=== PATIENT | male | born 1950 | race Caucasian/White ===

== ENCOUNTER 2016-12-18 17:19 | Emergency (ER) | payer MEDICARE, OTHER ==
--- NOTE | 2016-12-18 17:40 | EDM.PDOC ---
ED HPI Skin/Rash - General Chief Complaint: Skin Complaint Time Seen by Provider: 12/18/16 17:30 Source: Reports: Patient History Limitations: Reports: No limitations - History of Present Illness INITIAL COMMENTS - FREE TEXT/NARRATIVE: 3 days ago patient complaining backache and abdominal discomfort. next day he started to develop a rash to his left abdomen that extends around to his back. it is very painful. he is also complaining of generalized bodyaches, fever, chills, fatigue, and postnasal drainage. no diarrhea, vomiting, sob, chest pain. Timing: Reports: still present Location, Skin: Reports: abdomen, back Quality: Reports: Ache, Burning Severity: moderate Known Identified Source: no Associated Symptoms: Reports: headaches, fever/chills, malaise, loss of appetite - Related Data Allergies Allergy/AdvReac Type Severity Reaction Status Date / Time latex Allergy Severe Rash Verified 12/18/16 17:42 atorvastatin [From Lipitor] Allergy Muscle Verified 12/18/16 17:42 Aches azithromycin Allergy Other Verified 12/18/16 17:42 ezetimibe [From Zetia] Allergy Other Verified 12/18/16 17:42 fenofibrate Allergy Other Verified 12/18/16 17:42 gabapentin [From Neurontin] Allergy Other Verified 12/18/16 17:42 Home Meds: Ambulatory Orders Medication Instructions Recorded Confirmed Albuterol [IJD: Ventolin HFA] 2 puff PO Q4H 05/28/16 12/18/16 Aspirin 81 mg PO DAILY 05/28/16 12/18/16 Hydrocodone/Acetaminophen 1 each PO Q8H PRN 05/28/16 12/18/16 [Hydrocodon-Acetaminophn 10-325] LORazepam 0.5 mg PO TID PRN 05/28/16 12/18/16 Levothyroxine 125 mcg PO ACBREAKFAST 05/28/16 12/18/16 Metoprolol Tartrate [Metoprolol 1 tab PO BID 05/28/16 12/18/16 Tartrate] Tamsulosin HCl 2 tab PO DAILY 05/28/16 12/18/16 Tiotropium [Spiriva Handihaler] 1 puff PO DAILY 05/28/16 12/18/16 glipiZIDE [Glipizide] 1 tab PO DAILY 05/28/16 12/18/16 metFORMIN HCl [Metformin HCl] 1,000 mg PO BID 05/28/16 12/18/16 traMADol [Ultram] 50 mg PO Q4H #20 tablet 12/18/16 valACYclovir [Valtrex] 1,000 mg PO BID #14 tab 12/18/16 Past Medical History Cardiovascular History: Reports: CAD, High cholesterol, Hypertension, IN, Stents Other Cardiovascular History: hx of 4 Stents; 2 IN's Respiratory History: Reports: COPD Gastrointestinal History: Reports: GERD Genitourinary History: Reports: Diabetic nephropathy, Retention, urinary Neurological History: Reports: Neuropathy, diabetic Psychiatric History: Reports: Anxiety, Depression Endocrine/Metabolic History: Reports: Diabetes, type II, Hypothyroidism Other Endocrine/Metabolic History: Panhypopituitarism - Infectious Disease History Infectious Disease History: Reports: C-difficile Social & Family History - Family History Family Medical History: Noncontributory Other Cardiac Family History: stroke, heart attack - Tobacco Use Smoking Status *Q: Current Some Day Smoker Years of Tobacco use: 50 Packs/Tins Daily: 1 - Alcohol Use Days Per Week of Alcohol Use: 2 Number of Drinks Per Day: 2 Total Drinks Per Week: 4 - Recreational Drug Use Recreational Drug Use: No ED ROS GENERAL - Review of Systems Review Of Systems: ROS reveals no pertinent complaints other than HPI. ED EXAM, SKIN/RASH Exam: See Below Exam Limited By: No limitations General Appearance: alert, WD/WN, no apparent distress Eye Exam: bilateral eye: other (sclera reddened. ) Ears: normal external exam, normal canal, hearing grossly normal, normal TMs Nose: normal inspection, normal mucosa, no blood Throat/Mouth: Normal inspection, Normal lips, Normal teeth, Normal gums, Normal oropharynx, Normal voice, No airway compromise Head: atraumatic, normocephalic Neck: normal inspection, supple, non-tender, full range of motion Respiratory/Chest: no respiratory distress, lungs clear, normal breath sounds Cardiovascular: regular rate, rhythm, no murmur Skin: Warm, Dry, Zoster-like rash (starts on left abdomen and wraps around to the back. vesicular rash with scabbed over lesions and some serosagnious drainage. ) Location, Skin: abdomen, back Characteristics: linear Associated features: crusting, weeping Course - Vital Signs Last Recorded V/S: Last Vital Signs Temp 38.9 C H 12/18/16 17:25 Pulse 113 H 12/18/16 17:25 Resp 20 12/18/16 17:25 BP 134/90 12/18/16 17:25 Pulse Ox 92 L 12/18/16 17:25 - Orders/Labs/Meds Labs: Laboratory Tests 12/18/16 12/18/16 Range/Units 17:35 17:35 WBC 7.1 (4.0-10.0) x10^3/uL RBC 4.74 (4.5-6.0) x10^6/uL Hgb 15.4 (14.0-18.0) g/dL Hct 44.1 (40.0-52.0) % MCV 93.0 (78.0-93.0) fL MCH 32.5 H (26.0-32.0) pg MCHC 34.9 (32.0-36.0) g/dL RDW Coeff of Enrike 13.2 (10.0-15.0) % Plt Count 156 (130-400) x10^3/uL Neut % (Auto) 70.0 (50.0-80.0) % Lymph % (Auto) 16.1 L (25.0-50.0) % [place] % (Auto) 11.0 (2.0-11.0) % Eos % (Auto) 2.1 (0.0-4.0) % Baso % (Auto) 0.8 (0.2-1.2) % Sodium 132 L (136-145) mmol/L Potassium 4.4 (3.5-5.1) mmol/L Chloride 96 L (98-107) mmol/L Carbon Dioxide 27 (21-32) mmol/L BUN 16 (7-18) mg/dL Creatinine 1.5 H (0.70-1.30) mg/dL Est Cr Clr Drug Dosing 50.02 mL/min Estimated GFR (MDRD) 47 Glucose 156 H (74-106) mg/dL Calcium 8.9 (8.5-10.1) mg/dL Corrected Calcium 9.06 (8.5-10.1) mg/dL Total Bilirubin 0.5 (0.2-1.0) mg/dL AST 58 H (15-37) U/L ALT 109 H (16-63) U/L Alkaline Phosphatase 54 (46-116) U/L Total Protein 7.8 (6.4-8.2) g/dL Albumin 3.8 (3.4-5.0) g/dL Globulin 4.0 Albumin/Globulin Ratio 0.95 Meds: Medications Discontinued Medications Generic Name Dose Route Start Last Admin Trade Name Wil PRN Reason Stop Dose Admin Tramadol HCl 1 packet 12/18/16 17:59 Take Home: Tramadol 50 Mg, 4 Tab Pack PO 12/18/16 18:00 ONETIME ONE Valacyclovir HCl 1,000 mg 12/18/16 17:59 Valtrex PO 12/18/16 18:00 ONETIME ONE Departure - Departure Time of Disposition: 18:30 Disposition: Home, Self-Care 01 Condition: good Clinical Impression: Herpes zoster Prescriptions: traMADol [Ultram] 50 mg PO Q4H #20 tablet valACYclovir [Valtrex] 1,000 mg PO BID #14 tab Instructions: Shingles, [id number] Care Plan Goals: valtrex 1000mg three times a day for 7days. Tramadol for pain every 4-6 hours as needed. Lidocaine topical cream 3%, apply 3 times a day as needed. - Problem List & Annotations (1) Shingles (herpes zoster) polyneuropathy SNOMED Code(s): 494564314 Code(s): B02.23 - POSTHERPETIC POLYNEUROPATHY Status: Acute Priority: Medium Current Visit: Yes (2) Herpes zoster SNOMED Code(s): 4927334 Code(s): B02.9 - ZOSTER WITHOUT COMPLICATIONS Status: Acute Current Visit : Yes Qualifiers: Herpes zoster complications: without complications Qualified Code(s): B02.9 - Zoster without complications - Assessment/Plan Plan: valtrex 1000mg three times a day for 7days. Tramadol for pain every 4-6 hours as needed. Lidocaine topical cream 3%, apply 3 times a day as needed.
[2016-12-18 17:57] VITALS: BP 134/90
[2016-12-18] MEDS ORDERED: Take Home: traMADol 50 MG, 4 Tab Pack PO ONE (17:59)
[2016-12-18] MEDS ORDERED: valACYclovir 1,000 MG Tab PO ONE (17:59)
== END 2016-12-18 18:30 | disposition home or self-care (01) ==
LOC: VM.ED 17:19
DX: B02.9 Zoster without complications (principal); I25.10 Atherosclerotic heart disease of native coronary artery without angina pectoris; E78.00 Pure hypercholesterolemia, unspecified; I10 Essential (primary) hypertension; I25.2 Old myocardial infarction; K21.9 Gastro-esophageal reflux disease without esophagitis; E03.9 Hypothyroidism, unspecified; E11.9 Type 2 diabetes mellitus without complications; F41.9 Anxiety disorder, unspecified; F32.9 Major depressive disorder, single episode, unspecified; F17.210 Nicotine dependence, cigarettes, uncomplicated; Z88.8 Allergy status to other drugs, medicaments and biological substances
CPT/HCPCS: 36415; 80053; 85025; 87804; 99283; A9270

== ENCOUNTER 2017-03-25 12:49 | Emergency (ER) | payer MEDICARE, OTHER ==
[2017-03-25] MEDS ORDERED: Sodium Chloride 0.9% 10 ML Syringe FLUSH PRN (13:03)
[2017-03-25] MEDS ORDERED: LORazepam 1 MG Tab PO ONE (13:08)
[2017-03-25] MEDS ORDERED: Aspirin 81 MG Tab.Chew PO ONE (13:20)
[2017-03-25 13:52] VITALS: BP 128/82
[2017-03-25] MEDS ORDERED: GI Cocktail Oral Solution 30 ML PO ONE (13:56)
--- NOTE | 2017-03-29 02:52 | ER ---
Date of Service: 03/25/2017 SUBJECTIVE: Chip presents to the emergency room with complaints of epigastric pain. The patient states that he is also experiencing some right arm pain but states that he thinks that he slept on it wrong last night. He states that he has been experiencing epigastric pain for approximately 2 weeks and states that he has been unable to get in to see his primary care provider who he identifies as Dr. Gale Leal. The patient states that he does have a history of 4 stents in 2 previous myocardial infarctions. He states that he does feel extremely anxious as well. He states that the discomfort is just similar to when he experiences myocardial infarction. PAST MEDICAL HISTORY: 1. Coronary artery disease. Please see history of present illness. 2. COPD. 3. Chronic pain syndrome. 4. Hypertension. 5. BPH. 6. Hypothyroidism. MEDICATIONS: 1. Tramadol. 2. Metformin. 3. Glipizide. 4. Spiriva. 5. Tamsulosin. 6. Metoprolol tartrate. 7. Levothyroxine. 8. Lorazepam. 9. [place] 10/325. 10.Repatha. 11.Aspirin. 12.Albuterol. ALLERGIES: 1. Zetia. 2. Neurontin. 3. Azithromycin. 4. Lipitor. 5. Latex. 6. Fenofibrate. REVIEW OF SYSTEMS: General: No fever or chills. HEENT: No sore throat, rhinorrhea, or congestion. Respiratory: No shortness breath. Cardiac: Denies any substernal chest pain. Again, he did experience some resolving right arm pain, he states is secondary to a sleeping on the extremity wrong. GI: Does complain of significant epigastric pain and burning sensation and a metallic taste in his mouth. Denies any nausea, vomiting, or diarrhea. No melena, hematochezia, or hematemesis. : Denies any dysuria. Musculoskeletal: No myalgias or arthralgias. Neurologic: No fainting, blackouts, or lightheadedness. PHYSICAL EXAMINATION: General: This is a 67-year-old male patient, in no acute distress. Vital Signs: Blood pressure is 128/82, pulse rate is 85, temperature is 36.4, respiratory rate 16, O2 saturations 94%. Skin: Warm, pink, and dry. HEENT: Head is normocephalic, atraumatic. Mouth, oral mucosa is moist. Lungs: Clear to auscultation. Heart: Regular rate and rhythm. Abdomen: Soft, tender in the epigastrium. There is no masses noted. There is no hepatosplenomegaly noted. Extremities: Without edema. Neurologic: He is alert, oriented, answers all questions appropriately. Speech is fluent. His gait is within normal limits. DIAGNOSTIC DATA: EKG was obtained showing a sinus rhythm without any acute ST or T-wave abnormalities. Abdomen complete was obtained. There was no evidence of any acute pathology. Hematology; WBCs 8.4, hemoglobin is 16.0, platelets are 205. Coags; PT is 12.0, INR is 1.1. Chemistry; sodium is 134, potassium is 4.5, chloride is 97, bicarb is 27, BUN is 15, creatinine is 1.4, creatinine clearance is 52.87. GFR is 51, glucose is 230, calcium is 8.7, corrected calcium is 8.78, total bilirubin is 0.5, AST is 61, ALT is 106, alkaline phosphatase is 49. CK is 200, CK-MB is 4.4, troponin is 0.00. C-reactive protein is 0.6, total protein is 8.1. EMERGENCY ROOM COURSE: The patient was given a GI cocktail. He was also given 1 mg of Ativan p.o. He was observed and had complete resolution of his epigastric pain and stated that he was feeling much less anxious. He remained stable under my care in the emergency room. ASSESSMENT: Gastroesophageal reflux disease. PLAN: The patient will be discharged. We will have him start Pepcid 20 mg once daily in addition to the Protonix that he is already prescribed, but is not taking it. We would like him to follow up in the clinic in the next 7-10 days for a recheck. Return to the emergency room if he developed any chest pain, shortness of breath, or other worrisome signs or symptoms. All questions were answered. MWK: 03/29/2017 00:03:25 MODL: 03/29/2017 02:44:47 /[id number]
== END 2017-03-25 15:30 | disposition home or self-care (01) ==
LOC: VM.ED 12:49
DX: K21.9 Gastro-esophageal reflux disease without esophagitis (principal); I25.10 Atherosclerotic heart disease of native coronary artery without angina pectoris; J44.9 Chronic obstructive pulmonary disease, unspecified; I10 Essential (primary) hypertension; E03.9 Hypothyroidism, unspecified; Z88.1 Allergy status to other antibiotic agents; Z91.040 Latex allergy status; Z88.8 Allergy status to other drugs, medicaments and biological substances
CPT/HCPCS: 36415; 74022; 80053; 82550; 82553; 84484; 85025; 85610; 86140; 93005; 99285; A9270; 99283-GF

== ENCOUNTER 2017-07-09 18:51 | Emergency (ER) | payer OTHER, MEDICARE ==
[2017-07-09] MEDS ORDERED: Sodium Chloride 0.9% 10 ML Syringe FLUSH PRN (18:57)
[2017-07-09] MEDS ORDERED: Aspirin 81 MG Tab.Chew PO ONE (19:00)
[2017-07-09] MEDS ORDERED: Metoprolol Tartrate 5 MG/5 ML SDV IVPUSH ONE (19:00)
[2017-07-09] MEDS ORDERED: Morphine 4 MG/ML Syringe IVPUSH ONE ×2 (19:29→21:29)
[2017-07-09] MEDS ORDERED: GI Cocktail Oral Solution 30 ML PO ONE (19:42)
[2017-07-09 19:45] LABS: CHLORIDE,CL 103 mmol/L (98-107); SODIUM,NA 140 mmol/L (136-145)
[2017-07-09] MEDS ORDERED: Nitroglycerin 0.4 MG Tab.SL SL ONE ×2 (20:15→21:38)
--- NOTE | 2017-07-09 20:36 | EDM.PDOC ---
ED HPI GENERAL MEDICAL PROBLEM - General Chief Complaint: Chest Pain Stated Complaint: STOMACH PAIN LIGHT HEADED Time Seen by Provider: 07/09/17 18:55 Source of Information: Reports: Patient History Limitations: Reports: No Limitations - History of Present Illness INITIAL COMMENTS - FREE TEXT/NARRATIVE: Pt. states that he has been experiencing epigastric and anterior chest pain intermittently for approx. 4 days. Pt. has a complex history, including severe CAD and previous OR with 4 stents. Pt. states that he has been experiencing this discomfort intermittently and states that it is not respirophasic or reproducible. He complains of dyspnea but states that it is not worse than normal, as he has a history of COPD as well. He has been a heavy smoker and continues to smoke at least 1 ppd and has since he was 16. Pt. states that the discomfort radiates into his back. He states that he has been diaphoretic as well as nauseated, but has not been vomiting. Onset Date: 07/06/17 Duration: Intermittent, Waxing/Waning Location: Reports: Chest, Abdomen (history of open mayra), Radiates to (back) Quality: Reports: Ache, Burning, Pressure Severity: Moderate Worsens with: Reports: None Associated Symptoms: Reports: Chest Pain, Diaphoresis, Nausea/Vomiting, Shortness of Breath, Weakness, Other (lightheaded) Epigastric Pain Score (Numeric/FACES): 8 - Related Data Allergies Allergy/AdvReac Type Severity Reaction Status Date / Time latex Allergy Severe Rash Verified 07/09/17 20:27 atorvastatin [From Lipitor] Allergy Muscle Verified 07/09/17 20:27 Aches azithromycin Allergy Other Verified 07/09/17 20:27 carbamazepine Allergy Confusion Verified 07/09/17 20:27 ezetimibe [From Zetia] Allergy Other Verified 07/09/17 20:27 fenofibrate Allergy Other Verified 07/09/17 20:27 gabapentin [From Neurontin] Allergy Other Verified 07/09/17 20:27 Home Meds: Home Meds Albuterol [IJD: Ventolin HFA] 2 puff PO Q4H 05/28/16 [History] Aspirin 81 mg PO DAILY 05/28/16 [History] Hydrocodone/Acetaminophen [Hydrocodon-Acetaminophn 10-325] 1 each PO Q8H PRN [History] LORazepam 0.5 mg PO TID PRN 05/28/16 [History] Levothyroxine 125 mcg PO ACBREAKFAST 05/28/16 [History] Metoprolol Tartrate [Metoprolol Tartrate] 75 mg PO BID 05/28/16 [History] Tamsulosin HCl 2 tab PO DAILY 05/28/16 [History] Tiotropium [Spiriva Handihaler] 1 puff PO DAILY 05/28/16 [History] glipiZIDE [Glipizide] 1 tab PO BID 05/28/16 [History] metFORMIN HCl [Metformin HCl] 1,000 mg PO BID 05/28/16 [History] Famotidine [Pepcid] 20 mg PO DAILY 04/07/17 [History] Fish Oil/DHA/EPA [Fish Oil 1,200 MG] 1,200 mg PO BID 04/07/17 [History] Flaxseed Oil [Flaxseed] 1,000 mg PO DAILY 04/07/17 [History] Furosemide [Lasix] 20 mg PO DAILY PRN 04/07/17 [History] Hydrocortisone [Cortef] 10 mg PO QPM 04/07/17 [History] Hydrocortisone [Cortef] 20 mg PO QAM 04/07/17 [History] Lidocaine 5% [Lidoderm 5%] 1 patch TOP DAILY 04/07/17 [History] Nitroglycerin [Nitrostat] 0.4 mg SL ASDIRECTED 04/07/17 [History] Ondansetron [Zofran] 4 mg PO TID PRN 04/07/17 [History] Pantoprazole Sodium [Protonix] 40 mg PO QAM 04/07/17 [History] Tens Unit [Tens 502] 1 applic TOP ASDIRECTED 04/07/17 [History] Testosterone Cypionate 1.5 ml IM ASDIRECTED 04/07/17 [History] amLODIPine/Benazepril [Lotrel 5-20 MG] 1 cap PO DAILY 04/07/17 [History] Cyanocobalamin (Vitamin B12) [Vitamin B12] 1,000 mcg IM ASDIRECTED 07/09/17 [ History] [place]-3 Acid Ethyl Esters [Lovaza] 1 gm PO BID 07/09/17 [History] Sildenafil Citrate [Sildenafil] 50 mg PO ASDIRECTED PRN 07/09/17 [History] Testosterone Cypionate [Depo-Testosterone] 300 mg IM ASDIRECTED 07/09/17 [ History] Past Medical History HEENT History: Reports: None Cardiovascular History: Reports: CAD, High Cholesterol, Hypertension, OR, Stents Other Cardiovascular History: hx of 4 Stents; 2 OR's Respiratory History: Reports: COPD Gastrointestinal History: Reports: GERD Genitourinary History: Reports: Diabetic Nephropathy, Retention, Urinary Neurological History: Reports: Neuropathy, Diabetic Psychiatric History: Reports: Anxiety, Depression Endocrine/Metabolic History: Reports: Diabetes, Type II, Hypothyroidism Other Endocrine/Metabolic History: Panhypopituitarism Dermatologic History: Reports: Other (See Below) Other Dermatologic History: 12/18 shingles - Infectious Disease History Infectious Disease History: Reports: C-Difficile - Past Surgical History HEENT Surgical History: Reports: Other (See Below) Other HEENT Surgeries/Procedures: Open Mayra. Cardiovascular Surgical History: Reports: Coronary Artery Stent Social & Family History - Family History Family Medical History: Noncontributory Other Cardiac Family History: stroke, heart attack - Tobacco Use Smoking Status *Q: Current Every Day Smoker Years of Tobacco use: 52 Packs/Tins Daily: 1 Used Tobacco, but Quit: No Second Hand Smoke Exposure: Yes - Caffeine Use Caffeine Use: Reports: Coffee - Alcohol Use Days Per Week of Alcohol Use: 4 Number of Drinks Per Day: 6 Total Drinks Per Week: 24 Date of Last Drink: 07/09/17 - Recreational Drug Use Recreational Drug Use: No ED ROS GENERAL - Review of Systems Review Of Systems: See Below Constitutional: Reports: Weakness, Fatigue, Diaphoresis HEENT: Reports: No Symptoms Respiratory: Reports: Shortness of Breath Cardiovascular: Reports: Chest Pain GI/Abdominal: Reports: Nausea, Other (epigastric pain) : Reports: No Symptoms Musculoskeletal: Reports: No Symptoms Skin: Reports: No Symptoms ED EXAM, GENERAL - Physical Exam Exam: See Below General Appearance: Alert, No Apparent Distress Eye Exam: Bilateral Eye: EOMI, Normal Inspection Ears: Normal External Exam Throat/Mouth: Normal Oropharynx, No Airway Compromise Head: Atraumatic, Normocephalic Neck: Normal Inspection, Supple, Non-Tender Respiratory/Chest: No Respiratory Distress, Decreased Breath Sounds, Prolonged Expiration Cardiovascular: Regular Rate, Rhythm, No Edema, No Murmur GI/Abdominal: Normal Bowel Sounds, Soft, Non-Tender, No Organomegaly Back Exam: Normal Inspection, Full Range of Motion Extremities: Normal Inspection, Normal Range of Motion, Non-Tender Neurological: Alert, Oriented, CN II-XII Intact, Normal Cognition, Normal Gait, Normal Reflexes, No Motor/Sensory Deficits Psychiatric: Normal Affect Skin Exam: Warm, Dry, Intact, Normal Color EKG INTERPRETATION EKG Date: 07/09/17 Time: 20:11 Course - Vital Signs Last Recorded V/S: Last Vital Signs Temp 37.5 C 07/09/17 19:21 Pulse 89 07/09/17 20:17 Resp 20 07/09/17 20:17 BP 149/91 H 07/09/17 20:17 Pulse Ox 95 07/09/17 20:17 - Orders/Labs/Meds Orders: Active Orders 24 hr Category Date Time Status EKG Documentation Completion [RC] STAT Care 07/09/17 18:57 Ordered EKG Documentation Completion [RC] STAT Care 07/09/17 20:06 Ordered Oxygen Therapy [RC] PRN Care 07/09/17 18:57 Active Chest 1V Frontal [CR] Stat Exams 07/09/17 19:15 Taken Sodium Chloride 0.9% [Saline Flush] Med 07/09/17 18:57 Active 10 ml FLUSH ASDIRECTED PRN Peripheral IV Insertion Adult [OM.PC] Routine Oth 07/09/17 18:58 Ordered Medication Orders Sodium Chloride (Saline Flush) 10 ml FLUSH ASDIRECTED PRN PRN Reason: Keep Vein Open Last Admin: 07/09/17 19:17 Dose: 10 ml Labs: Laboratory Tests 07/09/17 07/09/17 07/09/17 Range/Units 19:00 19:00 19:00 WBC 9.7 (4.0-10.0) x10^3/uL RBC 4.72 (4.5-6.0) x10^6/uL Hgb 15.3 (14.0-18.0) g/dL Hct 45.4 (40.0-52.0) % MCV 96.2 H (78.0-93.0) fL MCH 32.4 H (26.0-32.0) pg MCHC 33.7 (32.0-36.0) g/dL RDW Coeff of Enrike 15.0 (10.0-15.0) % Plt Count 212 (130-400) x10^3/uL Add Manual Diff Yes Neutrophils % (Manual) 62 (50-80) % Band Neutrophils % 2 (0-6) % Lymphocytes % (Manual) 21 L (25-50) % Monocytes % (Manual) 10 (2-11) % Eosinophils % (Manual) 5 H (0-4) % Platelet Estimate Adequate Polychromasia Rare Anisocytosis 1+ slight H Macrocytosis 1+ slight H Spherocytes 1+ slight H PT 11.2 (9.8-11.8) SEC INR 1.0 L (2.0-3.5) Sodium 140 (136-145) mmol/L Potassium 4.6 (3.5-5.1) mmol/L Chloride 103 (98-107) mmol/L Carbon Dioxide 27 (21-32) mmol/L BUN 20 H (7-18) mg/dL Creatinine 1.4 H (0.70-1.30) mg/dL Est Cr Clr Drug Dosing TNP Estimated GFR (MDRD) 51 Glucose 172 H (74-106) mg/dL Calcium 9.1 (8.5-10.1) mg/dL Corrected Calcium 9.10 (8.5-10.1) mg/dL Magnesium 1.8 (1.8-2.4) mg/dL Total Bilirubin 0.3 (0.2-1.0) mg/dL AST 47 H (15-37) U/L ALT 94 H (16-63) U/L Alkaline Phosphatase 40 L (46-116) U/L Creatine Kinase 206 (39-308) U/L Creatine Kinase Index 2.1 (0.0-4.0) % CK-MB (CK-2) 4.4 H (0.0-3.6) ng/mL POC Troponin I (0.00-0.08) ng/mL Total Protein 8.0 (6.4-8.2) g/dL Albumin 4.0 (3.4-5.0) g/dL Globulin 4.0 Albumin/Globulin Ratio 1.00 07/09/17 Range/Units 19:11 WBC (4.0-10.0) x10^3/uL RBC (4.5-6.0) x10^6/uL Hgb (14.0-18.0) g/dL Hct (40.0-52.0) % MCV (78.0-93.0) fL MCH (26.0-32.0) pg MCHC (32.0-36.0) g/dL RDW Coeff of [place] (10.0-15.0) % Plt Count (130-400) x10^3/uL Add Manual Diff Neutrophils % (Manual) (50-80) % Band Neutrophils % (0-6) % Lymphocytes % (Manual) (25-50) % Monocytes % (Manual) (2-11) % Eosinophils % (Manual) (0-4) % Platelet Estimate Polychromasia Anisocytosis Macrocytosis Spherocytes PT (9.8-11.8) SEC INR (2.0-3.5) Sodium (136-145) mmol/L Potassium (3.5-5.1) mmol/L Chloride (98-107) mmol/L Carbon Dioxide (21-32) mmol/L BUN (7-18) mg/dL Creatinine (0.70-1.30) mg/dL Est Cr Clr Drug Dosing Estimated GFR (MDRD) Glucose (74-106) mg/dL Calcium (8.5-10.1) mg/dL Corrected Calcium (8.5-10.1) mg/dL Magnesium (1.8-2.4) mg/dL Total Bilirubin (0.2-1.0) mg/dL AST (15-37) U/L ALT (16-63) U/L Alkaline Phosphatase (46-116) U/L Creatine Kinase (39-308) U/L Creatine Kinase Index (0.0-4.0) % CK-MB (CK-2) (0.0-3.6) ng/mL POC Troponin I 0.00 (0.00-0.08) ng/mL Total Protein (6.4-8.2) g/dL Albumin (3.4-5.0) g/dL Globulin Albumin/Globulin Ratio Meds: Medications Generic Name Dose Route Start Last Admin Trade Name Freq PRN Reason Stop Dose Admin Sodium Chloride 10 ml 07/09/17 18:57 07/09/17 19:17 Saline Flush FLUSH 10 ml ASDIRECTED PRN Administration Keep Vein Open Discontinued Medications Generic Name Dose Route Start Last Admin Trade Name Freq PRN Reason Stop Dose Admin Al Hydroxide/Mg Hydroxide 30 ml 07/09/17 19:42 07/09/17 19:52 Gi Cocktail PO 07/09/17 19:43 30 ml ONETIME ONE Administration Aspirin 324 mg 07/09/17 19:00 07/09/17 19:16 Aspirin PO 07/09/17 19:01 324 mg ONETIME ONE Administration Metoprolol Tartrate 5 mg 07/09/17 19:00 07/09/17 19:16 Lopressor IVPUSH 07/09/17 19:01 5 mg ONETIME ONE Administration Morphine Sulfate 8 mg 07/09/17 19:29 07/09/17 19:39 Morphine IVPUSH 07/09/17 19:30 8 mg ONETIME ONE Administration Nitroglycerin 0.4 mg 07/09/17 20:15 Nitrostat SL 07/09/17 20:16 ONETIME ONE - Radiology Interpretation Free Text/Narrative:: 1 view chest was negative - Re-Assessments/Exams Free Text/Narrative Re-Assessment/Exam: 07/09/17 20:42 Pt. blood pressure decreased into normal range following IV lopressor. Pt. was given 8mg morphine and a GI cocktail. Pt. states pain decreased to approx. 4. Pt. was given 324mg aspirin PO and 0.4mg nitro SL. Pt. states that pain decreased to 2. Departure - Departure Time of Disposition: 20:55 Disposition: DC/Tfer to [facility] Reason for Transfer *Q: Other (unstable angina) Condition: Serious Clinical Impression: Acute coronary syndrome Referrals: Gale Leal DO [Primary Care Provider] - Forms: ED Department Discharge, Interfacility Transfer DEE DEE - My Orders Last 24 Hours: My Active Orders 07/09/17 18:57 EKG Documentation Completion [RC] STAT Oxygen Therapy [RC] PRN Sodium Chloride 0.9% [Saline Flush] 10 ml FLUSH ASDIRECTED PRN 07/09/17 18:58 Peripheral IV Insertion Adult [OM.PC] Routine 07/09/17 19:15 Chest 1V Frontal [CR] Stat 07/09/17 20:06 EKG Documentation Completion [RC] STAT - Assessment/Plan Last 24 Hours: My Active Orders 07/09/17 18:57 EKG Documentation Completion [RC] STAT Oxygen Therapy [RC] PRN Sodium Chloride 0.9% [Saline Flush] 10 ml FLUSH ASDIRECTED PRN 07/09/17 18:58 Peripheral IV Insertion Adult [OM.PC] Routine 07/09/17 19:15 Chest 1V Frontal [CR] Stat 07/09/17 20:06 EKG Documentation Completion [RC] STAT Assessment:: ACS Plan: Pt. will be transferred to in [place] with ACS/unstable angina. He does have an elevated CK-MB. He will be transferred via [facility] ground ambulance. Dr. Wong is the accepting physician.
[2017-07-09] MEDS ORDERED: Enoxaparin 100 MG/1 ML Syringe SUBCUT ONE (21:32)
[2017-07-09 21:52] VITALS: BP 180/101
== END 2017-07-09 22:25 | disposition short-term general hospital (02) ==
LOC: VM.ED 18:51
DX: I24.9 Acute ischemic heart disease, unspecified (principal); E78.00 Pure hypercholesterolemia, unspecified; I10 Essential (primary) hypertension; K21.9 Gastro-esophageal reflux disease without esophagitis; E03.9 Hypothyroidism, unspecified; E11.21 Type 2 diabetes mellitus with diabetic nephropathy; F17.210 Nicotine dependence, cigarettes, uncomplicated; Z88.1 Allergy status to other antibiotic agents; Z88.8 Allergy status to other drugs, medicaments and biological substances; Z79.899 Other long term (current) drug therapy; Z91.040 Latex allergy status
CPT/HCPCS: 71010; 80053; 82550; 82553; 83735; 84484; 85025; 85610; 93005; 96372; 96374; 96375; 96376; 99285; A9270; J1650; J2270; J7050; 99284-GF; J3490

== ENCOUNTER 2017-10-10 12:40 | Observation (INO) | payer OTHER, MEDICARE ==
[2017-10-10 13:45] LABS: CHLORIDE,CL 99 mmol/L (98-107); SODIUM,NA 138 mmol/L (136-145)
[2017-10-10] MEDS ORDERED: Lactated Ringers 1,000 ML IV SCH (15:45)
[2017-10-10] MEDS ORDERED: NS + KCl 20mEq/L 1,000 ML IV SCH (15:45)
[2017-10-10] MEDS ORDERED: LORazepam 0.5 MG Tab PO PRN (15:46)
[2017-10-10] MEDS ORDERED: Furosemide 20 MG Tab PO PRN (15:46)
[2017-10-10] MEDS ORDERED: [UNRECOGNIZED DRUG - OTHER] TOP SCH (16:00)
[2017-10-10] MEDS ORDERED: Albuterol 8 GM Inhaler INH PRN (16:12)
[2017-10-10] MEDS: Nicotine 21 MG/24 Hr Patch TRDERM SCH (16:23)
[2017-10-10] MEDS: Enoxaparin 40 MG/0.4 ML Syringe SUBCUT SCH (16:24)
[2017-10-10] MEDS: metFORMIN 500 MG Tab PO SCH ×2 (16:24→17:32)
[2017-10-10] MEDS: Metoclopramide 10 MG/2 ML SDV IVPUSH SCH ×2 (16:24→19:53)
[2017-10-10] MEDS: glipiZIDE 5 MG Tab PO SCH ×2 (16:24→17:32)
[2017-10-10] MEDS: Acetaminophen/HYDROcodone 325-10 MG Tab PO PRN (16:30)
[2017-10-10] MEDS: Sodium Chloride 0.9% 10 ML Syringe FLUSH PRN (19:55)
[2017-10-10] MEDS ORDERED: OMEGA ACID ETHYL ESTERS PO SCH (20:00)
[2017-10-10] MEDS ORDERED: Tamsulosin 0.4 MG Cap.ER PO SCH (20:00)
[2017-10-10] MEDS ORDERED: EPA PO SCH (20:00)
[2017-10-10] MEDS ORDERED: FISH OIL PO SCH (20:00)
[2017-10-10] MEDS ORDERED: DHA PO SCH (20:00)
[2017-10-10] MEDS ORDERED: D5 1/2 NS w/ 20 mEq/L KCl 1,000 ML IV SCH (20:30)
--- NOTE | 2017-10-10 22:01 | EDM.PDOC ---
ED HPI GENERAL MEDICAL PROBLEM - General Chief Complaint: Abdominal Pain Time Seen by Provider: 10/10/17 12:55 Source of Information: Reports: Patient History Limitations: Reports: No Limitations - History of Present Illness INITIAL COMMENTS - FREE TEXT/NARRATIVE: Pt. complains of several day history of abdominal bloating and cramps. He denies any fever or chills. No weakness. No nausea/vomiting or diarrhea. Last BM was a small one earlier today. Pt. denies any chest pain or shortness of breath. He did have some epigastric pain which has resolved. Pt. denies any bloody stools. Not experiencing any lightheadedness. Onset Date: 10/05/17 Duration: Constant Location: Reports: Abdomen Quality: Reports: Ache Severity: Moderate Improves with: Reports: Rest Worsens with: Reports: Movement Associated Symptoms: Reports: Loss of Appetite. Denies: Confusion, Chest Pain, Fever/Chills, Headaches, Nausea/Vomiting Treatments LEARNING ADMINISTRATOR: Reports: Aspirin Abdomen Pain Score (Numeric/FACES): 5 - Related Data Allergies Allergy/AdvReac Type Severity Reaction Status Date / Time latex Allergy Severe Rash Verified 10/10/17 14:35 azithromycin Allergy Other Verified 10/10/17 14:35 ezetimibe [From Zetia] Allergy Other Verified 10/10/17 14:35 fenofibrate Allergy Other Verified 10/10/17 14:35 gabapentin [From Neurontin] Allergy Other Verified 10/10/17 14:35 atorvastatin [From Lipitor] AdvReac Muscle Verified 10/10/17 15:02 Aches carbamazepine AdvReac Confusion Verified 10/10/17 15:02 Home Meds: Home Meds Albuterol [IJD: Ventolin HFA] 2 puff PO Q4H PRN 05/28/16 [History] Aspirin 81 mg PO DAILY 05/28/16 [History] Hydrocodone/Acetaminophen [Hydrocodon-Acetaminophn 10-325] 1 each PO Q8H PRN [History] LORazepam 0.5 mg PO TID PRN 05/28/16 [History] Levothyroxine 125 mcg PO ACBREAKFAST 05/28/16 [History] Tamsulosin HCl 0.8 mg PO DAILY 05/28/16 [History] Tiotropium [Spiriva Handihaler] 1 inh PO DAILY 05/28/16 [History] glipiZIDE [Glipizide] 5 mg PO BID 05/28/16 [History] metFORMIN HCl [Metformin HCl] 1,000 mg PO BID 05/28/16 [History] Famotidine [Pepcid] 20 mg PO DAILY 04/07/17 [History] Fish Oil/DHA/EPA [Fish Oil 1,200 MG] 1,200 mg PO BID 04/07/17 [History] Flaxseed Oil [Flaxseed] 1,000 mg PO DAILY 04/07/17 [History] Furosemide [Lasix] 20 mg PO DAILY PRN 04/07/17 [History] Hydrocortisone [Cortef] 10 mg PO QPM 04/07/17 [History] Hydrocortisone [Cortef] 20 mg PO QAM 04/07/17 [History] Nitroglycerin [Nitrostat] 0.4 mg SL Q5M PRN 04/07/17 [History] Pantoprazole Sodium [Protonix] 40 mg PO QAM 04/07/17 [History] Tens Unit [Tens 502] 1 applic TOP ASDIRECTED 04/07/17 [History] Parnell-3 Acid Ethyl Esters [Lovaza] 1 gm PO BID 07/09/17 [History] Sildenafil Citrate [Sildenafil] 50 mg PO DAILY PRN 07/09/17 [History] Testosterone Cypionate [Depo-Testosterone] 300 mg IM ASDIRECTED 07/09/17 [ History] Hydrocortisone 10 - 20 mg PO DAILY PRN 10/10/17 [History] Metoprolol Succinate [Toprol Xl] 100 mg PO DAILY 10/10/17 [History] Parnell-3 Fatty Acids/Fish Oil [Fish Oil 1,200 mg Softgel] 1,200 mg PO BID [History] amLODIPine/Benazepril [Lotrel 5-20 MG] 1 cap PO DAILY 10/10/17 [History] Past Medical History HEENT History: Reports: None, Other (See Below) Other HEENT History: astigmatism; myopia Cardiovascular History: Reports: Angina, CAD, High Cholesterol, Hypertension, NC , Stents Other Cardiovascular History: hx of 4 Stents; 2 NC's Respiratory History: Reports: COPD Gastrointestinal History: Reports: GERD Genitourinary History: Reports: Diabetic Nephropathy, Retention, Urinary, Other (See Below) Other Genitourinary History: erectile dysfunction Musculoskeletal History: Reports: Other (See Below) Other Musculoskeletal History: back pain Neurological History: Reports: Neuropathy, Diabetic Psychiatric History: Reports: Addiction, Anxiety, Depression, PTSD, Other (See Below) Other Psychiatric History: social phobia Endocrine/Metabolic History: Reports: Diabetes, Type II, Hypothyroidism Other Endocrine/Metabolic History: Panhypopituitarism; pituitary tumor Dermatologic History: Reports: Eczema, Other (See Below) Other Dermatologic History: 12/18 shingles - Infectious Disease History Infectious Disease History: Reports: C-Difficile - Past Surgical History HEENT Surgical History: Reports: Tonsillectomy, Other (See Below) Other HEENT Surgeries/Procedures: Open Mayra. Cardiovascular Surgical History: Reports: Coronary Artery Stent, Other (See Below) Other Cardiovascular Surgeries/Procedures: coronary angioplasty GI Surgical History: Reports: Cholecystectomy, Colonoscopy, Other (See Below) Other GI Surgeries/Procedures: upper endoscopy Male Surgical History: Reports: Vasectomy Endocrine Surgical History: Reports: Other (See Below) Other Endocrine Surgeries/Procedures: pituitary removed Musculoskeletal Surgical History: Reports: Other (See Below) Other Musculoskeletal Surgeries/Procedures:: lumbar spine fusion; fusion lumbar thoracic spine Social & Family History - Family History Family Medical History: Noncontributory Other Cardiac Family History: stroke, heart attack - Tobacco Use Smoking Status *Q: Heavy Tobacco Smoker Years of Tobacco use: 40 Packs/Tins Daily: 1.5 Used Tobacco, but Quit: No Second Hand Smoke Exposure: Yes - Caffeine Use Caffeine Use: Reports: Coffee - Alcohol Use Days Per Week of Alcohol Use: 1 Number of Drinks Per Day: 2 Total Drinks Per Week: 2 - Recreational Drug Use Recreational Drug Use: No ED ROS GENERAL - Review of Systems Review Of Systems: See Below Constitutional: Reports: No Symptoms HEENT: Reports: No Symptoms Respiratory: Reports: No Symptoms Cardiovascular: Reports: No Symptoms, Other (hx. of CAD) Endocrine: Reports: Other (hx. of diabetes) GI/Abdominal: Reports: Abdominal Pain, Distension : Reports: No Symptoms Musculoskeletal: Reports: No Symptoms Skin: Reports: No Symptoms Neurological: Reports: No Symptoms Psychiatric: Reports: No Symptoms Hematologic/Lymphatic: Reports: No Symptoms Immunologic: Reports: No Symptoms ED EXAM, GENERAL - Physical Exam Exam: See Below Exam Limited By: No Limitations General Appearance: Alert, WD/WN, No Apparent Distress Nose: Normal Inspection, Normal Mucosa, No Blood Throat/Mouth: Normal Inspection, Normal Lips, Normal Teeth, Normal Gums, Normal Oropharynx, Normal Voice, No Airway Compromise Head: Atraumatic, Normocephalic Neck: Normal Inspection, Supple, Non-Tender, Full Range of Motion Respiratory/Chest: No Respiratory Distress, Lungs Clear, Normal Breath Sounds, No Accessory Muscle Use, Chest Non-Tender Cardiovascular: Normal Peripheral Pulses, Regular Rate, Rhythm, No Edema, No Gallop, No JVD, No Murmur, No Rub GI/Abdominal: Distended, Tender, Abnormal Bowel Sounds (diminished) (Male) Exam: Deferred Back Exam: Normal Inspection Extremities: Normal Inspection, Normal Range of Motion, No Pedal Edema Neurological: Alert (; ), Oriented, CN II-XII Intact, Normal Cognition, Normal Gait, Normal Reflexes, No Motor/Sensory Deficits Psychiatric: Normal Affect, Normal Mood Skin Exam: Warm, Dry, Intact, Normal Color, No Rash Lymphatic: No Adenopathy EKG INTERPRETATION Rhythm: NSR Course - Vital Signs Last Recorded V/S: Last Vital Signs Temp 36.9 C 10/10/17 17:08 Pulse 78 10/10/17 17:08 Resp 18 10/10/17 14:33 BP 152/90 H 10/10/17 17:08 Pulse Ox 93 L 10/10/17 20:00 - Orders/Labs/Meds Orders: Active Orders 24 hr Category Date Time Status EKG Documentation Completion [RC] STAT Care 10/10/17 13:10 Ordered Abdomen Series w Chest 1V [CR] Stat Exams 10/10/17 13:10 Taken Sodium Chloride 0.9% [Saline Flush] Med 10/10/17 13:09 Active 10 ml FLUSH ASDIRECTED PRN Peripheral IV Insertion Adult [OM.PC] Routine Oth 10/10/17 13:10 Ordered Medication Orders Hydrocodone Bitart/Acetaminophen (Teachey 325-10 Mg) 1 tab PO Q8H PRN PRN Reason: Pain Last Admin: 10/10/17 16:30 Dose: 1 tab Albuterol (Ventolin Hfa) 0 gm INH Q4H PRN PRN Reason: Shortness of Breath Amlodipine Besylate (Norvasc) 5 mg PO DAILY [facility] Aspirin (Aspirin) 81 mg PO DAILY [facility] Enoxaparin Sodium (Lovenox) 40 mg SUBCUT DAILY DIANE Last Admin: 10/10/17 16:24 Dose: 40 mg Famotidine (Pepcid) 20 mg PO DAILY [facility] Furosemide (Lasix) 20 mg PO DAILY PRN PRN Reason: Edema Hydrocortisone (Cortef) 10 mg PO QPM [facility] Last Admin: 10/10/17 19:53 Dose: 10 mg Hydrocortisone (Cortef) 20 mg PO QAM [facility] Lactated Ringer's (Ringers, Lactated) 1,000 mls @ 250 mls/hr IV ASDIRECTED [facility] Last Admin: 10/10/17 16:15 Dose: 250 mls/hr Potassium Chloride/Dextrose/Sod Cl (D5 1/2 Ns W/ 20 Meq/L Kcl) 1,000 mls @ 100 mls/hr IV ASDIRECTED [facility] Last Admin: 10/10/17 20:32 Dose: 100 mls/hr Levothyroxine Sodium (Levothyroxine) 125 mcg PO ACBREAKFAST [facility] Lisinopril (Prinivil) 20 mg PO DAILY [facility] Lorazepam (Ativan) 0.5 mg PO TID PRN PRN Reason: Anxiety Metoclopramide HCl (Reglan) 5 mg IVPUSH Q4H [facility] Last Admin: 10/10/17 19:53 Dose: 5 mg Admin: 10/10/17 16:24 Dose: 5 mg Metoprolol Succinate (Toprol Xl) 100 mg PO DAILY [facility] Nicotine (Habitrol) 21 mg TRDERM DAILY [facility] Last Admin: 10/10/17 16:23 Dose: 21 mg Non-Formulary Medication (Fish Oil/Dha/Epa [Fish Oil 1,200 Mg]) 1,200 mg PO BID [facility] Non-Formulary Medication (Flaxseed Oil [Flaxseed]) 1,000 mg PO DAILY [facility] Non-Formulary Medication (Parnell-3 Acid Ethyl Esters [Lovaza]) 1 gm PO BID [facility] Non-Formulary Medication (Tens Unit [Tens 502]) 1 applic TOP ASDIRECTED [facility] Pantoprazole Sodium (Protonix) 40 mg PO QAM [facility] Sodium Chloride (Saline Flush) 10 ml FLUSH ASDIRECTED PRN PRN Reason: Keep Vein Open Last Admin: 10/10/17 19:55 Dose: 10 ml Tamsulosin HCl (Flomax) 0.8 mg PO BEDTIME [facility] Last Admin: 10/10/17 19:59 Dose: 0.8 mg Tiotropium Clay (Spiriva Handihaler) 18 mcg INH DAILYRT [facility] Labs: Laboratory Tests 10/10/17 10/10/17 10/10/17 Range/Units 13:20 13:20 13:20 WBC 8.4 (4.0-10.0) x10^3/uL RBC 4.44 L (4.5-6.0) x10^6/uL Hgb 14.9 (14.0-18.0) g/dL Hct 42.4 (40.0-52.0) % MCV 95.5 H (78.0-93.0) fL MCH 33.6 H (26.0-32.0) pg MCHC 35.1 (32.0-36.0) g/dL RDW Coeff of Enrike 14.7 (10.0-15.0) % Plt Count 184 (130-400) x10^3/uL Neut % (Auto) 61.6 (50.0-80.0) % Lymph % (Auto) 26.6 (25.0-50.0) % [facility] % (Auto) 7.1 (2.0-11.0) % Eos % (Auto) 4.2 H (0.0-4.0) % Baso % (Auto) 0.5 (0.2-1.2) % PT 11.0 (9.8-11.8) SEC INR 1.0 L (2.0-3.5) Sodium 138 (136-145) mmol/L Potassium 4.0 (3.5-5.1) mmol/L Chloride 99 (98-107) mmol/L Carbon Dioxide 26 (21-32) mmol/L BUN 15 (7-18) mg/dL Creatinine 1.4 H (0.70-1.30) mg/dL Est Cr Clr Drug Dosing TNP Estimated GFR (MDRD) 51 Glucose 203 H (74-106) mg/dL Lactic Acid (0.4-2.0) mmol/L Calcium 8.5 (8.5-10.1) mg/dL Corrected Calcium 8.66 (8.5-10.1) mg/dL Phosphorus (2.6-4.7) mg/dL Magnesium (1.8-2.4) mg/dL Total Bilirubin 0.5 (0.2-1.0) mg/dL AST 62 H (15-37) U/L ALT 103 H (16-63) U/L Alkaline Phosphatase 53 (46-116) U/L Troponin I (<=0.056) ng/mL C-Reactive Protein 0.7 (<=0.9) mg/dL Total Protein 7.8 (6.4-8.2) g/dL Albumin 3.8 (3.4-5.0) g/dL Globulin 4.0 Albumin/Globulin Ratio 0.95 Amylase 38 (25-115) U/L Lipase (73-393) U/L 10/10/17 10/10/17 10/10/17 Range/Units 13:20 13:30 13:30 WBC (4.0-10.0) x10^3/uL RBC (4.5-6.0) x10^6/uL Hgb (14.0-18.0) g/dL Hct (40.0-52.0) % MCV (78.0-93.0) fL MCH (26.0-32.0) pg MCHC (32.0-36.0) g/dL RDW Coeff of Enrike (10.0-15.0) % Plt Count (130-400) x10^3/uL Neut % (Auto) (50.0-80.0) % Lymph % (Auto) (25.0-50.0) % [facility] % (Auto) (2.0-11.0) % Eos % (Auto) (0.0-4.0) % Baso % (Auto) (0.2-1.2) % PT (9.8-11.8) SEC INR (2.0-3.5) Sodium (136-145) mmol/L Potassium (3.5-5.1) mmol/L Chloride (98-107) mmol/L Carbon Dioxide (21-32) mmol/L BUN (7-18) mg/dL Creatinine (0.70-1.30) mg/dL Est Cr Clr Drug Dosing Estimated GFR (MDRD) Glucose (74-106) mg/dL Lactic Acid 1.6 (0.4-2.0) mmol/L Calcium (8.5-10.1) mg/dL Corrected Calcium (8.5-10.1) mg/dL Phosphorus 3.0 (2.6-4.7) mg/dL Magnesium 2.0 (1.8-2.4) mg/dL Total Bilirubin (0.2-1.0) mg/dL AST (15-37) U/L ALT (16-63) U/L Alkaline Phosphatase (46-116) U/L Troponin I < 0.017 (<=0.056) ng/mL C-Reactive Protein (<=0.9) mg/dL Total Protein (6.4-8.2) g/dL Albumin (3.4-5.0) g/dL Globulin Albumin/Globulin Ratio Amylase (25-115) U/L Lipase 161 (73-393) U/L Meds: Medications Generic Name Dose Route Start Last Admin Trade Name Freq PRN Reason Stop Dose Admin Hydrocodone Bitart/Acetaminophen 1 tab 10/10/17 15:46 10/10/17 16:30 Teachey 325-10 Mg PO 1 tab Q8H PRN Administration Pain Albuterol 0 gm 10/10/17 16:12 Ventolin Hfa INH Q4H PRN Shortness of Breath Amlodipine Besylate 5 mg 10/11/17 08:00 Norvasc PO DAILY [facility] Aspirin 81 mg 10/11/17 08:00 Aspirin PO DAILY [facility] Enoxaparin Sodium 40 mg 10/10/17 16:00 10/10/17 16:24 Lovenox SUBCUT 40 mg DAILY [facility] Administration Famotidine 20 mg 10/11/17 08:00 Pepcid PO DAILY DIANE Furosemide 20 mg 10/10/17 15:46 Lasix PO DAILY PRN Edema Hydrocortisone 10 mg 10/10/17 20:00 10/10/17 19:53 Cortef PO 10 mg QPM DIANE Administration Hydrocortisone 20 mg 10/11/17 08:00 Cortef PO QAM [facility] Lactated Ringer's 1,000 mls @ 250 mls/hr 10/10/17 15:45 10/10/17 16:15 Ringers, Lactated IV 250 mls/hr ASDIRECTED DI[facility] Administration Potassium Chloride/Dextrose/Sod Cl 1,000 mls @ 100 mls/hr 10/10/17 20:30 06/19 20:32 D5 1/2 Ns W/ 20 Meq/L Kcl IV 100 mls/hr ASDIRECTED DI[facility] Administration Levothyroxine Sodium 125 mcg 10/11/17 07:00 Levothyroxine PO ACBREAKFAST [facility] Lisinopril 20 mg 10/11/17 08:00 Prinivil PO DAILY [facility] Lorazepam 0.5 mg 10/10/17 15:46 Ativan PO TID PRN Anxiety Metoclopramide HCl 5 mg 10/10/17 16:00 10/10/17 19:53 Reglan IVPUSH 5 mg Q4H DIANE Administration Metoprolol Succinate 100 mg 10/11/17 08:00 Toprol Xl PO DAILY [facility] Nicotine 21 mg 10/10/17 16:00 10/10/17 16:23 Habitrol TRDERM 21 mg DAILY [facility] Administration Non-Formulary Medication 1,200 mg 10/10/17 20:00 Fish Oil/Dha/Epa [Fish Oil 1,200 Mg] PO BID [facility] Non-Formulary Medication 1,000 mg 10/11/17 08:00 Flaxseed Oil [Flaxseed] PO DAILY [facility] Non-Formulary Medication 1 gm 10/10/17 20:00 Parnell-3 Acid Ethyl Esters [Lovaza] PO BID [facility] Non-Formulary Medication 1 applic 10/10/17 16:00 Tens Unit [Tens 502] TOP ASDIRECTED [facility] Pantoprazole Sodium 40 mg 10/11/17 08:00 Protonix PO QAM [facility] Sodium Chloride 10 ml 10/10/17 13:09 10/10/17 19:55 Saline Flush FLUSH 10 ml ASDIRECTED PRN Administration Keep Vein Open Tamsulosin HCl 0.8 mg 10/10/17 20:00 10/10/17 19:59 Flomax PO 0.8 mg BEDTIME [facility] Administration Tiotropium Clay 18 mcg 10/11/17 07:00 Spiriva Handihaler INH DAILYRT [facility] Discontinued Medications Generic Name Dose Route Start Last Admin Trade Name Freq PRN Reason Stop Dose Admin Glipizide 5 mg 10/10/17 18:00 10/10/17 17:32 Glucotrol PO Not Given BIDMEALS [facility] Potassium Chloride/Sodium Chloride 1,000 mls @ 125 mls/hr 10/10/17 15:45 06/19 19:54 Normal Saline With 20 Meq Kcl IV 125 mls/hr ASDIRECTED DI[facility] Administration Metformin HCl 1,000 mg 10/10/17 18:00 10/10/17 17:32 Glucophage PO Not Given BIDMEALS DIANE - Radiology Interpretation Free Text/Narrative:: flat/upright abdomen x-ray showed evidence of a mild ileus Departure - Departure Time of Disposition: 14:33 Disposition: Refer to Observation Clinical Impression: Ileus Abdominal pain Qualifiers: Abdominal location: epigastric Qualified Code(s): R10.13 - Epigastric pain - Discharge Information - My Orders Last 24 Hours: My Active Orders 10/10/17 13:09 Sodium Chloride 0.9% [Saline Flush] 10 ml FLUSH ASDIRECTED PRN 10/10/17 13:10 EKG Documentation Completion [RC] STAT Abdomen Series w Chest 1V [CR] Stat Peripheral IV Insertion Adult [OM.PC] Routine - Assessment/Plan Last 24 Hours: My Active Orders 10/10/17 13:09 Sodium Chloride 0.9% [Saline Flush] 10 ml FLUSH ASDIRECTED PRN 10/10/17 13:10 EKG Documentation Completion [RC] STAT Abdomen Series w Chest 1V [CR] Stat Peripheral IV Insertion Adult [OM.PC] Routine Assessment:: ileus Plan: Admit observation with tele Code status 1 Diet NPO Vitals Q 4 with CIWAA NPO except for medications Activity as tolerated. Encouraged to ambulate. Bathroom privileges. Blood glucose checks 4x/day LR 1 L at 250ml/hr., then NS with 20meq K+ at 125ml/hr Will allow him to take his glucophage and glipizide as his blood glucose is approx. 200mg/dl. Will DC or start IV dextrose if pt. becomes hypoglycemic. IV reglan 5mg every 4 hours. Recheck troponin and lactic acid in 6 hours.
[2017-10-11] MEDS: Acetaminophen/HYDROcodone 325-10 MG Tab PO PRN (00:18)
[2017-10-11] MEDS: Metoclopramide 10 MG/2 ML SDV IVPUSH SCH ×3 (00:19→07:43)
[2017-10-11] MEDS: Sodium Chloride 0.9% 10 ML Syringe FLUSH PRN (00:21)
[2017-10-11 06:01] VITALS: BP 146/75
[2017-10-11] MEDS ORDERED: Sodium Chloride 0.9% 1,000 ML IV SCH (06:15)
[2017-10-11] MEDS ORDERED: Levothyroxine 125 MCG Tab PO SCH (07:00)
[2017-10-11] MEDS ORDERED: Tiotropium Inhaler 18 MCG Inhalation Powder Cap Kit of 5 INH SCH (07:00)
[2017-10-11] MEDS: Enoxaparin 40 MG/0.4 ML Syringe SUBCUT SCH (07:44)
[2017-10-11] MEDS: Nicotine 21 MG/24 Hr Patch TRDERM SCH (07:44)
[2017-10-11] MEDS ORDERED: Metoprolol Succinate 50 MG Tab.ER PO SCH (08:00)
[2017-10-11] MEDS ORDERED: Pantoprazole 40 MG Tab.CR PO SCH (08:00)
[2017-10-11] MEDS ORDERED: FLAXSEED OIL 1000 MG PO SCH (08:00)
[2017-10-11] MEDS ORDERED: Hydrocortisone 20 MG Tab PO SCH (08:00)
[2017-10-11] MEDS ORDERED: Famotidine 20 MG Tab PO SCH (08:00)
[2017-10-11] MEDS ORDERED: Aspirin 81 MG Tab.Chew PO SCH (08:00)
[2017-10-11] MEDS ORDERED: Lisinopril 20 MG Tab PO SCH (08:00)
[2017-10-11] MEDS ORDERED: amLODIPine 5 MG Tab PO SCH (08:00)
[2017-10-11] MEDS ORDERED: Albuterol 0.083% 2.5 MG/3 ML Neb Soln NEB PRN (08:19)
[2017-10-11] MEDS ORDERED: Ipratropium 0.02% 0.5 MG/2.5 ML Neb Soln NEB SCH (12:00)
--- NOTE | 2017-10-12 10:03 | DISCH ---
PRIMARY DISCHARGE DIAGNOSES: 1. Ileus. 2. Abdominal discomfort secondary to ileus. 3. Significant coronary artery disease history, ruled out for myocardial infarction with serial troponins. 4. Diabetes with hypoglycemia due to taking medications when not eating, mild, treated with D5. 5. Essential hypertension. 6. Panhypopituitarism, was cortisol dependent. 7. Chronic back pain on narcotics. 8. Situational anxiety. He rarely uses Ativan. 9. Obesity. 10.Smoking. 11.History of regular alcohol use. The patient denies any regular use currently. 12.Elevated LFTs, chronic and stable on discharge with AST 65, ALT 111. 13.Renal insufficiency with creatinine at 1.4. Creatinine is same as July. Past readings have been around 1 to 1.1 over the last 2 years, but he has been up to 1.5, so he has some underlying chronic kidney disease stage 3. 14.Chronic obstructive pulmonary disease, but stable without exacerbation. REASON FOR ADMISSION: On the date of admission, this 67-year-old with significant coronary disease came in with upper abdominal epigastric pain. He wanted to be checked out to make sure he was not having another heart attack. His troponin was negative. He had a normal lactic acid. He was not nauseated or vomiting. He had a small bowel movement that day, no blood. Denied any constipation. He received IV fluids, was kept n.p.o. X-rays were showing an ileus. His condition improved, so no CT was done. He was passing gas. He was tolerating his pills with Protonix. He had 2 bowel movements. He was ready to eat and did tolerate a clear liquid diet and was ready to be discharged home. His lowest blood sugar was only 79 during his stay and was 142 on discharge, so he will be resumed on his home diabetes medications. Blood sugars at home had been in the 160 range as [facility]. DISCHARGE PLANS AND INSTRUCTIONS: He will follow up with Dr. Leal in November as previously planned. [facility]. He will advance diet slowly with applesauce, soups, Jell-Os as discussed with him. He will keep his medications the same. He will continue on metformin, but we will monitor kidney function closely. He will continue to limit alcohol. He is recommended to stop smoking. He is recommended to take laxatives if he develops any constipation from pain pills. DISCHARGE EXAMINATION: Vital Signs: Temperature 97.8; pulse 73; blood pressure 146/75, previous 139/80; respiratory rate 18; O2 reported to be 91 on room air, but 100% on previous reading. General: He is in no acute distress. He is not short of breath. Heart: Regular rate and rhythm. S1, S2 without murmur. Lungs: Lung sounds are clear to auscultation bilaterally without crackles or wheezes. Abdomen: Obese, slightly distended, but soft. Positive bowel sounds throughout. It is just mildly tender, but he reports that is in the areas where he received the Lovenox shots. Extremities: Warm and dry. No edema. Mental Status: Alert orientated x3. He did receive Reglan during his stay, but is having no nausea, so Reglan was not prescribed on discharge. MKA: 10/11/2017 08:55:02 MODL: 10/12/2017 02:46:49 /[id number]
== END 2017-10-11 09:42 | disposition home or self-care (01) ==
LOC: VM.ED 12:40 → VM.MS 14:16
PROVIDERS: ADMIT Physician Assistant; ATTEND Physician Assistant
DX: K56.7 Ileus, unspecified (principal); I25.10 Atherosclerotic heart disease of native coronary artery without angina pectoris; E11.649 Type 2 diabetes mellitus with hypoglycemia without coma; I10 Essential (primary) hypertension; E23.0 Hypopituitarism; G89.29 Other chronic pain; M54.9 Dorsalgia, unspecified; F41.9 Anxiety disorder, unspecified; E66.9 Obesity, unspecified; J44.9 Chronic obstructive pulmonary disease, unspecified; K21.9 Gastro-esophageal reflux disease without esophagitis; E11.21 Type 2 diabetes mellitus with diabetic nephropathy; F32.9 Major depressive disorder, single episode, unspecified; Z91.040 Latex allergy status; Z88.1 Allergy status to other antibiotic agents; Z88.8 Allergy status to other drugs, medicaments and biological substances; Z79.82 Long term (current) use of aspirin; Z79.899 Other long term (current) drug therapy; Z79.84 Long term (current) use of oral hypoglycemic drugs; Z95.5 Presence of coronary angioplasty implant and graft; Z72.0 Tobacco use
CPT/HCPCS: 36415; 74022; 80053; 82150; 82962; 83605; 83690; 83735; 84100; 84484; 85025; 85027; 85610; 86140; 93005; 99285; A9270; J1650; J2765; J3480; J7030; J7050; J7120; 96361; 96372; 96374; 96376; 99220; G0378

== ENCOUNTER 2019-02-04 11:45 | Emergency (ER) | payer OTHER, MEDICARE ==
--- NOTE | 2019-02-04 12:08 | EDM.PDOC ---
ED HPI GENERAL MEDICAL PROBLEM - General Stated Complaint: CHEST PAINS Time Seen by Provider: 02/04/19 12:07 Source of Information: Reports: Patient - History of Present Illness INITIAL COMMENTS - FREE TEXT/NARRATIVE: Patient has not seen his primary doctor in a while. He did try to come go in today. He is having epigastric and chest pain. EKG was deemed negative. He did have the most success with the GI cocktail. I also gave him aspirin and morphine. I did do an EKG and chest x-ray. Blood work came back okay. The patient will try to see his primary by the end of the week. I do not believe that he is having a coronary per se. HIm and his were comfortable with this plan. He was invited back to come back if he has any further issues. He understood. He believes that he'll go to get into his primary by Monday. Onset: Today Quality: Reports: Ache, Dull Severity: Moderate Improves with: Reports: None Associated Symptoms: Reports: Chest Pain, Nausea/Vomiting Epigastric Pain Score (Numeric/FACES): 1 - Related Data Allergies Allergy/AdvReac Type Severity Reaction Status Date / Time latex Allergy Severe Rash Verified 02/04/19 15:11 azithromycin Allergy Other Verified 02/04/19 15:11 ezetimibe [From Zetia] Allergy Other Verified 02/04/19 15:11 fenofibrate Allergy Other Verified 02/04/19 15:11 gabapentin [From Neurontin] Allergy Other Verified 02/04/19 15:11 sertraline [From Zoloft] Allergy Other Verified 02/04/19 15:11 atorvastatin [From Lipitor] AdvReac Muscle Verified 02/04/19 15:11 Aches carbamazepine AdvReac Confusion Verified 02/04/19 15:11 Home Meds: Home Meds Hydrocodone/Acetaminophen [Hydrocodon-Acetaminophn 10-325] 1 tab PO TID PRN [History] LORazepam 0.5 mg PO TID PRN 05/28/16 [History] Tamsulosin HCl 0.8 mg PO BEDTIME 05/28/16 [History] Tiotropium [Spiriva Handihaler] 1 inh PO DAILY@1900 05/28/16 [History] metFORMIN HCl [Metformin HCl] 1,000 mg PO BID 08/27/16 [History] Famotidine [Pepcid] 20 mg PO DAILY 04/07/17 [History] Flaxseed Oil [Flaxseed] 1,000 mg PO DAILY 04/07/17 [History] Furosemide [Lasix] 20 mg PO DAILY PRN 04/07/17 [History] Nitroglycerin [Nitrostat] 0.4 mg SL Q5M PRN 04/07/17 [History] Pantoprazole Sodium [Protonix] 40 mg PO QAM 04/07/17 [History] [place]-3 Acid Ethyl Esters [Lovaza] 1 gm PO BIDMEALS 07/09/17 [History] Testosterone Cypionate [Depo-Testosterone] 300 mg IM Q21D 07/09/17 [History] Hydrocortisone 10 - 20 mg PO DAILY PRN 10/10/17 [History] Metoprolol Succinate [Toprol Xl] 100 mg PO DAILY 10/10/17 [History] Aspirin [Halfprin] 81 mg PO DAILY 10/11/17 [History] Albuterol [Ventolin HFA] 2 puff PO Q4H PRN 08/16/18 [History] Hydrocortisone [Cortef] 10 mg PO BEDTIME 08/16/18 [History] Hydrocortisone [Cortef] 20 mg PO DAILY 08/16/18 [History] Sildenafil Citrate [Sildenafil] 50 mg PO DAILY PRN 08/16/18 [History] Insulin Aspart [NovoLOG] 8 unit SQ ASDIRECTED 02/04/19 [History] Insulin Glargine,Hum.Rec.Anlog [Lantus Solostar] 55 units SQ DAILY 02/04/19 [ History] Levothyroxine 150 mcg PO ACBREAKFAST 02/04/19 [History] Lisinopril [Prinivil] 10 mg PO DAILY 02/04/19 [History] amLODIPine Besylate [Norvasc] 10 mg PO DAILY 02/04/19 [History] Past Medical History HEENT History: Reports: None, Other (See Below) Other HEENT History: astigmatism; myopia Cardiovascular History: Reports: Angina, CAD, High Cholesterol, Hypertension, MD , Stents Other Cardiovascular History: hx of 4 Stents; 2 MD's Respiratory History: Reports: COPD Gastrointestinal History: Reports: GERD Genitourinary History: Reports: Diabetic Nephropathy, Retention, Urinary, Other (See Below) Other Genitourinary History: erectile dysfunction Musculoskeletal History: Reports: Other (See Below) Other Musculoskeletal History: back pain Neurological History: Reports: Neuropathy, Diabetic Psychiatric History: Reports: Addiction, Anxiety, Depression, PTSD, Other (See Below) Other Psychiatric History: social phobia Endocrine/Metabolic History: Reports: Diabetes, Type II, Hypothyroidism Other Endocrine/Metabolic History: Panhypopituitarism; pituitary tumor Dermatologic History: Reports: Eczema, Other (See Below) Other Dermatologic History: 12/18 shingles - Infectious Disease History Infectious Disease History: Reports: C-Difficile - Past Surgical History HEENT Surgical History: Reports: Tonsillectomy, Other (See Below) Other HEENT Surgeries/Procedures: Open Mayra. Cardiovascular Surgical History: Reports: Coronary Artery Stent, Other (See Below) Other Cardiovascular Surgeries/Procedures: coronary angioplasty GI Surgical History: Reports: Cholecystectomy, Colonoscopy, Other (See Below) Other GI Surgeries/Procedures: upper endoscopy Male Surgical History: Reports: Vasectomy Endocrine Surgical History: Reports: Other (See Below) Other Endocrine Surgeries/Procedures: pituitary removed Musculoskeletal Surgical History: Reports: Other (See Below) Other Musculoskeletal Surgeries/Procedures:: lumbar spine fusion; fusion lumbar thoracic spine Social & Family History - Family History Family Medical History: Noncontributory Other Cardiac Family History: stroke, heart attack - Caffeine Use Caffeine Use: Reports: Coffee ED ROS GENERAL - Review of Systems Review Of Systems: ROS reveals no pertinent complaints other than HPI. ED EXAM, GENERAL - Physical Exam Exam: See Below Exam Limited By: No Limitations General Appearance: Alert, Mild Distress Throat/Mouth: Normal Inspection, Normal Lips, Normal Teeth, Normal Gums, Normal Oropharynx, Normal Voice, No Airway Compromise Head: Atraumatic, Normocephalic Neck: Normal Inspection, Supple, Non-Tender, Full Range of Motion Respiratory/Chest: No Respiratory Distress, Lungs Clear, Normal Breath Sounds, No Accessory Muscle Use, Chest Non-Tender Cardiovascular: Normal Peripheral Pulses, Regular Rate, Rhythm, No Edema, No Gallop, No JVD, No Murmur, No Rub GI/Abdominal: Normal Bowel Sounds, Soft Course - Vital Signs Last Recorded V/S: Last Vital Signs Temp 36.8 C 02/04/19 11:50 Pulse 89 02/04/19 12:13 Resp 18 02/04/19 12:13 BP 155/79 H 02/04/19 12:13 Pulse Ox 95 02/04/19 12:13 - Orders/Labs/Meds Orders: Active Orders 24 hr Category Date Time Status EKG 12 Lead [EKG Documentation Completion] [RC] STAT Care 02/04/19 12:13 Active Labs: Laboratory Tests 02/04/19 02/04/19 02/04/19 Range/Units 12:20 12:20 12:20 WBC 8.3 (4.0-10.0) x10^3/uL RBC 5.18 (4.5-6.0) x10^6/uL Hgb 16.0 D (14.0-18.0) g/dL Hct 49.0 (40.0-52.0) % MCV 94.6 H D (78.0-93.0) fL MCH 30.9 (26.0-32.0) pg MCHC 32.7 (32.0-36.0) g/dL RDW Coeff of Enrike 14.1 (10.0-15.0) % Plt Count 203 (130-400) x10^3/uL Neut % (Auto) 70.2 (50.0-80.0) % Lymph % (Auto) 19.1 L (25.0-50.0) % [place] % (Auto) 6.7 (2.0-11.0) % Eos % (Auto) 3.0 (0.0-4.0) % Baso % (Auto) 1.0 (0.2-1.2) % Sodium 138 (136-145) mmol/L Potassium 4.1 (3.5-5.1) mmol/L Chloride 99 (98-107) mmol/L Carbon Dioxide 28 (21-32) mmol/L Anion Gap 15.1 (10-20) mmol/L BUN 11 (7-18) mg/dL Creatinine 1.4 H (0.70-1.30) mg/dL Est Cr Clr Drug Dosing TNP Estimated GFR (MDRD) 50 Glucose 157 H (74-106) mg/dL Lactic Acid 1.4 (0.4-2.0) mmol/L Calcium 8.9 (8.5-10.1) mg/dL Corrected Calcium 9.06 (8.5-10.1) mg/dL Total Bilirubin 0.4 (0.2-1.0) mg/dL AST 27 (15-37) U/L ALT 49 (16-63) U/L Alkaline Phosphatase 106 (46-116) U/L Troponin I < 0.017 (<=0.056) ng/mL C-Reactive Protein 2.5 H (<=0.9) mg/dL Total Protein 8.6 H (6.4-8.2) g/dL Albumin 3.8 (3.4-5.0) g/dL Globulin 4.8 Albumin/Globulin Ratio 0.79 Meds: Medications Discontinued Medications Generic Name Dose Route Start Last Admin Trade Name Freq PRN Reason Stop Dose Admin Al Hydroxide/Mg Hydroxide 30 ml 02/04/19 12:16 02/04/19 12:53 Gi Cocktail PO 02/04/19 12:17 30 ml ONETIME ONE Administration Aspirin 324 mg 02/04/19 12:30 02/04/19 12:52 Aspirin PO 02/04/19 12:31 254 mg ONETIME ONE Administration Morphine Sulfate 1 mg 02/04/19 12:14 02/04/19 12:53 Morphine IVPUSH 02/04/19 12:15 1 mg ONETIME ONE Administration Departure - Departure Time of Disposition: 13:14 Disposition: Home, Self-Care 01 Condition: Good Clinical Impression: Chest pain Qualifiers: Chest pain type: unspecified Qualified Code(s): R07.9 - Chest pain, unspecified Instructions: Nonspecific Chest Pain, [id number] Referrals: Gale Leal, [Primary Care Provider] - Forms: ED Department Discharge Additional Instructions: Lab work was normal. See your doctor if she can by the end of the week. You received morphine and aspirin today. Also the GI cocktail did seem to help with your epigastric pain. EKG and cardiac enzymes were unremarkable. - My Orders Last 24 Hours: My Active Orders 02/04/19 12:13 EKG 12 Lead [EKG Documentation Completion] [RC] STAT - Assessment/Plan Last 24 Hours: My Active Orders 02/04/19 12:13 EKG 12 Lead [EKG Documentation Completion] [RC] STAT
[2019-02-04] MEDS ORDERED: Morphine 2 MG/ML Syringe IVPUSH ONE (12:14)
[2019-02-04] MEDS ORDERED: GI Cocktail Oral Solution 30 ML PO ONE (12:16)
[2019-02-04] MEDS ORDERED: Aspirin 81 MG Tab.Chew PO ONE (12:30)
--- NOTE | 2019-02-04 12:45 | CR ---
[id number] RAD/RAD Chest PA or AP 1V EXAM: RAD Chest PA or AP 1V INDICATION: SHORT OF BREATH. COMPARISON: August 2018. DISCUSSION: Cardiomediastinal silhouette is normal in size and contour. No infiltrate, effusion, pneumothorax, or edema. IMPRESSION: Negative examination of the chest. Hakan Huang MD 02/04/19 0574 Thank you for allowing us to participate in the care of your patient.
[2019-02-04 13:06] LABS: CHLORIDE,CL 99 mmol/L (98-107); SODIUM,NA 138 mmol/L (136-145)
[2019-02-04 13:07] LABS: ANION GAP 15.1 mmol/L (10-20)
[2019-02-04 15:26] VITALS: BP 155/79
== END 2019-02-04 13:35 | disposition home or self-care (01) ==
LOC: VM.ED 11:45
DX: R07.9 Chest pain, unspecified (principal); E78.00 Pure hypercholesterolemia, unspecified; I10 Essential (primary) hypertension; I25.2 Old myocardial infarction; Z95.5 Presence of coronary angioplasty implant and graft; J44.9 Chronic obstructive pulmonary disease, unspecified; K21.9 Gastro-esophageal reflux disease without esophagitis; E11.21 Type 2 diabetes mellitus with diabetic nephropathy; E11.40 Type 2 diabetes mellitus with diabetic neuropathy, unspecified; E03.9 Hypothyroidism, unspecified; Z91.040 Latex allergy status; Z88.1 Allergy status to other antibiotic agents; Z79.899 Other long term (current) drug therapy; Z79.4 Long term (current) use of insulin
CPT/HCPCS: 36415; 71045; 80053; 83605; 84484; 85025; 86140; 93005; 96374; 99284; A9270; J2270; 99283-GF

== ENCOUNTER 2019-11-22 20:01 | Inpatient (IN) | payer MEDICARE, OTHER ==
[2019-11-22] MEDS ORDERED: Furosemide 40 MG/4 ML VIAL IV ONE (20:15)
[2019-11-22] MEDS ORDERED: Sodium Chloride 0.9% 10 ML Syringe FLUSH PRN (20:15)
[2019-11-22] MEDS ORDERED: Aspirin 81 MG Tab.Chew PO ONE (20:19)
[2019-11-22] MEDS ORDERED: Albuterol/Ipratropium 3.0-0.5 MG/3 ML Neb Soln NEB ONE (20:24)
--- NOTE | 2019-11-22 20:30 | EDM.PDOC ---
ED HPI GENERAL MEDICAL PROBLEM - General Chief Complaint: General Stated Complaint: NOT FEELING WELL Time Seen by Provider: 11/22/19 20:15 Source of Information: Reports: Patient History Limitations: Reports: No Limitations - History of Present Illness INITIAL COMMENTS - FREE TEXT/NARRATIVE: Patient comes into the emergency department with complaints of chest pain, and shortness of breath. Patient states that the shortness of breath and chest pain started approximately 24 hours ago. The shortness of breath does get worse when lying flat or with exertion. He also states that has had an increase of abdominal pressure/discomfort as well along with chest pain at the same time. He states that it has been consistent ever since yesterday. Describes the pain as a fullness sensation. He states is been slowly getting worse throughout the day. He does have a history of COPD and states that he has been told that he has fluid overload. He denies any recent fevers, nausea, vomiting , or urinary retention. Also states that he has noticed that he had an increase in swelling in his lower extremities he does not have. Denies any other concerns or complaints and states that he has been relatively healthy. Onset: Gradual Quality: Reports: Other Severity: Severe Improves with: Reports: Rest, Other (sitting up right) Worsens with: Reports: Other (laying flat ), Movement Associated Symptoms: Reports: No Other Symptoms - Related Data Allergies Allergy/AdvReac Type Severity Reaction Status Date / Time latex Allergy Severe Rash Verified 02/04/19 15:11 azithromycin Allergy Other Verified 02/04/19 15:11 ezetimibe [From Zetia] Allergy Other Verified 02/04/19 15:11 fenofibrate Allergy Other Verified 02/04/19 15:11 gabapentin [From Neurontin] Allergy Other Verified 02/04/19 15:11 sertraline [From Zoloft] Allergy Other Verified 02/04/19 15:11 atorvastatin [From Lipitor] AdvReac Muscle Verified 02/04/19 15:11 Aches carbamazepine AdvReac Confusion Verified 02/04/19 15:11 Home Meds: Home Meds Hydrocodone/Acetaminophen [Hydrocodon-Acetaminophn 10-325] 1 tab PO TID PRN [History] LORazepam 0.5 mg PO TID PRN 05/28/16 [History] Tamsulosin HCl 0.8 mg PO BEDTIME 05/28/16 [History] Tiotropium [Spiriva Handihaler] 1 inh PO DAILY@1900 05/28/16 [History] metFORMIN HCl [Metformin HCl] 1,000 mg PO BID 05/28/16 [History] Famotidine [Pepcid] 20 mg PO DAILY 04/07/17 [History] Flaxseed Oil [Flaxseed] 1,000 mg PO DAILY 04/07/17 [History] Furosemide [Lasix] 20 mg PO DAILY PRN 04/07/17 [History] Nitroglycerin [Nitrostat] 0.4 mg SL Q5M PRN 04/07/17 [History] Pantoprazole Sodium [Protonix] 40 mg PO QAM 04/07/17 [History] [place]-3 Acid Ethyl Esters [Lovaza] 1 gm PO BIDMEALS 07/09/17 [History] Testosterone Cypionate [Depo-Testosterone] 300 mg IM Q21D 07/09/17 [History] Hydrocortisone 10 - 20 mg PO DAILY PRN 10/10/17 [History] Metoprolol Succinate [Toprol Xl] 100 mg PO DAILY 10/10/17 [History] Aspirin [Halfprin] 81 mg PO DAILY 10/11/17 [History] Albuterol [Ventolin HFA] 2 puff PO Q4H PRN 08/16/18 [History] Hydrocortisone [Cortef] 10 mg PO BEDTIME 08/16/18 [History] Hydrocortisone [Cortef] 20 mg PO DAILY 08/16/18 [History] Sildenafil Citrate 50 mg PO DAILY PRN 08/16/18 [History] Insulin Aspart [NovoLOG] 8 unit SQ ASDIRECTED 02/04/19 [History] Insulin Glargine,Hum.Rec.Anlog [Lantus Solostar] 55 units SQ DAILY 02/04/19 [ History] Levothyroxine 150 mcg PO ACBREAKFAST 02/04/19 [History] amLODIPine Besylate [Norvasc] 10 mg PO DAILY 02/04/19 [History] lisinopriL [Prinivil] 10 mg PO DAILY 02/04/19 [History] Past Medical History HEENT History: Reports: None, Other (See Below) Other HEENT History: astigmatism; myopia Cardiovascular History: Reports: Angina, CAD, High Cholesterol, Hypertension, CT , Stents Other Cardiovascular History: hx of 4 Stents; 2 CT's Respiratory History: Reports: COPD Gastrointestinal History: Reports: GERD Genitourinary History: Reports: Diabetic Nephropathy, Retention, Urinary, Other (See Below) Other Genitourinary History: erectile dysfunction Musculoskeletal History: Reports: Other (See Below) Other Musculoskeletal History: back pain Neurological History: Reports: Neuropathy, Diabetic Psychiatric History: Reports: Addiction, Anxiety, Depression, PTSD, Other (See Below) Other Psychiatric History: social phobia Endocrine/Metabolic History: Reports: Diabetes, Type II, Hypothyroidism Other Endocrine/Metabolic History: Panhypopituitarism; pituitary tumor Dermatologic History: Reports: Eczema, Other (See Below) Other Dermatologic History: 12/18 shingles - Infectious Disease History Infectious Disease History: Reports: C-Difficile - Past Surgical History HEENT Surgical History: Reports: Tonsillectomy, Other (See Below) Other HEENT Surgeries/Procedures: Open Mayra. Cardiovascular Surgical History: Reports: Coronary Artery Stent, Other (See Below) Other Cardiovascular Surgeries/Procedures: coronary angioplasty GI Surgical History: Reports: Cholecystectomy, Colonoscopy, Other (See Below) Other GI Surgeries/Procedures: upper endoscopy Male Surgical History: Reports: Vasectomy Endocrine Surgical History: Reports: Other (See Below) Other Endocrine Surgeries/Procedures: pituitary removed Musculoskeletal Surgical History: Reports: Other (See Below) Other Musculoskeletal Surgeries/Procedures:: lumbar spine fusion; fusion lumbar thoracic spine Social & Family History - Family History Family Medical History: Noncontributory Other Cardiac Family History: stroke, heart attack - Caffeine Use Caffeine Use: Reports: Coffee - Living Situation & Occupation Living situation: Reports: (2 children), with Spouse Occupation: Retired (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 He has a previous [employer] bit in the [employer] and does have PTSD.) ED ROS GENERAL - Review of Systems Review Of Systems: See Below Constitutional: Reports: Malaise, Weakness, Fatigue HEENT: Reports: No Symptoms Respiratory: Reports: Shortness of Breath, Cough Cardiovascular: Reports: Chest Pain, Dyspnea on Exertion, Edema Endocrine: Reports: Fatigue GI/Abdominal: Reports: Abdominal Pain, Decreased Appetite. Denies: Black Stool , Bloody Stool, Nausea, Stool Incontinence : Reports: No Symptoms Musculoskeletal: Reports: No Symptoms Skin: Reports: No Symptoms Neurological: Reports: No Symptoms Psychiatric: Reports: No Symptoms Hematologic/Lymphatic: Reports: No Symptoms Immunologic: Reports: No Symptoms ED EXAM, GENERAL - Physical Exam Exam: See Below Exam Limited By: No Limitations General Appearance: Alert, Mild Distress Eye Exam: Bilateral Eye: EOMI, PERRL Neck: Normal Inspection, Supple, Non-Tender Respiratory/Chest: Respiratory Distress, Decreased Breath Sounds, Crackles, Wheezing Cardiovascular: No JVD, No Murmur, No Rub, Tachycardia GI/Abdominal: Distended, Rebound, Abnormal Bowel Sounds Back Exam: Normal Inspection, Full Range of Motion Extremities: Normal Inspection Neurological: Alert, Oriented Psychiatric: Normal Affect, Normal Mood Skin Exam: Warm, Dry, Intact Course - Orders/Labs/Meds Orders: Active Orders 24 hr Category Date Time Status Admission Status [Patient Status] [ADT] Routine ADT 11/22/19 21:57 Ordered EKG Documentation Completion [RC] STAT Care 11/22/19 20:15 Active RT Aerosol Therapy [RC] ASDIRECTED Care 11/22/19 20:24 Active Sodium Chloride 0.9% [Saline Flush] Med 11/22/19 20:15 Active 10 ml FLUSH ASDIRECTED PRN Peripheral IV Insertion Adult [OM.PC] Stat Oth 11/22/19 20:14 Ordered Medication Orders Sodium Chloride (Saline Flush) 10 ml FLUSH ASDIRECTED PRN PRN Reason: Keep Vein Open Labs: Laboratory Tests 11/22/19 11/22/19 11/22/19 Range/Units 20:28 20:28 20:28 WBC 10.3 H (4.0-10.0) x10^3/uL RBC 4.88 (4.5-6.0) x10^6/uL Hgb 15.0 (14.0-18.0) g/dL Hct 44.5 (40.0-52.0) % MCV 91.2 D (78.0-93.0) fL MCH 30.7 (26.0-32.0) pg MCHC 33.7 (32.0-36.0) g/dL RDW Coeff of Enrike 14.9 (10.0-15.0) % Plt Count 213 (130-400) x10^3/uL Neut % (Auto) 60.9 (50.0-80.0) % Lymph % (Auto) 23.6 L (25.0-50.0) % [place] % (Auto) 10.0 (2.0-11.0) % Eos % (Auto) 4.8 H (0.0-4.0) % Baso % (Auto) 0.7 (0.2-1.2) % Sodium 139 (136-145) mmol/L Potassium 3.9 (3.5-5.1) mmol/L Chloride 100 (98-107) mmol/L Carbon Dioxide 27 (21-32) mmol/L Anion Gap 15.9 (10-20) mmol/L BUN 16 (7-18) mg/dL Creatinine 1.4 H (0.70-1.30) mg/dL Est Cr Clr Drug Dosing TNP Estimated GFR (MDRD) 50 Glucose 114 H (74-106) mg/dL Lactic Acid 1.4 (0.4-2.0) mmol/L Calcium 8.4 L (8.5-10.1) mg/dL Corrected Calcium 8.88 (8.5-10.1) mg/dL Total Bilirubin 0.5 (0.2-1.0) mg/dL AST 30 (15-37) U/L ALT 36 (16-63) U/L Alkaline Phosphatase 76 (46-116) U/L Creatine Kinase 218 (39-308) U/L Troponin I < 0.017 (<=0.056) ng/mL NT-Pro-B Natriuret Pep 235 H (<=125) pg/mL Total Protein 7.8 (6.4-8.2) g/dL Albumin 3.4 (3.4-5.0) g/dL Globulin 4.4 Albumin/Globulin Ratio 0.77 Meds: Medications Generic Name Dose Route Start Last Admin Trade Name Freq PRN Reason Stop Dose Admin Sodium Chloride 10 ml 11/22/19 20:15 Saline Flush FLUSH ASDIRECTED PRN Keep Vein Open Discontinued Medications Generic Name Dose Route Start Last Admin Trade Name Freq PRN Reason Stop Dose Admin Albuterol/Ipratropium 3 ml 11/22/19 20:24 Duoneb 3.0-0.5 Mg/3 Ml NEB 11/22/19 20:25 ONETIME ONE Aspirin 324 mg 11/22/19 20:19 Aspirin PO 11/22/19 20:20 ONETIME ONE Ceftriaxone Sodium 1 gm 11/22/19 20:52 Rocephin IVPUSH 11/22/19 20:53 ONETIME ONE Furosemide 40 mg 11/22/19 20:15 Lasix IV 11/22/19 20:16 ONETIME ONE Departure - Departure Time of Disposition: 22:00 Disposition: Admitted As Inpatient 66 Condition: Good Clinical Impression: Respiratory distress Pneumonia Qualifiers: Pneumonia type: due to unspecified organism Laterality: right Lung location: lower lobe of lung Qualified Code(s): J18.9 - Pneumonia, unspecified organism - Discharge Information *PRESCRIPTION DRUG MONITORING PROGRAM REVIEWED*: Not Applicable *COPY OF PRESCRIPTION DRUG MONITORING REPORT IN PATIENT KENDRICK: Not Applicable Referrals: Gale Leal DO [Primary Care Provider] - Sepsis Event Note - Focused Exam Date Exam was Performed: 11/22/19 Time Exam was Performed: 22:05 - Problem List Review Problem List Initiated/Reviewed/Updated: Yes - My Orders Last 24 Hours: My Active Orders 11/22/19 20:14 Peripheral IV Insertion Adult [OM.PC] Stat 11/22/19 20:15 EKG Documentation Completion [RC] STAT Sodium Chloride 0.9% [Saline Flush] 10 ml FLUSH ASDIRECTED PRN 11/22/19 20:24 RT Aerosol Therapy [RC] ASDIRECTED 11/22/19 21:57 Admission Status [Patient Status] [ADT] Routine - Assessment/Plan Last 24 Hours: My Active Orders 11/22/19 20:14 Peripheral IV Insertion Adult [OM.PC] Stat 11/22/19 20:15 EKG Documentation Completion [RC] STAT Sodium Chloride 0.9% [Saline Flush] 10 ml FLUSH ASDIRECTED PRN 11/22/19 20:24 RT Aerosol Therapy [RC] ASDIRECTED 11/22/19 21:57 Admission Status [Patient Status] [ADT] Routine Assessment:: 1. SOB while at rest 2. Chest pain 3. Pneumonia 4. Resp distress- needing O2 Plan: 1. Duo-neb, ASA 324mg chewable completed in the ER 2. Labs completed in the ER. Results reviewed with the patient 3. Chest xray completed 4. IV initiated in the emergency department 5. IV fluids provided 6. EKG completed in ER. 7. Rocephin 1gm given 8. Consultation completed with-Dr. Cates who will admit the patient to acute care 9. Oxygen 2L required to keep saturations above 92% 10. Lasix 40mg IV given in ER 11. Patient and nursing staff was updated regarding the plan of care 12. Patient and family are agreeable to the above plan of care 13. All questions and concerns were addressed with the patient and family prior to admit
--- NOTE | 2019-11-22 20:37 | CR ---
[id number] RAD/RAD Chest PA or AP 1V EXAM: RAD Chest PA or AP 1V INDICATION: SOB COMPARISON: February 04, 2019. DISCUSSION: Cardiomediastinal silhouette is stable in size and contour. Right perihilar pulmonary infiltrate. Pulmonary hyperinflation. No pneumothorax or pleural effusion. IMPRESSION: Right perihilar pulmonary infiltrate. Ollie Castelan DO 11/22/19 2036 Thank you for allowing us to participate in the care of your patient.
[2019-11-22] MEDS ORDERED: cefTRIAXone 1 GM Vial IVPUSH ONE (20:52)
[2019-11-22 21:03] LABS: CHLORIDE,CL 100 mmol/L (98-107); SODIUM,NA 139 mmol/L (136-145)
[2019-11-22 21:34] LABS: ANION GAP 15.9 mmol/L (10-20)
[2019-11-22] MEDS ORDERED: Furosemide 20 MG Tab PO PRN (22:35)
[2019-11-22] MEDS ORDERED: HYDROCORTISONE PO PRN (22:35)
[2019-11-22] MEDS ORDERED: Albuterol HFA 18 Gm Inhaler INH PRN (22:35)
[2019-11-22] MEDS ORDERED: Nitroglycerin 0.4 MG Tab.SL SL PRN (22:35)
[2019-11-22] MEDS ORDERED: SILDENAFIL CITRATE 50 MG PO PRN (22:35)
[2019-11-22] MEDS ORDERED: TESTOSTERONE CYPIONATE 300 MG IM SCH (22:45)
[2019-11-22] MEDS ORDERED: INSULIN ASPART 8 UNIT SQ SCH (22:45)
[2019-11-22] MEDS ORDERED: methylPREDNISolone Sodium Succinate 125 MG/2 ML SDV IVPUSH SCH (22:45)
[2019-11-22] MEDS ORDERED: Enoxaparin 40 MG/0.4 ML Syringe SUBCUT SCH (22:45)
[2019-11-22] MEDS ORDERED: Aluminum Hydroxide/Magnesium Hydroxide/Simethicone Susp 30 ML Cup PO PRN (22:45)
[2019-11-22] MEDS ORDERED: Acetaminophen/HYDROcodone 325-10 MG Tab PO PRN (23:02)
[2019-11-22] MEDS ORDERED: LORazepam 0.5 MG Tab PO PRN (23:15)
[2019-11-23] MEDS ORDERED: ALBUTEROL INH PRN (00:08)
--- NOTE | 2019-11-23 05:04 | HP ---
CHIEF COMPLAINT: Shortness of breath. HISTORY OF PRESENT ILLNESS: The patient is a 69-year-old male, who presented to the emergency room with complaints of chest pain and shortness of breath. He said it started about 24 hours ago to a few days ago. He says it is worse if he is lying flat or with exertion. He has had an increase of abdominal pain, discomfort as well. He says he has not thrown up. Bowels have been regular. No fever or chills. Does have a history of COPD, coronary artery disease, as well as alcohol use, alcoholic gastritis. He denies any urinary retention. He has had some increased swelling of his lower extremities. He does see Dr. Gale Leal, his thermodynamics engineer on a regular basis. He recently had been started on Lasix to use 20 mg daily as needed, but he has been taking it daily. When I asked if the patient had any recent procedures, he denied any; however, reviewing his chart, it was noted that he had had a recent phimosis reduction surgery in the clinic on 11/13/2019. The patient when last admitted to the hospital had some lower sodiums in 06/2019; however, sodiums have been normal. At this visit when the patient presented to the emergency room, he was given a DuoNeb, 4 baby aspirin, 40 mg of Lasix, and Rocephin. The patient was feeling better. It was noted that when he first arrived to the emergency room, his saturations were 88% on room air and so he needed supplemental oxygen to get up to 92%. In the clinic, he stated "saturations were always normal." When reviewing his clinic chart, his saturations have been 95% to 97%. The patient denied high fever. Says his weight has been about the same and his blood sugars have been well controlled. He does smoke a pack a day of cigarettes. He does drink about a 12-pack per week of alcohol. The patient's appetite has been okay. MEDICATIONS: The patient is currently on Lamisil 1% cream daily; hydrocortisone 2.5% cream b.i.d.; hydrocodone/acetaminophen 10/325 mg 1 to 2 pills by mouth 3 times a day as needed for moderate pain; furosemide 20 mg 1 pill daily as needed for fluid retention, started on 10/03/2019; Lantus 60 units subcu daily; amlodipine 10 mg 1 pill daily; Lidoderm 5% patch apply 1 time per day, not certain if he is currently using this; lisinopril 10 mg 1 pill daily; and testosterone injection, he gets 1.5 mL which is 300 mg IM every 3 weeks. He has vitamin B12, 1 mL IM every 6 weeks; levothyroxine 150 mcg 1 pill daily; Cortef 10 mg 2 pills every morning and 1 pill at 5:00 p.m., may take another 1 to 2 tablets as needed for acute illness; metoprolol XL 200 mg 1 pill daily; Flexeril 10 mg 1 pill 3 times a day as needed for muscle spasms; Lorazepam 0.5 mg 1 pill 3 times a day as needed for anxiety; Protonix 40 mg 1 pill daily; albuterol 2 puffs q.4 hours p.r.n. shortness of breath or wheezing; flaxseed 1000 mg 1 pill daily; metformin 1000 mg 1 pill twice a day; [place]-3, Lovaza/[place] 1 pill twice a day; Viagra 50 mg 1 pill daily as needed; tamsulosin 0.4 mg 2 capsules by mouth once a day; Spiriva 1 capsule daily, not certain if he is currently on; Pepcid 20 mg 1 pill daily; aspirin 81 mg 1 pill daily; and nitroglycerin 0.4 mg sublingual q.4 hours x5 p.r.n. ALLERGIES: The patient is allergic to latex, causes a rash; azithromycin causes bad dreams; carbamazepine causes confusion; Lipitor causes myalgias; Neurontin, had nightmares and did not help; ezetimibe caused elevated CK; Zoloft, his head felt funny; and fenofibrate causes myalgias. PAST MEDICAL HISTORY: The patient has had anxiety and depression. He had been on Zoloft in the past as well as Wellbutrin, Effexor, Cymbalta, trial of Prozac and Xanax, uses very infrequently, now he has Ativan. He had C. difficile diarrhea in 04/2012. Coronary artery disease with mild 3-vessel coronary artery disease in 2008. He had a RCA stent in 2004 with angiogram, LAD and circumflex; no flow-limiting lesions. Inferior STEMI in 2004, given TNK-tPA and transported to [place]. Right coronary was stented in 2 locations. Stress echo in 2006 showed inferior wall hypokinesis, inferior STEMI status post a successful PCI of proximal RCA on 09/24/2013. Angiogram in 05/2016 for atypical chest pain showed patent stents were found. He has had hypertension and COPD. PFTs in 2012 showed 15% reversibility. Symbicort was started. He has type 2 diabetes mellitus, previously diet controlled, then Victoza added in 2017 and Ozempic in 2018, had stomach problems, Tresiba added in 2019. He has had hypertension, gastroesophageal reflux disease, hyperlipidemia, and hypothyroidism secondary. He has had painful diabetic neuropathy, Neurontin not successful. He has had pain contract management signed for opioid to Dr. Gale Leal, most recently updated on 06/06/2019. He has had a pituitary tumor. He has had PTSD. He has had chronic low back pain. He is status post lumbar surgery, L3-L4 TLIF with Dr. Menendez on 09/30/2014, and he has had a previous L4-L5 TLIF. He smokes, so he has had social phobia. He has had statin intolerance. He has had urinary retention. 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 He has had obesity and nicotine dependence. He has had left knee pain, hyperlipidemia, erectile dysfunction, Enterococcus UTI in the past, and elevated LFTs in 10/2012. He has had normal SPEP. Ferritin had been up to 450. He has had diabetic foot ulcers in 03/2018. He has had contact dermatitis with eczema, chronic back pain, and chronic alcohol use. Had acute osteomyelitis on the left toe. PAST SURGICAL HISTORY: He has had a stent placed in 2002, total of 4 stents x2 procedures. He has had lumbar surgery on 03/05/2013, L4-S1. He has had lumbar/thoracic fusion on 09/30/2014, L3-L4. He has had colonoscopy on 02/01/2016. He has had upper endoscopy on 02/01/2016. He has had a colonoscopy on 08/15/2016. He has had incision and debridement of left foot with nonviable bone on 04/12/2018. 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 He has had a TURP, laser assisted on 09/06/2018. He has had pituitary surgery x2, cholecystectomy, colonoscopy, coronary angioplasty, and gastroscopy. He has had radiation. No teeth, dentures do not fit. He has had tonsillectomy and vasectomy. He had phimosis surgery on 11/13/2019. FAMILY MEDICAL HISTORY: Mother has had breast cancer and hypertension. Maternal grandmother has had diabetes. SOCIAL HISTORY: He is retired. He previously had worked at [employer]. He had been in , had PTSD. He smokes a pack a day of cigarettes and drinks a 12-pack of beer a week. Does have some children. REVIEW OF SYSTEMS: His weight has been stable. No fever. No headaches. Does have chronic back pain. Does have bloating fullness. Does have cough and shortness of breath. Does have pain in his back. Bowels have been regular. No burning with urination. Does have some swelling on his feet. Denies any open skin sores. PHYSICAL EXAMINATION: Vital Signs: Showed that his blood pressure was 139/71, heart rate 92, respirations 20, saturations 93% on 2 L, and temperature 99.3. Skin: Somewhat monique, flushed throughout his body. He has bronzing of his lower extremities bilaterally. HEENT: His conjunctivae are injected bilaterally. Pupils are equal and reactive to light. Tympanic membranes are normal bilaterally. Pharynx is moist, edentulous, no injection. Neck: No anterior cervical lymphadenopathy. No thyromegaly. Heart: Regular rate and rhythm without murmurs or bruits. Lungs: Reveal some fine inspiratory wheezes bilaterally with crackles. He is able to talk. He is wearing oxygen currently. Abdomen: Obese, soft, nontender. No hepatosplenomegaly, but difficult to feel through his tense abdomen. Genital: Exam deferred. Extremities: Lower extremities have poor hair growth. He has some induration of lower extremities. Neurologic: He is alert x3. Moves all extremities symmetric. Psychiatric: Psych mcdonald mood appears appropriate. He is somewhat quiet. LABORATORY DATA: Shows his white blood cell count 10.3, hemoglobin 15.0, platelets 213 with 60.9 segs, lymphs 23, monos 10. Sodium 139, potassium 3.9, creatinine 1.4, GFR 15, glucose 114, lactic acid 1.4, calcium 8.4, total bilirubin 0.5, AST 30, ALT 36, alkaline phosphatase 76. CK 213, troponin less than 0.017. ProBNP slightly elevated at 235, normal for [facility] is 125 or less. Total protein 7.4, albumin 3.4. EKG shows normal sinus rhythm, left atrial enlargement and possible inferior infarct, not acute. Chest x-ray was read, which shows right perihilar pulmonary infiltrate. CARE IN THE EMERGENCY ROOM: The patient did receive Lasix 40 mg IV, Rocephin 1 g IM, DuoNeb, and 4 baby aspirin. The patient improved symptom mcdonald. His O2 saturations improved to 93%. IMPRESSION: 1. Pneumonia on the right lung. 2. Exacerbation of chronic obstructive pulmonary disease. 3. Hypoxemia related to pneumonia on the right lung and exacerbation of chronic obstructive pulmonary disease. 4. Dyspepsia, multifactorial, known history of alcoholic gastritis. 5. Alcohol use. 6. Tobacco use. 7. Panhypopituitarism. 8. Hypertension. 9. Obesity. 10.Type 2 diabetes mellitus. 11.Hypothyroidism secondary to pituitary tumor. 12.Posttraumatic stress disorder. 13.Chronic back pain. PLAN: The patient will be admitted to acute care, code level 1 status. He will be continued on Rocephin. We will place him on DuoNebs. We will give him some IV Solu-Medrol. We will watch his blood sugar supported with sliding scale insulin. May need to increase his oral Lasix. We will give some Mylanta for heartburn. The patient will be placed on nicotine patch to help with smoking cessation. He will be placed on DuoNebs to help with respiratory function. The patient's blood sugars will be monitored. Anticipate stay to be a few days to hopefully improve his oxygenation so he will not require oxygen use. We will check serial troponins on the patient. The patient's is present and does understand. GM11/22/2019 23:38:48 MODL: 11/23/2019 04:56:44 /[id number]
[2019-11-23] MEDS ORDERED: Levothyroxine 150 MCG Tab PO SCH (07:00)
[2019-11-23] MEDS: Insulin Lispro 100 Unit/ML 3 ML KwikPen SUBCUT SCH ×2 (07:33→11:58)
[2019-11-23] MEDS ORDERED: Glycopyrrolate 15.6 MCG Cap.W.Dev Kit of 6 IH SCH (08:00)
[2019-11-23] MEDS ORDERED: Pantoprazole 40 MG Tab.CR PO SCH (08:00)
[2019-11-23] MEDS ORDERED: Aspirin 81 MG Tab.EC PO SCH (08:00)
[2019-11-23] MEDS ORDERED: Albuterol/Ipratropium 3.0-0.5 MG/3 ML Neb Soln NEB SCH ×2 (08:00→11:00)
[2019-11-23] MEDS ORDERED: Insulin Glarg,Human.Rec.Analog 100 Unit/ML SUBCUT SCH (08:00)
[2019-11-23] MEDS ORDERED: metFORMIN 500 MG Tab PO SCH (08:00)
[2019-11-23] MEDS ORDERED: Famotidine 20 MG Tab PO SCH (08:00)
[2019-11-23] MEDS ORDERED: Nicotine 21 MG/24 Hr Patch TRDERM SCH (08:00)
[2019-11-23] MEDS ORDERED: Fish Oil/Omega-3 Fatty Acids 1 Gm Cap PO SCH (08:00)
[2019-11-23] MEDS ORDERED: amLODIPine 10 MG Tab PO SCH (08:00)
[2019-11-23] MEDS ORDERED: FLAXSEED OIL 1000 MG PO SCH (08:00)
[2019-11-23] MEDS ORDERED: Lisinopril 10 MG Tab PO SCH (08:00)
[2019-11-23] MEDS ORDERED: Metoprolol Succinate 50 MG Tab.ER PO SCH (08:00)
[2019-11-23] MEDS ORDERED: Hydrocortisone 20 MG Tab PO SCH (08:00)
[2019-11-23 08:17] LABS: CHLORIDE,CL 99 mmol/L (98-107); SODIUM,NA 138 mmol/L (136-145)
[2019-11-23 08:24] LABS: ANION GAP 13.1 mmol/L (10-20)
[2019-11-23] MEDS ORDERED: Cefuroxime 250 MG Tab PO SCH (08:30)
[2019-11-23 09:34] VITALS: BP 153/81; PULSE 98
--- NOTE | 2019-11-23 10:04 | PN ---
Progress Note for COREY ROWE Date: 11/23/2019 Room #: VM.214 SUBJECTIVE: The patient is feeling much better. He wants to go home. He refused Lovenox last night. He is not coughing or short of breath. The patient does not care for his hospital bed. The patient did diurese quite a bit last evening, which I feel has probably helped him the most. His telemetry has not showed any concerning changes. OBJECTIVE: Vital Signs: His weight is 112 kg this morning. Pulse is 94, blood pressure is 146/75, saturations are 93% on 1 L. General: The patient is less flushed today. He is much more moving around. Lungs: Clear to auscultation. Heart: Regular rate. Abdomen: Soft. Extremities: Lower extremities have less edema. He moves all extremities symmetric. LABORATORY DATA: His lab shows his white blood cell count has improved to 7.3, hemoglobin 15.2. His INR is 1.0. Sodium was 138, potassium 4.1, creatinine 1.5, GFR 46. Glucose had gone high at 228. Magnesium was normal at 1.8. LFTs normal. Troponin, serial check stayed normal at less than 0.017. CRP was slightly elevated at 2.7. Amylase was normal at 33, lipase was normal at 87. IMPRESSION: 1. Right pneumonia. 2. Hypoxemia related to pneumonia. 3. Chronic obstructive pulmonary disease exacerbation. 4. Type 2 diabetes mellitus. 5. Panhypopituitarism. 6. Coronary artery disease. PLAN: I need to have the patient be up ambulating without oxygen to make certain he is safe to go home. If he can do that this morning, we will allow him to go home, and we will have him on oral prednisone 20 mg daily for 5 days. He can be on Ceftin 500 mg twice a day for 7 days. He can be on his Spiriva inhaler daily as well as his albuterol inhaler as needed. We would have him follow up with Dr. Gale Leal in a week's time. If he is not able to get by without oxygen, he would need to be set up with home oxygen. I do not feel he needs to continue the nebulizers and we can just switch to the inhaler form of medication for him. GM11/23/2019 08:48:38 MODL: 11/23/2019 09:46:09 /[id number]
--- NOTE | 2019-11-23 11:42 | CR ---
[id number] RAD/RAD Chest PA And Lateral EXAM: RAD Chest PA And Lateral INDICATION: RIGHT PNEUMONIA FOLLOW-UP. COMPARISON: November 22, 2019. DISCUSSION: Cardiomediastinal silhouette is stable in size and contour. Right perihilar pulmonary infiltrate. Pulmonary hyperinflation. No pneumothorax or pleural effusion. IMPRESSION: Stable chest with right perihilar pulmonary infiltrate. Ollie Castelan DO 11/23/19 1141 Thank you for allowing us to participate in the care of your patient.
--- NOTE | 2019-11-23 14:05 | DISCH ---
PRIMARY DIAGNOSES: 1. Right perihilar pneumonia. 2. Hypoxemia related to pneumonia. 3. Exacerbation of chronic obstructive pulmonary disease. 4. Acute congestive heart failure. 5. History of coronary artery disease. 6. Type 2 diabetes mellitus. 7. Panhypopituitarism. 8. Nicotine habituation. 9. Dyspepsia. 10.Hypertension. 11.Obesity. 12.Hypothyroidism. 13.Posttraumatic stress disorder. 14.Chronic back pain. SUMMARY OF HISTORY AND PHYSICAL: The patient is a 69-year-old male who presented to the emergency room. He was feeling short of breath and full within the past 24 hours. He has had more fullness in the upper abdomen. He denied throwing up. Bowels have been regular. No fever or chills. Had been having a cough. Does have a history of COPD, however, use of his inhalers is somewhat marginal. He still continues to smoke. He also has had a previous history of coronary artery disease with stenting. Recently, when was seen by Dr. Gale Leal in October, he was started on Lasix 20 mg to take as needed, but he has been taking it daily. It is unclear as to how he has been taking his inhalers as he seems to have some discrepancies about this. When he was seen in the emergency room by a nurse practitioner, his saturations were down to 88% on room air and they did not improve. He needed to have a DuoNeb, was given 4 baby aspirin including a Lasix and Rocephin. His oxygen saturations were able to go up to 92%. "In the clinic, his saturations were normal." The patient comments he smokes a pack of cigarettes a day, he and drinks about 12-pack of alcohol a week. The patient's appetite has been good. Physical examination on admission showed that his blood pressure was 139/71, heart rate 92, respirations 20, saturations 93 on 2 L, temperature 99.3. His lungs had some inspiratory wheezes on bases bilaterally. Chest x-ray did show infiltrate. His white blood cell count 10.3, hemoglobin 15.0, platelets 213 with 60.9 segs, lymphs 23, monos 10. Sodium 139, potassium 3.9, creatinine 1.4, GFR 15, glucose 114, lactic acid 1.4. LFTs normal. CK 213. Troponin less than 0.017. ProBNP slightly elevated at 235. EKG showed normal sinus rhythm with left atrial enlargement, possible inferior infarct. SUMMARY OF HOSPITAL COURSE: The patient was placed on acute care, given DuoNeb treatments. He had received the 1 dose of Lasix, which did cause a 2.5 kg diuresis. He was noted to be much more comfortable by the next morning. He was eager for discharge home. He had refused Lovenox administration. He had been given a Habitrol patch to help with smoking cessation. Followup chest x-ray still showed evidence of right perihilar pneumonia. His lab laboratory data on the recheck shows white blood cell count had improved to 7.3, hemoglobin 15.2. INR was checked, it was 1.0; pro time 11.7. Sodium was 138, potassium 4.1, creatinine 1.5 which was stable. GFR 46. Glucose had gone high because he was also given IV Solu-Medrol to help with respiratory status. Magnesium was checked, it was normal at 1.8. Serial troponin was normal, less than 0.017. CRP was slightly elevated at 2.7. Amylase and lipase were checked, and they were normal. The patient did receive some Mylanta because of heartburn. The patient was able to be up ambulating around without need for supplemental oxygen, and he was eager for discharge home. So therefore it was felt to be safe to send him home. Also note, the patient did not comment that he had undergone a phimosis procedure on 11/13/2019 prior to hospitalization. MEDICATIONS AT DISCHARGE: Flomax 0.4 mg 2 pills at bedtime; lorazepam 0.5 mg 1 pill 3 times a day as needed for anxiety; hydrocodone-acetaminophen 10/325 one pill 3 times a day as needed; Spiriva 1 puff daily; metformin 1000 mg b.i.d.; Protonix 40 mg 1 pill in the morning; nitroglycerin 0.4 sublingual every 5 minutes x3 p.r.n.; Lasix 20 mg daily as needed (however, he can still take it daily, did not increase the dose of this); flaxseed 1000 mg daily; Pepcid 20 mg 1 pill daily; Depo-testosterone, it is 300 mg IM every 21 days; Lovaza 1 g b.i.d.; metoprolol succinate 100 mg 1 pill daily; hydrocortisone 10 to 20 mg p.r.n. steroid crisis or infections; aspirin 81 mg 1 pill daily; albuterol 2 puffs q.4 hours p.r.n.; hydrocortisone 10 mg 1 pill at bedtime, 20 mg in the morning; Viagra 20 mg, he takes 2-1/2 pills daily p.r.n.?; insulin 8 units subcu before meals; amlodipine 10 mg 1 pill daily; lisinopril 10 mg 1 pill daily; levothyroxine 150 mcg 1 pill in the morning; Lantus 60 units subcu daily. He will be placed on Ceftin 500 mg b.i.d. for 7 days, and he will be was placed on prednisone 20 mg daily for 5 days. The patient was encouraged to stop smoking. The patient is to follow up with Dr. Gale Leal in a week's time. His code level status at the time of discharge is full code. GM11/23/2019 11:54:19 MODL: 11/23/2019 13:59:23 /[id number]
[2019-11-23] MEDS ORDERED: cefTRIAXone 1 GM Vial IVPUSH SCH (20:00)
[2019-11-23] MEDS ORDERED: Tamsulosin 0.4 MG Cap.ER PO SCH (20:00)
[2019-11-24] MEDS ORDERED: predniSONE 20 MG Tab PO SCH (08:00)
== END 2019-11-23 12:10 | disposition home or self-care (01) | DRG 194 ==
LOC: VM.ED 20:01 → UNDOADMIN 21:57 → VM.MS 21:57 → UNDODISIN 11-23 12:10
PROVIDERS: ADMIT Family Medicine; ATTEND Internal Medicine
DX: J18.9 Pneumonia, unspecified organism (principal); I25.10 Atherosclerotic heart disease of native coronary artery without angina pectoris; I10 Essential (primary) hypertension; J44.0 Chronic obstructive pulmonary disease with (acute) lower respiratory infection; M86.8X7 Other osteomyelitis, ankle and foot; E78.00 Pure hypercholesterolemia, unspecified; J44.9 Chronic obstructive pulmonary disease, unspecified; J44.1 Chronic obstructive pulmonary disease with (acute) exacerbation; E11.21 Type 2 diabetes mellitus with diabetic nephropathy; E23.0 Hypopituitarism; F32.9 Major depressive disorder, single episode, unspecified; I25.110 Atherosclerotic heart disease of native coronary artery with unstable angina pectoris; R33.9 Retention of urine, unspecified; I11.0 Hypertensive heart disease with heart failure; R10.13 Epigastric pain; I50.9 Heart failure, unspecified; F41.9 Anxiety disorder, unspecified; F17.210 Nicotine dependence, cigarettes, uncomplicated; K21.9 Gastro-esophageal reflux disease without esophagitis; E78.5 Hyperlipidemia, unspecified; E03.9 Hypothyroidism, unspecified; Z79.890 Hormone replacement therapy; E11.40 Type 2 diabetes mellitus with diabetic neuropathy, unspecified; Z79.52 Long term (current) use of systemic steroids; M54.5 Low back pain; G89.29 Other chronic pain; E66.9 Obesity, unspecified; Z90.49 Acquired absence of other specified parts of digestive tract; Z95.818 Presence of other cardiac implants and grafts; Z95.5 Presence of coronary angioplasty implant and graft; Z90.89 Acquired absence of other organs; Z98.52 Vasectomy status; Z79.4 Long term (current) use of insulin; Z79.899 Other long term (current) drug therapy; Z79.51 Long term (current) use of inhaled steroids; Z79.82 Long term (current) use of aspirin; Z91.040 Latex allergy status; Z88.1 Allergy status to other antibiotic agents; Z88.8 Allergy status to other drugs, medicaments and biological substances; I25.2 Old myocardial infarction; Z71.6 Tobacco abuse counseling; Z99.81 Dependence on supplemental oxygen
CPT/HCPCS: 36415; 71045; 80053; 82550; 83605; 83880; 84484; 85025; 93005 ×2; 94640; A9270; J0696; J1940; 71046; 82150; 82962; 82977; 83690; 83735; 85027; 85610; 86140; 87040; 87070; 87077; 87186; 87205; 94760; 96374; 96375; 99285-25; J1815-GY; J2930; J7620-GY

== ENCOUNTER 2019-12-08 16:52 | Emergency (ER) | payer MEDICARE, OTHER ==
--- NOTE | 2019-12-08 17:14 | EDM.PDOC ---
ED HPI GENERAL MEDICAL PROBLEM - General Chief Complaint: Respiratory Problem Stated Complaint: ER VISIT Time Seen by Provider: 12/08/19 17:00 Source of Information: Reports: Patient History Limitations: Reports: No Limitations - History of Present Illness INITIAL COMMENTS - FREE TEXT/NARRATIVE: Patient presents to ER with complaints of increased shortness of breath and anxiety. He states he was admitted on 11-21-2019 for pneumonia. He was discharged home the next day on a 5 day course of antibiotics. Had been given a dose of IV Lasix and did diuresis 5#. Was seen by his routine doctor on Monday and they increased his Lasix to 40 mg per day and he has been taking that as advised. Using his inhalers. He relates that he starts to feel short of breath and then gets very anxious and worried. Does continue to have edema but states weights are stable. Onset: Gradual Duration: Day(s): Location: Reports: Chest Severity: Mild Improves with: Reports: Rest Worsens with: Reports: Movement Associated Symptoms: Reports: Cough, Malaise, Shortness of Breath. Denies: Confusion, Chest Pain, Fever/Chills, Loss of Appetite, Nausea/Vomiting - Related Data Allergies Allergy/AdvReac Type Severity Reaction Status Date / Time latex Allergy Severe Rash Verified 12/08/19 17:41 azithromycin Allergy Other Verified 12/08/19 17:41 ezetimibe [From Zetia] Allergy Other Verified 12/08/19 17:41 fenofibrate Allergy Other Verified 12/08/19 17:41 gabapentin [From Neurontin] Allergy Other Verified 12/08/19 17:41 sertraline [From Zoloft] Allergy Other Verified 12/08/19 17:41 atorvastatin [From Lipitor] AdvReac Muscle Verified 12/08/19 17:41 Aches carbamazepine AdvReac Confusion Verified 12/08/19 17:41 Home Meds: Home Meds Hydrocodone/Acetaminophen [Hydrocodon-Acetaminophn 10-325] 1 tab PO TID PRN [History] LORazepam 0.5 mg PO TID PRN 05/28/16 [History] Tamsulosin HCl 0.8 mg PO BEDTIME 05/28/16 [History] Tiotropium [Spiriva Handihaler] 1 inh PO DAILY@1900 05/28/16 [History] metFORMIN HCl [Metformin HCl] 1,000 mg PO BID 05/28/16 [History] Famotidine [Pepcid] 20 mg PO DAILY 04/07/17 [History] Flaxseed Oil [Flaxseed] 1,000 mg PO DAILY 04/07/17 [History] Furosemide [Lasix] 40 mg PO DAILY 04/07/17 [History] Nitroglycerin [Nitrostat] 0.4 mg SL Q5M PRN 04/07/17 [History] Pantoprazole Sodium [Protonix] 40 mg PO QAM 04/07/17 [History] Everett-3 Acid Ethyl Esters [Lovaza] 1 gm PO BIDMEALS 07/09/17 [History] Testosterone Cypionate [Depo-Testosterone] 300 mg IM Q21D 07/09/17 [History] Hydrocortisone 10 - 20 mg PO DAILY PRN 10/10/17 [History] Metoprolol Succinate [Toprol Xl] 100 mg PO DAILY 10/10/17 [History] Aspirin [Halfprin] 81 mg PO DAILY 10/11/17 [History] Albuterol [Ventolin HFA] 2 puff PO Q4H PRN 08/16/18 [History] Hydrocortisone [Cortef] 10 mg PO BEDTIME 08/16/18 [History] Hydrocortisone [Cortef] 20 mg PO DAILY 08/16/18 [History] Sildenafil Citrate 50 mg PO DAILY PRN 08/16/18 [History] Insulin Aspart [NovoLOG] 8 unit SQ ASDIRECTED 02/04/19 [History] Insulin Glargine,Hum.Rec.Anlog [Lantus Solostar] 60 units SQ DAILY 02/04/19 [ History] Levothyroxine 150 mcg PO ACBREAKFAST 02/04/19 [History] amLODIPine Besylate [Norvasc] 10 mg PO DAILY 02/04/19 [History] lisinopriL [Prinivil] 10 mg PO DAILY 02/04/19 [History] Cefuroxime [Ceftin] 500 mg PO BID 7 Days #14 tablet 11/23/19 [Rx] predniSONE 20 mg PO WITHBREAKFAST 5 Days #5 tablet 11/23/19 [Rx] Past Medical History HEENT History: Reports: None, Other (See Below) Other HEENT History: astigmatism; myopia Cardiovascular History: Reports: Angina, CAD, High Cholesterol, Hypertension, [place] , Stents Other Cardiovascular History: hx of 4 Stents; 2 WA's Respiratory History: Reports: COPD Gastrointestinal History: Reports: GERD Genitourinary History: Reports: Diabetic Nephropathy, Retention, Urinary, Other (See Below) Other Genitourinary History: erectile dysfunction Musculoskeletal History: Reports: Other (See Below) Other Musculoskeletal History: back pain Neurological History: Reports: Neuropathy, Diabetic Psychiatric History: Reports: Addiction, Anxiety, Depression, PTSD, Other (See Below) Other Psychiatric History: social phobia Endocrine/Metabolic History: Reports: Diabetes, Type II, Hypothyroidism Other Endocrine/Metabolic History: Panhypopituitarism; pituitary tumor Dermatologic History: Reports: Eczema, Other (See Below) Other Dermatologic History: 12/18 shingles - Infectious Disease History Infectious Disease History: Reports: C-Difficile - Past Surgical History HEENT Surgical History: Reports: Tonsillectomy, Other (See Below) Other HEENT Surgeries/Procedures: Open Mayra. Cardiovascular Surgical History: Reports: Coronary Artery Stent, Other (See Below) Other Cardiovascular Surgeries/Procedures: coronary angioplasty GI Surgical History: Reports: Cholecystectomy, Colonoscopy, Other (See Below) Other GI Surgeries/Procedures: upper endoscopy Male Surgical History: Reports: Vasectomy Endocrine Surgical History: Reports: Other (See Below) Other Endocrine Surgeries/Procedures: pituitary removed Musculoskeletal Surgical History: Reports: Other (See Below) Other Musculoskeletal Surgeries/Procedures:: lumbar spine fusion; fusion lumbar thoracic spine Social & Family History - Family History Family Medical History: Noncontributory Other Cardiac Family History: stroke, heart attack - Tobacco Use Smoking Status *Q: Current Every Day Smoker - Caffeine Use Caffeine Use: Reports: Coffee - Living Situation & Occupation Living situation: Reports: (2 children), with Spouse 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 He has a previous Ulises bit in the [employer] and does have PTSD.) ED ROS GENERAL - Review of Systems Review Of Systems: See Below Constitutional: Reports: Chills, Malaise, Weakness, Fatigue, Decreased Appetite. Denies: Fever HEENT: Reports: Vertigo. Denies: Ear Pain, Sinus Problem, Throat Pain Respiratory: Reports: Shortness of Breath, Wheezing, Cough Cardiovascular: Reports: Edema. Denies: Chest Pain, Lightheadedness Endocrine: Reports: Fatigue GI/Abdominal: Denies: Abdominal Pain, Nausea, Vomiting : Reports: No Symptoms Musculoskeletal: Reports: No Symptoms Skin: Reports: No Symptoms Neurological: Reports: No Symptoms ED EXAM, GENERAL - Physical Exam Exam: See Below Exam Limited By: No Limitations General Appearance: Alert, WD/WN, No Apparent Distress Ears: Normal External Exam, Normal TMs Nose: Normal Inspection, Normal Mucosa, No Blood Throat/Mouth: Normal Inspection, Normal Oropharynx Head: Normocephalic Neck: Normal Inspection, Supple, Non-Tender Respiratory/Chest: No Respiratory Distress, Decreased Breath Sounds Cardiovascular: Regular Rate, Rhythm, Tachycardia GI/Abdominal: Normal Bowel Sounds, Soft, Non-Tender Extremities: Pedal Edema (2+ LLE, 1+ RLE) Neurological: Alert, Oriented Skin Exam: Warm, Dry Course - Vital Signs Last Recorded V/S: Last Vital Signs Temp 98.7 F 12/08/19 17:00 Pulse 87 12/08/19 17:00 Resp 20 12/08/19 17:00 BP 150/75 H 12/08/19 17:00 Pulse Ox 92 L 12/08/19 17:00 - Orders/Labs/Meds Labs: Laboratory Tests 12/08/19 12/08/19 12/08/19 Range/Units 17:22 17:22 17:22 WBC 10.8 H (4.0-10.0) x10^3/uL RBC 4.97 (4.5-6.0) x10^6/uL Hgb 15.2 (14.0-18.0) g/dL Hct 45.4 (40.0-52.0) % MCV 91.3 (78.0-93.0) fL MCH 30.6 (26.0-32.0) pg MCHC 33.5 (32.0-36.0) g/dL RDW Coeff of Enrike 15.3 H (10.0-15.0) % Plt Count 218 (130-400) x10^3/uL Add Manual Diff Yes Neutrophils % (Manual) 58 (50-80) % Band Neutrophils % 7 H (0-6) % Lymphocytes % (Manual) 19 L (25-50) % Monocytes % (Manual) 8 (2-11) % Eosinophils % (Manual) 3 (0-4) % Metamyelocytes % 5 H (0) % Platelet Estimate Adequate Anisocytosis 1+ slight H D-Dimer, Quantitative 0.77 H (<=0.58) mg/LFEU Sodium 141 (136-145) mmol/L Potassium 4.0 (3.5-5.1) mmol/L Chloride 103 (98-107) mmol/L Carbon Dioxide 29 (21-32) mmol/L Anion Gap 13.0 (10-20) mmol/L BUN 15 (7-18) mg/dL Creatinine 1.5 H (0.70-1.30) mg/dL Est Cr Clr Drug Dosing 46.48 mL/min Estimated GFR (MDRD) 46 Glucose 196 H (74-106) mg/dL Calcium 8.4 L (8.5-10.1) mg/dL Corrected Calcium 8.88 (8.5-10.1) mg/dL Total Bilirubin 0.4 (0.2-1.0) mg/dL AST 25 (15-37) U/L ALT 35 (16-63) U/L Alkaline Phosphatase 70 (46-116) U/L Troponin I < 0.017 (<=0.056) ng/mL C-Reactive Protein 4.1 H (<=0.9) mg/dL NT-Pro-B Natriuret Pep 171 H (<=125) pg/mL Total Protein 8.0 (6.4-8.2) g/dL Albumin 3.4 (3.4-5.0) g/dL Globulin 4.6 Albumin/Globulin Ratio 0.74 Meds: Medications Discontinued Medications Generic Name Dose Route Start Last Admin Trade Name Freq PRN Reason Stop Dose Admin Al Hydroxide/Mg Hydroxide 30 ml 12/08/19 17:49 12/08/19 17:59 Gi Cocktail PO 12/08/19 17:50 30 ml ONETIME ONE Administration - Re-Assessments/Exams Free Text/Narrative Re-Assessment/Exam: 12/08/19 18:21 Patient's labs are stable. ProBNP has improved since his last ER visit and increasing his Lasix. Troponin negative. WBC stable. Chest xray shows resolution of recent infiltrate. patient was given GI cocktail and has improvement of his GI discomfort. Did advise him that if gets anxious in relation to his shortness of breath and COPD, can take a Lorazepam at that time as typically only takes it when in a social setting or around a lot of people. Continue usual meds. Departure - Departure Time of Disposition: 18:22 Disposition: Home, Self-Care 01 Condition: Fair Clinical Impression: COPD exacerbation - Discharge Information *PRESCRIPTION DRUG MONITORING PROGRAM REVIEWED*: No *COPY OF PRESCRIPTION DRUG MONITORING REPORT IN PATIENT KENDRICK: No Instructions: Shortness of Breath, Adult, Rkeu-ci-Acqs Forms: ED Department Discharge Additional Instructions: 1. Rest 2. Usual meds/nebulizers as directed 3. Continue Lasix 40 mg as recently prescribed by PCP 4. Lorazepam as needed for increased shortness of breath and anxiety 5. Follow up with Dr. Leal if any concerns. Sepsis Event Note - Focused Exam Vital Signs: Vital Signs Temp Pulse Resp BP Pulse Ox 12/08/19 17:00 98.7 F 87 20 150/75 H 92 L Date Exam was Performed: 12/08/19 Time Exam was Performed: 18:20
--- NOTE | 2019-12-08 17:44 | CR ---
[id number] RAD/RAD Chest PA And Lateral EXAM: FRONTAL AND LATERAL CHEST INDICATION: SHORTNESS OF BREATH. COMPARISON: November 23, 2019. DISCUSSION: Mild scarring in the right middle lobe. Interval resolution of right base infiltrates. No acute infiltrates identified. The heart is mildly enlarged with borderline central vascular congestion. Borderline pulmonary hyperinflation. IMPRESSION: 1. Interval resolution of right base infiltrates. 2. Cardiomegaly with borderline central vascular congestion. Nabeel Rivera MD 12/08/19 [id number] Thank you for allowing us to participate in the care of your patient.
[2019-12-08] MEDS ORDERED: GI Cocktail Oral Solution 30 ML PO ONE (17:49)
[2019-12-08 17:55] LABS: CHLORIDE,CL 103 mmol/L (98-107); SODIUM,NA 141 mmol/L (136-145)
[2019-12-08 18:35] VITALS: BP 147/85; PULSE 88
== END 2019-12-08 18:36 | disposition home or self-care (01) ==
LOC: VM.ED 16:52
DX: J44.1 Chronic obstructive pulmonary disease with (acute) exacerbation (principal); I25.10 Atherosclerotic heart disease of native coronary artery without angina pectoris; E78.00 Pure hypercholesterolemia, unspecified; I10 Essential (primary) hypertension; I25.2 Old myocardial infarction; K21.9 Gastro-esophageal reflux disease without esophagitis; E11.40 Type 2 diabetes mellitus with diabetic neuropathy, unspecified; F41.9 Anxiety disorder, unspecified; F32.9 Major depressive disorder, single episode, unspecified; E03.9 Hypothyroidism, unspecified; F17.200 Nicotine dependence, unspecified, uncomplicated; Z91.040 Latex allergy status; Z88.1 Allergy status to other antibiotic agents; Z88.8 Allergy status to other drugs, medicaments and biological substances; Z79.899 Other long term (current) drug therapy; Z79.82 Long term (current) use of aspirin; Z79.4 Long term (current) use of insulin; Z85.841 Personal history of malignant neoplasm of brain
CPT/HCPCS: 36415; 71046; 80053; 83880; 84484; 85025; 85379; 86140; 99284; 99284-GF; A9270-GY

== ENCOUNTER 2019-12-10 16:37 | Emergency (ER) | payer MEDICARE, OTHER ==
[2019-12-10] MEDS ORDERED: Sodium Chloride 0.9% 10 ML Syringe FLUSH PRN (16:46)
[2019-12-10] MEDS ORDERED: Furosemide 40 MG/4 ML VIAL IV ONE (16:51)
[2019-12-10 16:53] VITALS: BP 128/86; PULSE 85
[2019-12-10] MEDS ORDERED: Albuterol/Ipratropium 3.0-0.5 MG/3 ML Neb Soln NEB ONE (16:53)
[2019-12-10 17:27] LABS: PTT,PARTIAL THROMBOPLSTIN TIME 26.4 SEC (24.0-36.0)
--- NOTE | 2019-12-10 17:28 | EDM.PDOC ---
ED HPI GENERAL MEDICAL PROBLEM - General Chief Complaint: Respiratory Problem Stated Complaint: SOB Time Seen by Provider: 12/10/19 16:50 Source of Information: Reports: Patient, RN - History of Present Illness INITIAL COMMENTS - FREE TEXT/NARRATIVE: Chip is a 69 y/o male who is sent to the ER from the [facility] by Dr Gale Leal for shortness of breath. Patient had a CXR and EKG in the office today. Patient was admitted for a pneumonia on 11/23/2019 and discharged on 2019. He has continued to have shortness of breath. He then was here in the ER on 12/03/2019 and his Lasix was increased. Today he did not take the increased dose and is more SOB. He had apparently not increased the dose at home. Today in the clinic he was dizzy, lightheaded and had exertional dyspnea. He got very anxious. According to PCP he has not drank alcohol in the 3 weeks since he has been ill, but prior to that he was a heavy user. He does smoke 2 PPD, but has been down to 1/2 PPD since being sick. The clinic PCP sent him here for labs and further diagnostic testing. - Related Data Allergies Allergy/AdvReac Type Severity Reaction Status Date / Time latex Allergy Severe Rash Verified 12/10/19 17:02 azithromycin Allergy Other Verified 12/10/19 17:02 ezetimibe [From Zetia] Allergy Other Verified 12/10/19 17:02 fenofibrate Allergy Other Verified 12/10/19 17:02 gabapentin [From Neurontin] Allergy Other Verified 12/10/19 17:02 sertraline [From Zoloft] Allergy Other Verified 12/10/19 17:02 atorvastatin [From Lipitor] AdvReac Muscle Verified 12/10/19 17:02 Aches carbamazepine AdvReac Confusion Verified 12/10/19 17:02 Home Meds: Home Meds Hydrocodone/Acetaminophen [Hydrocodon-Acetaminophn 10-325] 1 tab PO TID PRN [History] LORazepam 0.5 mg PO TID PRN 05/28/16 [History] Tamsulosin HCl 0.8 mg PO BEDTIME 05/28/16 [History] Tiotropium [Spiriva Handihaler] 1 inh PO DAILY@1900 05/28/16 [History] metFORMIN HCl [Metformin HCl] 1,000 mg PO BID 05/28/16 [History] Famotidine [Pepcid] 20 mg PO DAILY 04/07/17 [History] Flaxseed Oil [Flaxseed] 1,000 mg PO DAILY 04/07/17 [History] Furosemide [Lasix] 40 mg PO DAILY 04/07/17 [History] Nitroglycerin [Nitrostat] 0.4 mg SL Q5M PRN 04/07/17 [History] Pantoprazole Sodium [Protonix] 40 mg PO QAM 04/07/17 [History] Hooper-3 Acid Ethyl Esters [Lovaza] 1 gm PO BIDMEALS 07/09/17 [History] Testosterone Cypionate [Depo-Testosterone] 300 mg IM Q21D 07/09/17 [History] Hydrocortisone 10 - 20 mg PO DAILY PRN 10/10/17 [History] Metoprolol Succinate [Toprol Xl] 200 mg PO DAILY 10/10/17 [History] Aspirin [Halfprin] 81 mg PO DAILY 10/11/17 [History] Albuterol [Ventolin HFA] 2 puff PO Q4H PRN 08/16/18 [History] Hydrocortisone [Cortef] 10 mg PO BEDTIME 08/16/18 [History] Hydrocortisone [Cortef] 20 mg PO DAILY 08/16/18 [History] Sildenafil Citrate 50 mg PO DAILY PRN 08/16/18 [History] Insulin Aspart [NovoLOG] 8 unit SQ ASDIRECTED 02/04/19 [History] Insulin Glargine,Hum.Rec.Anlog [Lantus Solostar] 60 units SQ DAILY 02/04/19 [ History] Levothyroxine 150 mcg PO ACBREAKFAST 02/04/19 [History] amLODIPine Besylate [Norvasc] 10 mg PO DAILY 02/04/19 [History] lisinopriL [Prinivil] 10 mg PO DAILY 02/04/19 [History] Furosemide [Lasix] 40 mg PO BID 30 Days #45 tab 12/10/19 [Rx] Past Medical History HEENT History: Reports: None, Other (See Below) Other HEENT History: astigmatism; myopia Cardiovascular History: Reports: Angina, CAD, High Cholesterol, Hypertension, [place] , Stents Other Cardiovascular History: hx of 4 Stents; 2 GA's Respiratory History: Reports: COPD Gastrointestinal History: Reports: GERD Genitourinary History: Reports: Diabetic Nephropathy, Retention, Urinary, Other (See Below) Other Genitourinary History: erectile dysfunction Musculoskeletal History: Reports: Other (See Below) Other Musculoskeletal History: back pain Neurological History: Reports: Neuropathy, Diabetic Psychiatric History: Reports: Addiction, Anxiety, Depression, PTSD, Other (See Below) Other Psychiatric History: social phobia Endocrine/Metabolic History: Reports: Diabetes, Type II, Hypothyroidism Other Endocrine/Metabolic History: Panhypopituitarism; pituitary tumor Dermatologic History: Reports: Eczema, Other (See Below) Other Dermatologic History: 12/18 shingles - Infectious Disease History Infectious Disease History: Reports: C-Difficile - Past Surgical History HEENT Surgical History: Reports: Tonsillectomy, Other (See Below) Other HEENT Surgeries/Procedures: Open Mayra. Cardiovascular Surgical History: Reports: Coronary Artery Stent, Other (See Below) Other Cardiovascular Surgeries/Procedures: coronary angioplasty GI Surgical History: Reports: Cholecystectomy, Colonoscopy, Other (See Below) Other GI Surgeries/Procedures: upper endoscopy Male Surgical History: Reports: Vasectomy Endocrine Surgical History: Reports: Other (See Below) Other Endocrine Surgeries/Procedures: pituitary removed Musculoskeletal Surgical History: Reports: Other (See Below) Other Musculoskeletal Surgeries/Procedures:: lumbar spine fusion; fusion lumbar thoracic spine Social & Family History - Family History Family Medical History: Noncontributory Other Cardiac Family History: stroke, heart attack - Caffeine Use Caffeine Use: Reports: Coffee - Living Situation & Occupation Living situation: Reports: (2 children), with Spouse Occupation: Retired (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 He has a previous Ulises bit in the [employer] and does have PTSD.) ED ROS GENERAL - Review of Systems Review Of Systems: See Below Constitutional: Reports: Malaise, Fatigue HEENT: Reports: No Symptoms Respiratory: Reports: Shortness of Breath Cardiovascular: Reports: Dyspnea on Exertion, Edema, Lightheadedness Endocrine: Reports: Fatigue GI/Abdominal: Reports: No Symptoms : Reports: No Symptoms Musculoskeletal: Reports: No Symptoms Skin: Reports: No Symptoms Neurological: Reports: Dizziness Psychiatric: Reports: Anxiety Hematologic/Lymphatic: Reports: No Symptoms Immunologic: Reports: No Symptoms ED EXAM, GENERAL - Physical Exam Exam: See Below General Appearance: Alert, WD/WN, No Apparent Distress, Anxious, Other (Elceryl male.) Ears: Normal External Exam, Normal Canal, Hearing Grossly Normal Nose: Normal Inspection Throat/Mouth: Normal Inspection, Normal Lips, Normal Teeth Head: Atraumatic, Normocephalic Neck: Normal Inspection, Supple, Non-Tender Respiratory/Chest: Chest Non-Tender, Rales (BLL), Rhonchi, Other (Scattered coarseness). No: Wheezing Cardiovascular: Normal Peripheral Pulses, Regular Rate, Rhythm, No JVD, No Murmur GI/Abdominal: Normal Bowel Sounds, Soft, Non-Tender (Male) Exam: Deferred Rectal (Males) Exam: Deferred Back Exam: Normal Inspection, Full Range of Motion Extremities: Normal Inspection Neurological: Alert, Oriented, CN II-XII Intact, Normal Cognition, Normal Gait Psychiatric: Anxious Skin Exam: Warm, Dry, Intact, Normal Color, No Rash Lymphatic: No Adenopathy Course - Vital Signs Text/Narrative:: 1649 The patient was seen by the [employer] SAW OPERATOR. Labs ordered. Reviewed EKG and CXR from PCP office that was done today. He was given Lasix 40mg IVP. 1724 Reviewed case with PCP Dr Gale Leal, labs pending prior to PE Study. 1909 CT results reviewed and negative. Patient diuresed 450ml and feels better after peeing ad having the neb. Patient anxious to go home. Discharge instructions were given and he was sent home in stable condition. Last Recorded V/S: Last Vital Signs Temp 37.1 C 12/10/19 16:37 Pulse 85 12/10/19 16:37 Resp 28 H 12/10/19 16:37 BP 128/86 12/10/19 16:37 Pulse Ox 93 L 12/10/19 16:37 - Orders/Labs/Meds Orders: Active Orders 24 hr Category Date Time Status RT Aerosol Therapy [RC] ASDIRECTED Care 12/10/19 16:53 Active Sodium Chloride 0.9% [Saline Flush] Med 12/10/19 16:46 Active 10 ml FLUSH ASDIRECTED PRN Saline Lock Insert [OM.PC] Stat Oth 12/10/19 16:47 Ordered Medication Orders Sodium Chloride (Saline Flush) 10 ml FLUSH ASDIRECTED PRN PRN Reason: Keep Vein Open Labs: Laboratory Tests 03/10/20 03/10/20 03/10/20 Range/Units 17:02 17:02 17:02 WBC 9.7 (4.0-10.0) x10^3/uL RBC 4.92 (4.5-6.0) x10^6/uL Hgb 14.5 (14.0-18.0) g/dL Hct 45.3 (40.0-52.0) % MCV 92.1 (78.0-93.0) fL MCH 29.5 (26.0-32.0) pg MCHC 32.0 (32.0-36.0) g/dL RDW Coeff of Enrike 15.5 H (10.0-15.0) % Plt Count 203 (130-400) x10^3/uL Neut % (Auto) 62.0 (50.0-80.0) % Lymph % (Auto) 26.1 (25.0-50.0) % [place]ala % (Auto) 8.0 (2.0-11.0) % Eos % (Auto) 3.4 (0.0-4.0) % Baso % (Auto) 0.5 (0.2-1.2) % PT 11.4 (10.0-12.8) SEC INR 1.0 L (2.0-3.5) APTT 26.4 (24.0-36.0) SEC D-Dimer, Quantitative 0.77 H (<=0.58) mg/LFEU Sodium 142 (136-145) mmol/L Potassium 4.0 (3.5-5.1) mmol/L Chloride 101 (98-107) mmol/L Carbon Dioxide 28 (21-32) mmol/L Anion Gap 17.0 (10-20) mmol/L BUN 11 (7-18) mg/dL Creatinine 1.4 H (0.70-1.30) mg/dL Est Cr Clr Drug Dosing TNP Estimated GFR (MDRD) 50 Glucose 139 H (74-106) mg/dL Calcium 8.7 (8.5-10.1) mg/dL Corrected Calcium 9.18 (8.5-10.1) mg/dL Total Bilirubin 0.5 (0.2-1.0) mg/dL AST 19 (15-37) U/L ALT 30 (16-63) U/L Alkaline Phosphatase 64 (46-116) U/L Troponin I < 0.017 (<=0.056) ng/mL NT-Pro-B Natriuret Pep 306 H (<=125) pg/mL Total Protein 7.8 (6.4-8.2) g/dL Albumin 3.4 (3.4-5.0) g/dL Globulin 4.4 Albumin/Globulin Ratio 0.77 Meds: Medications Generic Name Dose Route Start Last Admin Trade Name Freq PRN Reason Stop Dose Admin Sodium Chloride 10 ml 12/10/19 16:46 Saline Flush FLUSH ASDIRECTED PRN Keep Vein Open Discontinued Medications Generic Name Dose Route Start Last Admin Trade Name Freq PRN Reason Stop Dose Admin Albuterol/Ipratropium 3 ml 12/10/19 16:53 12/10/19 17:03 Duoneb 3.0-0.5 Mg/3 Ml NEB 12/10/19 16:54 3 ml ONETIME ONE Administration Furosemide 40 mg 12/10/19 16:51 12/10/19 17:03 Lasix IV 12/10/19 16:52 40 mg ONETIME ONE Administration Iopamidol 100 ml 12/10/19 17:55 12/10/19 18:02 Isovue-300 (61%) IVPUSH 12/10/19 17:56 100 ml ONETIME ONE Administration - Radiology Interpretation Free Text/Narrative:: CTA=No pulmonary Emboli Departure - Departure Time of Disposition: 19:06 Disposition: Home, Self-Care 01 Condition: Good Clinical Impression: Congestive heart failure - Discharge Information *PRESCRIPTION DRUG MONITORING PROGRAM REVIEWED*: Not Applicable *COPY OF PRESCRIPTION DRUG MONITORING REPORT IN PATIENT KENDRICK: Not Applicable Prescriptions: Furosemide [Lasix] 40 mg PO BID 30 Days #45 tab Instructions: Heart Failure Forms: ED Department Discharge Additional Instructions: -Take Lasix 40mg (1 tablet) in the AM and 20 mg (1/2 tablet) at noon. (Rx) -Follow up with Dr Gale Leal in 1 week for a recheck -Use the Albuterol inhaler as prescribed when needed -Weight yourself daily and record weight. Take this to your clinic appt in 1 week to reviewed with your doctor. -Return to the ER as needed Sepsis Event Note - Evaluation Sepsis Screening Result: No Definite Risk - Focused Exam Vital Signs: Vital Signs Temp Pulse Resp BP Pulse Ox 12/10/19 16:37 37.1 C 85 28 H 128/86 93 L Date Exam was Performed: 12/10/19 Time Exam was Performed: 19:05 - My Orders Last 24 Hours: My Active Orders 12/10/19 16:46 Sodium Chloride 0.9% [Saline Flush] 10 ml FLUSH ASDIRECTED PRN 12/10/19 16:47 Saline Lock Insert [OM.PC] Stat 12/10/19 16:53 RT Aerosol Therapy [RC] ASDIRECTED - Assessment/Plan Last 24 Hours: My Active Orders 12/10/19 16:46 Sodium Chloride 0.9% [Saline Flush] 10 ml FLUSH ASDIRECTED PRN 12/10/19 16:47 Saline Lock Insert [OM.PC] Stat 12/10/19 16:53 RT Aerosol Therapy [RC] ASDIRECTED
[2019-12-10 17:34] LABS: CHLORIDE,CL 101 mmol/L (98-107); SODIUM,NA 142 mmol/L (136-145)
[2019-12-10] MEDS ORDERED: Iopamidol 612 MG/ML 100 ML Bottle IVPUSH ONE (17:55)
--- NOTE | 2019-12-10 18:36 | CT ---
[id number] CT/CTA Chest Exam: CTA Chest Clinical Data: SHORTNESS OF BREATH COMPARISON: CORRELATION IS MADE WITH THE CHEST RADIOGRAPH OF DECEMBER 08, 2019 FINDINGS: There are no pulmonary emboli. The lungs are clear except for pleural thickening at the right lung base The great vessels are intact There is no mediastinal mass Subcentimeter mediastinal lymph nodes are seen IMPRESSION: NO PULMONARY EMBOLI Amadeo Hicks MD 12/10/19 1124 Thank you for allowing us to participate in the care of your patient.
== END 2019-12-10 19:20 | disposition home or self-care (01) ==
LOC: VM.ED 16:37
DX: I11.0 Hypertensive heart disease with heart failure (principal); I50.9 Heart failure, unspecified; I25.2 Old myocardial infarction; I25.10 Atherosclerotic heart disease of native coronary artery without angina pectoris; E78.00 Pure hypercholesterolemia, unspecified; E11.21 Type 2 diabetes mellitus with diabetic nephropathy; E11.40 Type 2 diabetes mellitus with diabetic neuropathy, unspecified; E03.9 Hypothyroidism, unspecified; F41.9 Anxiety disorder, unspecified; F32.9 Major depressive disorder, single episode, unspecified; J44.9 Chronic obstructive pulmonary disease, unspecified; K21.9 Gastro-esophageal reflux disease without esophagitis; Z91.040 Latex allergy status; Z88.1 Allergy status to other antibiotic agents; Z88.8 Allergy status to other drugs, medicaments and biological substances; Z79.4 Long term (current) use of insulin; Z79.899 Other long term (current) drug therapy
CPT/HCPCS: 36415; 71275; 80053; 83880; 84484; 85025; 85379; 85610; 85730; 94640; 96374; 99284; 99285; J1940; Q9967; J7620-GY

== ENCOUNTER 2022-03-08 16:35 | Emergency (ER) | payer OTHER, MEDICARE ==
[2022-03-08] MEDS ORDERED: GI Cocktail Oral Solution 30 ML PO ONE (17:12)
[2022-03-08] MEDS ORDERED: Albuterol/Ipratropium 3.0-0.5 MG/3 ML Neb Soln NEB ONE (17:12)
[2022-03-08 17:44] LABS: ANION GAP 16.2 mmol/L (5-15); CHLORIDE,CL 98 mmol/L (98-107); ESTIMATED GFR 37; SODIUM,NA 138 mmol/L (136-145)
[2022-03-08] MEDS ORDERED: cefTRIAXone 1 GM Vial IVPUSH ONE (19:29)
[2022-03-08] MEDS ORDERED: methylPREDNISolone Sodium Succinate 125 MG/2 ML SDV IVPUSH ONE (19:29)
[2022-03-08 20:03] VITALS: BP 134/72; PULSE 93
== END 2022-03-08 19:53 | disposition home or self-care (01) ==
LOC: VM.ED 16:35
DX: J18.9 Pneumonia, unspecified organism (principal); J44.9 Chronic obstructive pulmonary disease, unspecified; I25.119 Atherosclerotic heart disease of native coronary artery with unspecified angina pectoris; K21.9 Gastro-esophageal reflux disease without esophagitis; E11.21 Type 2 diabetes mellitus with diabetic nephropathy; E11.40 Type 2 diabetes mellitus with diabetic neuropathy, unspecified; E03.9 Hypothyroidism, unspecified; E66.9 Obesity, unspecified; Z68.37 Body mass index [BMI] 37.0-37.9, adult; Z72.0 Tobacco use; Z91.040 Latex allergy status; Z88.1 Allergy status to other antibiotic agents; Z88.5 Allergy status to narcotic agent; Z88.8 Allergy status to other drugs, medicaments and biological substances; Z79.899 Other long term (current) drug therapy; Z79.82 Long term (current) use of aspirin; Z79.4 Long term (current) use of insulin; Z20.822 Contact with and (suspected) exposure to COVID-19
CPT/HCPCS: 71046; 80053; 82550; 83615; 83880; 84484; 85025; 85379; 86140; 87635; 93005; 99285; A9270; J0696; J2930; J7620-GY; U0002

== ENCOUNTER 2022-04-06 19:05 | Emergency (ER) | payer MEDICARE ==
[2022-04-06] MEDS: Albuterol/Ipratropium 3.0-0.5 MG/3 ML Neb Soln NEB ONE (19:15)
[2022-04-06] MEDS: Sodium Chloride 0.9% 1,000 ML IV ONE (19:35)
[2022-04-06] MEDS: Acetaminophen 325 MG Tab PO ONE (19:47)
[2022-04-06 19:56] LABS: CORONAVIRUS COVID-19 NAA NEGATIVE (NEGATIVE)
[2022-04-06] MEDS: cefTRIAXone 2 GM Vial IVPUSH ONE (20:20)
[2022-04-06 20:21] LABS: CHLORIDE,CL 95 mmol/L (98-107); SODIUM,NA 134 mmol/L (136-145)
[2022-04-06 20:27] LABS: ANION GAP 15.1 mmol/L (5-15); ESTIMATED GFR 37 mL/min (>=60)
[2022-04-07 04:00] VITALS: BP 128/61; PULSE 98
== END 2022-04-06 21:15 | disposition home or self-care (01) ==
LOC: VM.ED 19:05
DX: J44.1 Chronic obstructive pulmonary disease with (acute) exacerbation (principal); I25.119 Atherosclerotic heart disease of native coronary artery with unspecified angina pectoris; E78.00 Pure hypercholesterolemia, unspecified; I11.0 Hypertensive heart disease with heart failure; I50.9 Heart failure, unspecified; I25.2 Old myocardial infarction; E11.40 Type 2 diabetes mellitus with diabetic neuropathy, unspecified; E03.9 Hypothyroidism, unspecified; E66.9 Obesity, unspecified; Z68.41 Body mass index [BMI] 40.0-44.9, adult; Z95.5 Presence of coronary angioplasty implant and graft; Z88.1 Allergy status to other antibiotic agents; Z91.040 Latex allergy status; Z88.8 Allergy status to other drugs, medicaments and biological substances; Z79.899 Other long term (current) drug therapy; Z79.82 Long term (current) use of aspirin; Z20.822 Contact with and (suspected) exposure to COVID-19
CPT/HCPCS: 0240U; 36415; 71046; 80053; 82550; 83605; 83615; 83880; 84145; 84484; 85025; 86140; 87040; 87077; 94640; 96361; 96374; 99284; 99285-25; A9270-GY; J0696; J7030; J7620-GY

== ENCOUNTER 2022-08-05 13:24 | Inpatient (IN) | payer MEDICARE, OTHER ==
[2022-08-05] MEDS: oxyCODONE 5 MG Tab PO PRN ×2 (16:14→20:20)
[2022-08-05] MEDS ORDERED: Albuterol 0.083% 2.5 MG/3 ML Neb Soln INH PRN (16:27)
[2022-08-05] MEDS ORDERED: Calcium Carbonate 750 MG Tab.Chew PO PRN (16:27)
[2022-08-05] MEDS ORDERED: Albuterol HFA 18 Gm Inhaler INH PRN (16:27)
[2022-08-05] MEDS ORDERED: oxyCODONE 5 MG Tab PO PRN (16:27)
[2022-08-05] MEDS ORDERED: LORazepam 0.5 MG Tab PO PRN (16:27)
[2022-08-05] MEDS: Furosemide 40 MG Tab PO SCH (17:31)
[2022-08-05] MEDS: Acetaminophen 500 MG Tab PO SCH (17:32)
[2022-08-05] MEDS: metFORMIN 500 MG Tab PO SCH (17:32)
[2022-08-05] MEDS: Cyclobenzaprine 10 MG Tab PO SCH (20:16)
[2022-08-06] MEDS: oxyCODONE 5 MG Tab PO PRN ×4 (00:20→20:16)
[2022-08-06] MEDS: Acetaminophen 500 MG Tab PO SCH ×3 (00:21→17:21)
[2022-08-06] MEDS: Levothyroxine 150 MCG Tab PO SCH (06:02)
[2022-08-06] MEDS: Tiotropium Bromide 4 GM Inhalation Spray (2.5mcg/1 dose; 10 doses) INH SCH (06:06)
[2022-08-06] MEDS: Hydrocortisone 20 MG Tab PO SCH (08:09)
[2022-08-06] MEDS: Pantoprazole 40 MG Tab.CR PO SCH (08:09)
[2022-08-06] MEDS: Aspirin 81 MG Tab.EC PO SCH (08:10)
[2022-08-06] MEDS: Fish Oil/Omega-3 Fatty Acids 1 Gm Cap PO SCH (08:11)
[2022-08-06] MEDS: Furosemide 40 MG Tab PO SCH ×2 (08:12→17:20)
[2022-08-06] MEDS: Multivitamins with Iron/Calcium/Folic Acid/Minerals Tab PO SCH (08:12)
[2022-08-06] MEDS: metFORMIN 500 MG Tab PO SCH ×2 (08:12→17:21)
[2022-08-06] MEDS: Tamsulosin 0.4 MG Cap.ER PO SCH (08:12)
[2022-08-06] MEDS: amLODIPine 10 MG Tab PO SCH (08:12)
[2022-08-06] MEDS: Polyethylene Glycol 3350 Powder 17 GM Packet PO SCH (08:13)
[2022-08-06] MEDS: Cyclobenzaprine 10 MG Tab PO SCH ×3 (08:13→20:14)
[2022-08-06] MEDS: Nicotine 21 MG/24 Hr Patch TOP SCH (08:13)
[2022-08-06] MEDS: Insulin Glarg,Human.Rec.Analog 100 Unit/ML SUBCUT SCH (08:19)
[2022-08-07] MEDS: oxyCODONE 5 MG Tab PO PRN ×4 (03:43→20:51)
[2022-08-07] MEDS: Acetaminophen 500 MG Tab PO SCH ×3 (03:44→17:07)
[2022-08-07] MEDS: Tiotropium Bromide 4 GM Inhalation Spray (2.5mcg/1 dose; 10 doses) INH SCH (06:45)
[2022-08-07] MEDS: Levothyroxine 150 MCG Tab PO SCH (06:45)
[2022-08-07] MEDS: Nicotine 21 MG/24 Hr Patch TOP SCH (08:06)
[2022-08-07] MEDS: Tamsulosin 0.4 MG Cap.ER PO SCH (08:07)
[2022-08-07] MEDS: metFORMIN 500 MG Tab PO SCH ×2 (08:08→17:07)
[2022-08-07] MEDS: Furosemide 40 MG Tab PO SCH ×2 (08:08→17:07)
[2022-08-07] MEDS: Fish Oil/Omega-3 Fatty Acids 1 Gm Cap PO SCH (08:08)
[2022-08-07] MEDS: Multivitamins with Iron/Calcium/Folic Acid/Minerals Tab PO SCH (08:08)
[2022-08-07] MEDS: amLODIPine 10 MG Tab PO SCH (08:09)
[2022-08-07] MEDS: Hydrocortisone 20 MG Tab PO SCH (08:09)
[2022-08-07] MEDS: Pantoprazole 40 MG Tab.CR PO SCH (08:09)
[2022-08-07] MEDS: Aspirin 81 MG Tab.EC PO SCH (08:09)
[2022-08-07] MEDS: Cyclobenzaprine 10 MG Tab PO SCH ×3 (08:11→20:42)
[2022-08-07] MEDS: Polyethylene Glycol 3350 Powder 17 GM Packet PO SCH (08:13)
[2022-08-07] MEDS: Insulin Glarg,Human.Rec.Analog 100 Unit/ML SUBCUT SCH (08:14)
[2022-08-07] MEDS: Pregabalin 25 MG Cap PO SCH (20:44)
[2022-08-08] MEDS: Acetaminophen 500 MG Tab PO SCH ×3 (02:00→18:00)
[2022-08-08] MEDS: Tiotropium Bromide 4 GM Inhalation Spray (2.5mcg/1 dose; 10 doses) INH SCH (06:25)
[2022-08-08] MEDS: Levothyroxine 150 MCG Tab PO SCH (06:25)
[2022-08-08 06:59] LABS: ANION GAP 8.8 mmol/L (5-15)
[2022-08-08] MEDS: Nicotine 21 MG/24 Hr Patch TOP SCH (08:34)
[2022-08-08] MEDS: metFORMIN 500 MG Tab PO SCH ×2 (08:35→18:02)
[2022-08-08] MEDS: Multivitamins with Iron/Calcium/Folic Acid/Minerals Tab PO SCH (08:36)
[2022-08-08] MEDS: Fish Oil/Omega-3 Fatty Acids 1 Gm Cap PO SCH ×3 (08:36→18:02)
[2022-08-08] MEDS: Hydrocortisone 20 MG Tab PO SCH (08:36)
[2022-08-08] MEDS: Tamsulosin 0.4 MG Cap.ER PO SCH (08:36)
[2022-08-08] MEDS: Furosemide 40 MG Tab PO SCH ×2 (08:37→18:01)
[2022-08-08] MEDS: Aspirin 81 MG Tab.EC PO SCH (08:37)
[2022-08-08] MEDS: Pantoprazole 40 MG Tab.CR PO SCH (08:37)
[2022-08-08] MEDS: amLODIPine 10 MG Tab PO SCH (08:38)
[2022-08-08] MEDS: Cyclobenzaprine 10 MG Tab PO SCH ×3 (08:39→20:01)
[2022-08-08] MEDS: Polyethylene Glycol 3350 Powder 17 GM Packet PO SCH (08:40)
[2022-08-08] MEDS: oxyCODONE 5 MG Tab PO PRN ×3 (08:45→20:03)
[2022-08-08] MEDS: Insulin Glarg,Human.Rec.Analog 100 Unit/ML SUBCUT SCH (08:47)
[2022-08-08] MEDS: Pregabalin 25 MG Cap PO SCH (20:02)
[2022-08-09] MEDS: Acetaminophen 500 MG Tab PO SCH ×3 (03:05→17:38)
[2022-08-09] MEDS: oxyCODONE 5 MG Tab PO PRN ×3 (03:17→18:22)
[2022-08-09] MEDS: Levothyroxine 150 MCG Tab PO SCH (06:37)
[2022-08-09] MEDS: Tiotropium Bromide 4 GM Inhalation Spray (2.5mcg/1 dose; 10 doses) INH SCH (06:38)
[2022-08-09] MEDS: Furosemide 40 MG Tab PO SCH ×2 (08:23→17:38)
[2022-08-09] MEDS: metFORMIN 500 MG Tab PO SCH ×2 (08:23→17:38)
[2022-08-09] MEDS: Aspirin 81 MG Tab.EC PO SCH (08:23)
[2022-08-09] MEDS: Tamsulosin 0.4 MG Cap.ER PO SCH (08:26)
[2022-08-09] MEDS: Cyclobenzaprine 10 MG Tab PO SCH ×3 (08:27→21:19)
[2022-08-09] MEDS: amLODIPine 10 MG Tab PO SCH (08:27)
[2022-08-09] MEDS: Fish Oil/Omega-3 Fatty Acids 1 Gm Cap PO SCH ×2 (08:27→17:37)
[2022-08-09] MEDS: Multivitamins with Iron/Calcium/Folic Acid/Minerals Tab PO SCH (08:28)
[2022-08-09] MEDS: Polyethylene Glycol 3350 Powder 17 GM Packet PO SCH (08:28)
[2022-08-09] MEDS: Nicotine 21 MG/24 Hr Patch TOP SCH (08:28)
[2022-08-09] MEDS: Hydrocortisone 20 MG Tab PO SCH (08:30)
[2022-08-09] MEDS: Pantoprazole 40 MG Tab.CR PO SCH (08:30)
[2022-08-09] MEDS: Insulin Glarg,Human.Rec.Analog 100 Unit/ML SUBCUT SCH (08:39)
[2022-08-09] MEDS ORDERED: FLAXSEED OIL 1000 MG PO SCH (09:00)
[2022-08-09] MEDS: Pregabalin 25 MG Cap PO SCH (21:28)
[2022-08-10] MEDS: Acetaminophen 500 MG Tab PO SCH ×3 (00:54→17:23)
[2022-08-10] MEDS: oxyCODONE 5 MG Tab PO PRN ×5 (01:53→22:44)
[2022-08-10] MEDS: Levothyroxine 150 MCG Tab PO SCH (07:41)
[2022-08-10] MEDS: Tiotropium Bromide 4 GM Inhalation Spray (2.5mcg/1 dose; 10 doses) INH SCH (07:43)
[2022-08-10] MEDS: Hydrocortisone 20 MG Tab PO SCH (08:13)
[2022-08-10] MEDS: Cyclobenzaprine 10 MG Tab PO SCH ×3 (08:13→20:26)
[2022-08-10] MEDS: Nicotine 21 MG/24 Hr Patch TOP SCH (08:13)
[2022-08-10] MEDS: Polyethylene Glycol 3350 Powder 17 GM Packet PO SCH (08:13)
[2022-08-10] MEDS: Aspirin 81 MG Tab.EC PO SCH (08:14)
[2022-08-10] MEDS: amLODIPine 10 MG Tab PO SCH (08:14)
[2022-08-10] MEDS: Fish Oil/Omega-3 Fatty Acids 1 Gm Cap PO SCH ×2 (08:14→17:23)
[2022-08-10] MEDS: Tamsulosin 0.4 MG Cap.ER PO SCH (08:14)
[2022-08-10] MEDS: Furosemide 40 MG Tab PO SCH ×2 (08:14→17:23)
[2022-08-10] MEDS: Multivitamins with Iron/Calcium/Folic Acid/Minerals Tab PO SCH (08:15)
[2022-08-10] MEDS: Pantoprazole 40 MG Tab.CR PO SCH (08:15)
[2022-08-10] MEDS: metFORMIN 500 MG Tab PO SCH ×2 (08:15→17:22)
[2022-08-10] MEDS: Insulin Glarg,Human.Rec.Analog 100 Unit/ML SUBCUT SCH (08:16)
[2022-08-10] MEDS: Pregabalin 25 MG Cap PO SCH (20:28)
[2022-08-11] MEDS: Acetaminophen 500 MG Tab PO SCH ×3 (00:11→16:43)
[2022-08-11] MEDS: Levothyroxine 150 MCG Tab PO SCH (06:44)
[2022-08-11] MEDS: Tiotropium Bromide 4 GM Inhalation Spray (2.5mcg/1 dose; 10 doses) INH SCH (06:46)
[2022-08-11] MEDS: oxyCODONE 5 MG Tab PO PRN ×3 (08:48→20:53)
[2022-08-11] MEDS: Aspirin 81 MG Tab.EC PO SCH (08:49)
[2022-08-11] MEDS: Furosemide 40 MG Tab PO SCH ×2 (08:49→16:46)
[2022-08-11] MEDS: Cyclobenzaprine 10 MG Tab PO SCH ×3 (08:49→20:50)
[2022-08-11] MEDS: metFORMIN 500 MG Tab PO SCH ×2 (08:51→18:12)
[2022-08-11] MEDS: Multivitamins with Iron/Calcium/Folic Acid/Minerals Tab PO SCH (08:51)
[2022-08-11] MEDS: Polyethylene Glycol 3350 Powder 17 GM Packet PO SCH (08:51)
[2022-08-11] MEDS: Fish Oil/Omega-3 Fatty Acids 1 Gm Cap PO SCH ×2 (08:51→18:15)
[2022-08-11] MEDS: Pantoprazole 40 MG Tab.CR PO SCH (08:52)
[2022-08-11] MEDS: amLODIPine 10 MG Tab PO SCH (08:52)
[2022-08-11] MEDS: Tamsulosin 0.4 MG Cap.ER PO SCH (08:52)
[2022-08-11] MEDS: Insulin Glarg,Human.Rec.Analog 100 Unit/ML SUBCUT SCH (08:53)
[2022-08-11] MEDS: Nicotine 21 MG/24 Hr Patch TOP SCH (08:54)
[2022-08-11] MEDS: Hydrocortisone 20 MG Tab PO SCH (09:09)
[2022-08-11] MEDS: Pregabalin 25 MG Cap PO SCH (20:53)
[2022-08-12] MEDS: Acetaminophen 500 MG Tab PO SCH ×3 (00:36→17:15)
[2022-08-12] MEDS: oxyCODONE 5 MG Tab PO PRN ×4 (03:46→20:03)
[2022-08-12] MEDS: Levothyroxine 150 MCG Tab PO SCH (06:56)
[2022-08-12] MEDS: Tiotropium Bromide 4 GM Inhalation Spray (2.5mcg/1 dose; 10 doses) INH SCH (06:57)
[2022-08-12] MEDS: Polyethylene Glycol 3350 Powder 17 GM Packet PO SCH (10:33)
[2022-08-12] MEDS: metFORMIN 500 MG Tab PO SCH ×2 (10:33→17:16)
[2022-08-12] MEDS: Tamsulosin 0.4 MG Cap.ER PO SCH (10:33)
[2022-08-12] MEDS: Hydrocortisone 20 MG Tab PO SCH (10:33)
[2022-08-12] MEDS: Aspirin 81 MG Tab.EC PO SCH (10:34)
[2022-08-12] MEDS: Fish Oil/Omega-3 Fatty Acids 1 Gm Cap PO SCH ×2 (10:34→17:15)
[2022-08-12] MEDS: Cyclobenzaprine 10 MG Tab PO SCH ×3 (10:35→20:01)
[2022-08-12] MEDS: Multivitamins with Iron/Calcium/Folic Acid/Minerals Tab PO SCH (10:36)
[2022-08-12] MEDS: Furosemide 40 MG Tab PO SCH ×2 (10:37→17:16)
[2022-08-12] MEDS: Pantoprazole 40 MG Tab.CR PO SCH (10:37)
[2022-08-12] MEDS: amLODIPine 10 MG Tab PO SCH (10:37)
[2022-08-12] MEDS: Nicotine 21 MG/24 Hr Patch TOP SCH (10:37)
[2022-08-12] MEDS: Insulin Glarg,Human.Rec.Analog 100 Unit/ML SUBCUT SCH (10:39)
[2022-08-12] MEDS: Pregabalin 25 MG Cap PO SCH (20:00)
[2022-08-13] MEDS: Acetaminophen 500 MG Tab PO SCH ×3 (00:40→17:12)
[2022-08-13] MEDS: oxyCODONE 5 MG Tab PO PRN ×5 (00:41→21:19)
[2022-08-13] MEDS: Levothyroxine 150 MCG Tab PO SCH (06:21)
[2022-08-13] MEDS: Tiotropium Bromide 4 GM Inhalation Spray (2.5mcg/1 dose; 10 doses) INH SCH (06:21)
[2022-08-13] MEDS: Nicotine 21 MG/24 Hr Patch TOP SCH (09:27)
[2022-08-13] MEDS: metFORMIN 500 MG Tab PO SCH ×2 (09:28→17:12)
[2022-08-13] MEDS: Hydrocortisone 20 MG Tab PO SCH (09:28)
[2022-08-13] MEDS: Aspirin 81 MG Tab.EC PO SCH (09:28)
[2022-08-13] MEDS: Multivitamins with Iron/Calcium/Folic Acid/Minerals Tab PO SCH (09:29)
[2022-08-13] MEDS: Cyclobenzaprine 10 MG Tab PO SCH ×3 (09:29→21:17)
[2022-08-13] MEDS: Pantoprazole 40 MG Tab.CR PO SCH (09:30)
[2022-08-13] MEDS: Tamsulosin 0.4 MG Cap.ER PO SCH (09:30)
[2022-08-13] MEDS: Fish Oil/Omega-3 Fatty Acids 1 Gm Cap PO SCH ×2 (09:30→17:11)
[2022-08-13] MEDS: Insulin Glarg,Human.Rec.Analog 100 Unit/ML SUBCUT SCH (09:31)
[2022-08-13] MEDS: Polyethylene Glycol 3350 Powder 17 GM Packet PO SCH (09:31)
[2022-08-13] MEDS: Furosemide 40 MG Tab PO SCH ×2 (09:31→17:10)
[2022-08-13] MEDS: amLODIPine 10 MG Tab PO SCH (09:31)
[2022-08-13] MEDS: Pregabalin 25 MG Cap PO SCH (21:17)
[2022-08-14] MEDS: Acetaminophen 500 MG Tab PO SCH ×3 (01:26→17:26)
[2022-08-14] MEDS: oxyCODONE 5 MG Tab PO PRN ×4 (01:27→20:04)
[2022-08-14] MEDS: Levothyroxine 150 MCG Tab PO SCH (06:37)
[2022-08-14] MEDS: Tiotropium Bromide 4 GM Inhalation Spray (2.5mcg/1 dose; 10 doses) INH SCH (06:38)
[2022-08-14] MEDS: Nicotine 21 MG/24 Hr Patch TOP SCH (09:03)
[2022-08-14] MEDS: Polyethylene Glycol 3350 Powder 17 GM Packet PO SCH (09:05)
[2022-08-14] MEDS: amLODIPine 10 MG Tab PO SCH (09:06)
[2022-08-14] MEDS: Multivitamins with Iron/Calcium/Folic Acid/Minerals Tab PO SCH (09:06)
[2022-08-14] MEDS: Cyclobenzaprine 10 MG Tab PO SCH ×3 (09:07→20:05)
[2022-08-14] MEDS: Pantoprazole 40 MG Tab.CR PO SCH (09:07)
[2022-08-14] MEDS: Tamsulosin 0.4 MG Cap.ER PO SCH (09:07)
[2022-08-14] MEDS: Furosemide 40 MG Tab PO SCH ×2 (09:08→17:26)
[2022-08-14] MEDS: metFORMIN 500 MG Tab PO SCH ×2 (09:08→17:25)
[2022-08-14] MEDS: Fish Oil/Omega-3 Fatty Acids 1 Gm Cap PO SCH ×2 (09:08→17:26)
[2022-08-14] MEDS: Aspirin 81 MG Tab.EC PO SCH (09:13)
[2022-08-14] MEDS: Hydrocortisone 20 MG Tab PO SCH (09:16)
[2022-08-14] MEDS: Insulin Glarg,Human.Rec.Analog 100 Unit/ML SUBCUT SCH (09:22)
[2022-08-14] MEDS: Pregabalin 25 MG Cap PO SCH (20:04)
[2022-08-15] MEDS: oxyCODONE 5 MG Tab PO PRN ×5 (01:37→22:35)
[2022-08-15] MEDS: Acetaminophen 500 MG Tab PO SCH ×3 (01:37→17:50)
[2022-08-15] MEDS: Tiotropium Bromide 4 GM Inhalation Spray (2.5mcg/1 dose; 10 doses) INH SCH (06:02)
[2022-08-15] MEDS: Levothyroxine 150 MCG Tab PO SCH (06:03)
[2022-08-15 07:08] LABS: ANION GAP 9.6 mmol/L (5-15)
[2022-08-15] MEDS: amLODIPine 10 MG Tab PO SCH (08:26)
[2022-08-15] MEDS: Hydrocortisone 20 MG Tab PO SCH (08:26)
[2022-08-15] MEDS: Cyclobenzaprine 10 MG Tab PO SCH ×3 (08:27→22:34)
[2022-08-15] MEDS: metFORMIN 500 MG Tab PO SCH ×2 (08:27→17:50)
[2022-08-15] MEDS: Pantoprazole 40 MG Tab.CR PO SCH (08:27)
[2022-08-15] MEDS: Aspirin 81 MG Tab.EC PO SCH (08:27)
[2022-08-15] MEDS: Tamsulosin 0.4 MG Cap.ER PO SCH (08:27)
[2022-08-15] MEDS: Furosemide 40 MG Tab PO SCH ×2 (08:27→17:51)
[2022-08-15] MEDS: Fish Oil/Omega-3 Fatty Acids 1 Gm Cap PO SCH ×2 (08:28→17:51)
[2022-08-15] MEDS: Multivitamins with Iron/Calcium/Folic Acid/Minerals Tab PO SCH (08:28)
[2022-08-15] MEDS: Polyethylene Glycol 3350 Powder 17 GM Packet PO SCH (08:29)
[2022-08-15] MEDS: Nicotine 21 MG/24 Hr Patch TOP SCH (08:31)
[2022-08-15] MEDS: Insulin Glarg,Human.Rec.Analog 100 Unit/ML SUBCUT SCH (08:38)
[2022-08-15] MEDS: Pregabalin 25 MG Cap PO SCH (22:35)
[2022-08-16] MEDS: Acetaminophen 500 MG Tab PO SCH ×3 (01:41→17:49)
[2022-08-16] MEDS: Levothyroxine 150 MCG Tab PO SCH (06:25)
[2022-08-16] MEDS: oxyCODONE 5 MG Tab PO PRN ×3 (06:25→20:04)
[2022-08-16] MEDS: Tiotropium Bromide 4 GM Inhalation Spray (2.5mcg/1 dose; 10 doses) INH SCH (06:27)
[2022-08-16] MEDS: Nicotine 21 MG/24 Hr Patch TOP SCH (08:35)
[2022-08-16] MEDS: Fish Oil/Omega-3 Fatty Acids 1 Gm Cap PO SCH ×2 (08:36→17:48)
[2022-08-16] MEDS: Pantoprazole 40 MG Tab.CR PO SCH (08:36)
[2022-08-16] MEDS: Tamsulosin 0.4 MG Cap.ER PO SCH (08:36)
[2022-08-16] MEDS: Hydrocortisone 20 MG Tab PO SCH (08:36)
[2022-08-16] MEDS: metFORMIN 500 MG Tab PO SCH ×2 (08:37→17:48)
[2022-08-16] MEDS: Multivitamins with Iron/Calcium/Folic Acid/Minerals Tab PO SCH (08:40)
[2022-08-16] MEDS: amLODIPine 10 MG Tab PO SCH (08:40)
[2022-08-16] MEDS: Aspirin 81 MG Tab.EC PO SCH (08:41)
[2022-08-16] MEDS: Cyclobenzaprine 10 MG Tab PO SCH ×2 (08:41→20:02)
[2022-08-16] MEDS: Furosemide 40 MG Tab PO SCH ×2 (08:42→17:48)
[2022-08-16] MEDS: Insulin Glarg,Human.Rec.Analog 100 Unit/ML SUBCUT SCH (08:44)
[2022-08-16] MEDS: Diclofenac Sodium 1% Gel 100 GM Tube TOP SCH ×4 (09:29→20:04)
[2022-08-16] MEDS ORDERED: Cyclobenzaprine 10 MG Tab PO PRN (10:52)
[2022-08-16] MEDS: Honey 44 ML Gel TP SCH (13:30)
[2022-08-16] MEDS: Pregabalin 25 MG Cap PO SCH (20:02)
[2022-08-17] MEDS: Acetaminophen 500 MG Tab PO SCH ×4 (00:17→23:41)
[2022-08-17] MEDS: oxyCODONE 5 MG Tab PO PRN ×4 (00:18→20:25)
[2022-08-17] MEDS: Levothyroxine 150 MCG Tab PO SCH (06:21)
[2022-08-17] MEDS: Tiotropium Bromide 4 GM Inhalation Spray (2.5mcg/1 dose; 10 doses) INH SCH (06:21)
[2022-08-17] MEDS: Fish Oil/Omega-3 Fatty Acids 1 Gm Cap PO SCH ×2 (09:11→17:26)
[2022-08-17] MEDS: Insulin Glarg,Human.Rec.Analog 100 Unit/ML SUBCUT SCH (09:11)
[2022-08-17] MEDS: Tamsulosin 0.4 MG Cap.ER PO SCH (09:11)
[2022-08-17] MEDS: Furosemide 40 MG Tab PO SCH ×2 (09:12→17:31)
[2022-08-17] MEDS: metFORMIN 500 MG Tab PO SCH ×2 (09:12→17:27)
[2022-08-17] MEDS: Hydrocortisone 20 MG Tab PO SCH (09:12)
[2022-08-17] MEDS: Pantoprazole 40 MG Tab.CR PO SCH (09:12)
[2022-08-17] MEDS: Multivitamins with Iron/Calcium/Folic Acid/Minerals Tab PO SCH (09:12)
[2022-08-17] MEDS: amLODIPine 10 MG Tab PO SCH (09:13)
[2022-08-17] MEDS: Aspirin 81 MG Tab.EC PO SCH (09:13)
[2022-08-17] MEDS: Cyclobenzaprine 10 MG Tab PO SCH ×2 (09:14→20:14)
[2022-08-17] MEDS: Nicotine 21 MG/24 Hr Patch TOP SCH (09:15)
[2022-08-17] MEDS: Diclofenac Sodium 1% Gel 100 GM Tube TOP SCH ×4 (09:18→20:17)
[2022-08-17] MEDS: Honey 44 ML Gel TP SCH (09:18)
[2022-08-17] MEDS: Pregabalin 25 MG Cap PO SCH (20:14)
[2022-08-18] MEDS: Acetaminophen 500 MG Tab PO SCH ×3 (01:19→17:13)
[2022-08-18] MEDS: Tiotropium Bromide 4 GM Inhalation Spray (2.5mcg/1 dose; 10 doses) INH SCH (06:03)
[2022-08-18] MEDS: Levothyroxine 150 MCG Tab PO SCH (06:03)
[2022-08-18] MEDS: oxyCODONE 5 MG Tab PO PRN ×3 (06:05→17:14)
[2022-08-18] MEDS: amLODIPine 10 MG Tab PO SCH (08:21)
[2022-08-18] MEDS: Cyclobenzaprine 10 MG Tab PO SCH ×2 (08:21→20:19)
[2022-08-18] MEDS: Aspirin 81 MG Tab.EC PO SCH (08:21)
[2022-08-18] MEDS: Hydrocortisone 20 MG Tab PO SCH (08:21)
[2022-08-18] MEDS: Pantoprazole 40 MG Tab.CR PO SCH (08:22)
[2022-08-18] MEDS: Furosemide 40 MG Tab PO SCH ×2 (08:23→17:15)
[2022-08-18] MEDS: Tamsulosin 0.4 MG Cap.ER PO SCH (08:23)
[2022-08-18] MEDS: Fish Oil/Omega-3 Fatty Acids 1 Gm Cap PO SCH ×2 (08:23→17:15)
[2022-08-18] MEDS: metFORMIN 500 MG Tab PO SCH ×2 (08:23→17:15)
[2022-08-18] MEDS: Nicotine 21 MG/24 Hr Patch TOP SCH (08:24)
[2022-08-18] MEDS: Insulin Glarg,Human.Rec.Analog 100 Unit/ML SUBCUT SCH (08:25)
[2022-08-18] MEDS: Honey 44 ML Gel TP SCH (08:26)
[2022-08-18] MEDS: Diclofenac Sodium 1% Gel 100 GM Tube TOP SCH ×4 (08:27→20:20)
[2022-08-18] MEDS: Multivitamins with Iron/Calcium/Folic Acid/Minerals Tab PO SCH (08:43)
[2022-08-18] MEDS: Pregabalin 25 MG Cap PO SCH (20:19)
[2022-08-19] MEDS: oxyCODONE 5 MG Tab PO PRN ×5 (01:34→20:02)
[2022-08-19] MEDS: Acetaminophen 500 MG Tab PO SCH ×3 (01:34→17:19)
[2022-08-19] MEDS: Levothyroxine 150 MCG Tab PO SCH (06:14)
[2022-08-19] MEDS: Tiotropium Bromide 4 GM Inhalation Spray (2.5mcg/1 dose; 10 doses) INH SCH (06:28)
[2022-08-19] MEDS: Cyclobenzaprine 10 MG Tab PO SCH ×2 (08:50→20:01)
[2022-08-19] MEDS: Fish Oil/Omega-3 Fatty Acids 1 Gm Cap PO SCH ×2 (08:51→17:19)
[2022-08-19] MEDS: Multivitamins with Iron/Calcium/Folic Acid/Minerals Tab PO SCH (08:51)
[2022-08-19] MEDS: amLODIPine 10 MG Tab PO SCH (08:52)
[2022-08-19] MEDS: Aspirin 81 MG Tab.EC PO SCH (08:52)
[2022-08-19] MEDS: metFORMIN 500 MG Tab PO SCH ×2 (08:52→17:19)
[2022-08-19] MEDS: Tamsulosin 0.4 MG Cap.ER PO SCH (08:52)
[2022-08-19] MEDS: Pantoprazole 40 MG Tab.CR PO SCH (08:52)
[2022-08-19] MEDS: Hydrocortisone 20 MG Tab PO SCH (08:53)
[2022-08-19] MEDS: Nicotine 21 MG/24 Hr Patch TOP SCH (08:53)
[2022-08-19] MEDS: Furosemide 40 MG Tab PO SCH ×2 (08:53→17:20)
[2022-08-19] MEDS: Honey 44 ML Gel TP SCH (08:54)
[2022-08-19] MEDS: Diclofenac Sodium 1% Gel 100 GM Tube TOP SCH ×4 (08:54→20:03)
[2022-08-19] MEDS: Insulin Glarg,Human.Rec.Analog 100 Unit/ML SUBCUT SCH (08:55)
[2022-08-19] MEDS: Pregabalin 25 MG Cap PO SCH (20:01)
[2022-08-20] MEDS: Acetaminophen 500 MG Tab PO SCH ×3 (00:23→17:30)
[2022-08-20] MEDS: oxyCODONE 5 MG Tab PO PRN ×5 (00:24→20:06)
[2022-08-20] MEDS: Levothyroxine 150 MCG Tab PO SCH (06:15)
[2022-08-20] MEDS: Tiotropium Bromide 4 GM Inhalation Spray (2.5mcg/1 dose; 10 doses) INH SCH (06:16)
[2022-08-20] MEDS: Hydrocortisone 20 MG Tab PO SCH (09:47)
[2022-08-20] MEDS: Fish Oil/Omega-3 Fatty Acids 1 Gm Cap PO SCH ×2 (09:47→17:30)
[2022-08-20] MEDS: Pantoprazole 40 MG Tab.CR PO SCH (09:47)
[2022-08-20] MEDS: Nicotine 21 MG/24 Hr Patch TOP SCH (09:47)
[2022-08-20] MEDS: Aspirin 81 MG Tab.EC PO SCH (09:47)
[2022-08-20] MEDS: Furosemide 40 MG Tab PO SCH ×2 (09:47→17:31)
[2022-08-20] MEDS: amLODIPine 10 MG Tab PO SCH (09:48)
[2022-08-20] MEDS: metFORMIN 500 MG Tab PO SCH ×2 (09:48→17:30)
[2022-08-20] MEDS: Multivitamins with Iron/Calcium/Folic Acid/Minerals Tab PO SCH (09:48)
[2022-08-20] MEDS: Cyclobenzaprine 10 MG Tab PO SCH ×2 (09:49→20:05)
[2022-08-20] MEDS: Insulin Glarg,Human.Rec.Analog 100 Unit/ML SUBCUT SCH (09:50)
[2022-08-20] MEDS: Tamsulosin 0.4 MG Cap.ER PO SCH (09:50)
[2022-08-20] MEDS: Honey 44 ML Gel TP SCH (09:51)
[2022-08-20] MEDS: Diclofenac Sodium 1% Gel 100 GM Tube TOP SCH ×4 (09:52→20:07)
[2022-08-20] MEDS: Pregabalin 25 MG Cap PO SCH (20:06)
[2022-08-21] MEDS: Acetaminophen 500 MG Tab PO SCH ×4 (00:34→23:34)
[2022-08-21] MEDS: oxyCODONE 5 MG Tab PO PRN ×5 (03:32→23:31)
[2022-08-21] MEDS: Levothyroxine 150 MCG Tab PO SCH (06:34)
[2022-08-21] MEDS: Tiotropium Bromide 4 GM Inhalation Spray (2.5mcg/1 dose; 10 doses) INH SCH (06:34)
[2022-08-21] MEDS: Diclofenac Sodium 1% Gel 100 GM Tube TOP SCH ×4 (08:24→22:45)
[2022-08-21] MEDS: Honey 44 ML Gel TP SCH (08:24)
[2022-08-21] MEDS: Cyclobenzaprine 10 MG Tab PO SCH ×2 (08:25→20:24)
[2022-08-21] MEDS: Multivitamins with Iron/Calcium/Folic Acid/Minerals Tab PO SCH (08:25)
[2022-08-21] MEDS: Furosemide 40 MG Tab PO SCH ×2 (08:26→17:12)
[2022-08-21] MEDS: Fish Oil/Omega-3 Fatty Acids 1 Gm Cap PO SCH ×2 (08:26→17:12)
[2022-08-21] MEDS: metFORMIN 500 MG Tab PO SCH ×2 (08:26→17:12)
[2022-08-21] MEDS: amLODIPine 10 MG Tab PO SCH (08:26)
[2022-08-21] MEDS: Hydrocortisone 20 MG Tab PO SCH (08:26)
[2022-08-21] MEDS: Aspirin 81 MG Tab.EC PO SCH (08:27)
[2022-08-21] MEDS: Pantoprazole 40 MG Tab.CR PO SCH (08:27)
[2022-08-21] MEDS: Tamsulosin 0.4 MG Cap.ER PO SCH (08:27)
[2022-08-21] MEDS: Nicotine 21 MG/24 Hr Patch TOP SCH (08:27)
[2022-08-21] MEDS: Insulin Glarg,Human.Rec.Analog 100 Unit/ML SUBCUT SCH (08:29)
[2022-08-21] MEDS: Pregabalin 25 MG Cap PO SCH (20:24)
[2022-08-22] MEDS: Acetaminophen 500 MG Tab PO SCH ×3 (02:14→18:54)
[2022-08-22] MEDS: Levothyroxine 150 MCG Tab PO SCH (06:13)
[2022-08-22] MEDS: oxyCODONE 5 MG Tab PO PRN ×4 (06:13→21:46)
[2022-08-22] MEDS: Tiotropium Bromide 4 GM Inhalation Spray (2.5mcg/1 dose; 10 doses) INH SCH (06:17)
[2022-08-22 07:21] LABS: ANION GAP 12.6 mmol/L (5-15)
[2022-08-22] MEDS: metFORMIN 500 MG Tab PO SCH ×2 (08:31→18:55)
[2022-08-22] MEDS: Cyclobenzaprine 10 MG Tab PO SCH ×2 (08:32→21:46)
[2022-08-22] MEDS: Fish Oil/Omega-3 Fatty Acids 1 Gm Cap PO SCH ×2 (08:33→18:55)
[2022-08-22] MEDS: Tamsulosin 0.4 MG Cap.ER PO SCH (08:34)
[2022-08-22] MEDS: Hydrocortisone 20 MG Tab PO SCH (08:34)
[2022-08-22] MEDS: Aspirin 81 MG Tab.EC PO SCH (08:34)
[2022-08-22] MEDS: amLODIPine 10 MG Tab PO SCH (08:34)
[2022-08-22] MEDS: Multivitamins with Iron/Calcium/Folic Acid/Minerals Tab PO SCH (08:34)
[2022-08-22] MEDS: Pantoprazole 40 MG Tab.CR PO SCH (08:34)
[2022-08-22] MEDS: Furosemide 40 MG Tab PO SCH ×2 (08:34→18:55)
[2022-08-22] MEDS: Nicotine 21 MG/24 Hr Patch TOP SCH (08:35)
[2022-08-22] MEDS: Insulin Glarg,Human.Rec.Analog 100 Unit/ML SUBCUT SCH (08:38)
[2022-08-22] MEDS: Honey 44 ML Gel TP SCH (08:40)
[2022-08-22] MEDS: Diclofenac Sodium 1% Gel 100 GM Tube TOP SCH ×4 (08:41→21:48)
[2022-08-22] MEDS: Pregabalin 25 MG Cap PO SCH (21:45)
[2022-08-23] MEDS: oxyCODONE 5 MG Tab PO PRN ×3 (06:32→23:40)
[2022-08-23] MEDS: Levothyroxine 150 MCG Tab PO SCH (06:32)
[2022-08-23] MEDS: Tiotropium Bromide 4 GM Inhalation Spray (2.5mcg/1 dose; 10 doses) INH SCH (06:34)
[2022-08-23] MEDS: Acetaminophen 500 MG Tab PO SCH ×4 (06:47→23:38)
[2022-08-23] MEDS: Nicotine 21 MG/24 Hr Patch TOP SCH (09:04)
[2022-08-23] MEDS: metFORMIN 500 MG Tab PO SCH ×2 (09:05→17:07)
[2022-08-23] MEDS: Hydrocortisone 20 MG Tab PO SCH (09:05)
[2022-08-23] MEDS: Pantoprazole 40 MG Tab.CR PO SCH (09:05)
[2022-08-23] MEDS: amLODIPine 10 MG Tab PO SCH (09:05)
[2022-08-23] MEDS: Multivitamins with Iron/Calcium/Folic Acid/Minerals Tab PO SCH (09:05)
[2022-08-23] MEDS: Fish Oil/Omega-3 Fatty Acids 1 Gm Cap PO SCH ×2 (09:06→17:06)
[2022-08-23] MEDS: Tamsulosin 0.4 MG Cap.ER PO SCH (09:06)
[2022-08-23] MEDS: Furosemide 40 MG Tab PO SCH ×2 (09:06→17:07)
[2022-08-23] MEDS: Aspirin 81 MG Tab.EC PO SCH (09:07)
[2022-08-23] MEDS: Cyclobenzaprine 10 MG Tab PO SCH ×2 (09:07→20:32)
[2022-08-23] MEDS: Insulin Glarg,Human.Rec.Analog 100 Unit/ML SUBCUT SCH (09:12)
[2022-08-23] MEDS: Diclofenac Sodium 1% Gel 100 GM Tube TOP SCH ×4 (09:14→20:39)
[2022-08-23] MEDS: Honey 44 ML Gel TP SCH (09:14)
[2022-08-23] MEDS: Pregabalin 25 MG Cap PO SCH (20:32)
[2022-08-24] MEDS: Acetaminophen 500 MG Tab PO SCH ×4 (01:14→23:59)
[2022-08-24] MEDS: oxyCODONE 5 MG Tab PO PRN ×5 (06:15→23:58)
[2022-08-24] MEDS: Levothyroxine 150 MCG Tab PO SCH (06:16)
[2022-08-24] MEDS: Tiotropium Bromide 4 GM Inhalation Spray (2.5mcg/1 dose; 10 doses) INH SCH (06:16)
[2022-08-24] MEDS: Tamsulosin 0.4 MG Cap.ER PO SCH (09:57)
[2022-08-24] MEDS: Furosemide 40 MG Tab PO SCH ×2 (09:57→18:26)
[2022-08-24] MEDS: Aspirin 81 MG Tab.EC PO SCH (09:57)
[2022-08-24] MEDS: Fish Oil/Omega-3 Fatty Acids 1 Gm Cap PO SCH ×2 (09:57→18:25)
[2022-08-24] MEDS: Hydrocortisone 20 MG Tab PO SCH (09:57)
[2022-08-24] MEDS: metFORMIN 500 MG Tab PO SCH ×2 (09:58→18:26)
[2022-08-24] MEDS: Cyclobenzaprine 10 MG Tab PO SCH ×2 (09:58→20:08)
[2022-08-24] MEDS: Pantoprazole 40 MG Tab.CR PO SCH (09:59)
[2022-08-24] MEDS: Nicotine 21 MG/24 Hr Patch TOP SCH (10:00)
[2022-08-24] MEDS: amLODIPine 10 MG Tab PO SCH (10:03)
[2022-08-24] MEDS: Insulin Glarg,Human.Rec.Analog 100 Unit/ML SUBCUT SCH (10:04)
[2022-08-24] MEDS: Diclofenac Sodium 1% Gel 100 GM Tube TOP SCH ×4 (10:05→20:07)
[2022-08-24] MEDS: Honey 44 ML Gel TP SCH (10:06)
[2022-08-24] MEDS: Multivitamin Tab PO SCH (18:26)
[2022-08-24] MEDS: Pregabalin 25 MG Cap PO SCH (20:08)
[2022-08-24] MEDS: Multivitamins with Iron/Calcium/Folic Acid/Minerals Tab PO SCH (21:01)
[2022-08-25] MEDS: Levothyroxine 150 MCG Tab PO SCH (06:32)
[2022-08-25] MEDS: Tiotropium Bromide 4 GM Inhalation Spray (2.5mcg/1 dose; 10 doses) INH SCH (06:32)
[2022-08-25] MEDS: oxyCODONE 5 MG Tab PO PRN ×4 (06:34→23:18)
[2022-08-25] MEDS: Nicotine 21 MG/24 Hr Patch TOP SCH (08:59)
[2022-08-25] MEDS: Multivitamin Tab PO SCH (09:00)
[2022-08-25] MEDS: amLODIPine 10 MG Tab PO SCH (09:00)
[2022-08-25] MEDS: Cyclobenzaprine 10 MG Tab PO SCH ×2 (09:00→20:28)
[2022-08-25] MEDS: Hydrocortisone 20 MG Tab PO SCH (09:00)
[2022-08-25] MEDS: Fish Oil/Omega-3 Fatty Acids 1 Gm Cap PO SCH ×2 (09:00→18:13)
[2022-08-25] MEDS: Tamsulosin 0.4 MG Cap.ER PO SCH (09:00)
[2022-08-25] MEDS: Acetaminophen 500 MG Tab PO SCH ×3 (09:03→23:19)
[2022-08-25] MEDS: metFORMIN 500 MG Tab PO SCH ×2 (09:03→18:13)
[2022-08-25] MEDS: Pantoprazole 40 MG Tab.CR PO SCH (09:03)
[2022-08-25] MEDS: Aspirin 81 MG Tab.EC PO SCH (09:03)
[2022-08-25] MEDS: Furosemide 40 MG Tab PO SCH ×2 (09:03→18:13)
[2022-08-25] MEDS: Diclofenac Sodium 1% Gel 100 GM Tube TOP SCH ×4 (09:04→20:30)
[2022-08-25] MEDS: Insulin Glarg,Human.Rec.Analog 100 Unit/ML SUBCUT SCH (09:10)
[2022-08-25] MEDS: Honey 44 ML Gel TP SCH (09:14)
[2022-08-25] MEDS: Pregabalin 25 MG Cap PO SCH (20:29)
[2022-08-26] MEDS: Acetaminophen 500 MG Tab PO SCH ×3 (00:02→17:57)
[2022-08-26] MEDS: Levothyroxine 150 MCG Tab PO SCH (06:29)
[2022-08-26] MEDS: Tiotropium Bromide 4 GM Inhalation Spray (2.5mcg/1 dose; 10 doses) INH SCH (06:29)
[2022-08-26] MEDS: oxyCODONE 5 MG Tab PO PRN ×4 (06:30→22:08)
[2022-08-26] MEDS: Aspirin 81 MG Tab.EC PO SCH (09:31)
[2022-08-26] MEDS: Furosemide 40 MG Tab PO SCH ×2 (09:31→17:57)
[2022-08-26] MEDS: Multivitamin Tab PO SCH (09:31)
[2022-08-26] MEDS: Fish Oil/Omega-3 Fatty Acids 1 Gm Cap PO SCH ×2 (09:32→17:57)
[2022-08-26] MEDS: metFORMIN 500 MG Tab PO SCH ×2 (09:32→17:57)
[2022-08-26] MEDS: Tamsulosin 0.4 MG Cap.ER PO SCH (09:33)
[2022-08-26] MEDS: Pantoprazole 40 MG Tab.CR PO SCH (09:33)
[2022-08-26] MEDS: Hydrocortisone 20 MG Tab PO SCH (09:33)
[2022-08-26] MEDS: Cyclobenzaprine 10 MG Tab PO SCH ×2 (09:33→22:09)
[2022-08-26] MEDS: amLODIPine 10 MG Tab PO SCH (09:36)
[2022-08-26] MEDS: Nicotine 21 MG/24 Hr Patch TOP SCH (09:37)
[2022-08-26] MEDS: Diclofenac Sodium 1% Gel 100 GM Tube TOP SCH ×3 (09:37→18:00)
[2022-08-26] MEDS: Insulin Glarg,Human.Rec.Analog 100 Unit/ML SUBCUT SCH (09:39)
[2022-08-26] MEDS: Honey 44 ML Gel TP SCH (09:47)
[2022-08-26] MEDS: Pregabalin 25 MG Cap PO SCH (22:09)
[2022-08-27] MEDS: Diclofenac Sodium 1% Gel 100 GM Tube TOP SCH ×5 (00:30→20:05)
[2022-08-27] MEDS: Acetaminophen 500 MG Tab PO SCH ×3 (03:21→17:14)
[2022-08-27] MEDS: oxyCODONE 5 MG Tab PO PRN ×4 (03:22→20:03)
[2022-08-27] MEDS: Levothyroxine 150 MCG Tab PO SCH (06:46)
[2022-08-27] MEDS: Tiotropium Bromide 4 GM Inhalation Spray (2.5mcg/1 dose; 10 doses) INH SCH (06:46)
[2022-08-27] MEDS: metFORMIN 500 MG Tab PO SCH ×2 (09:28→17:14)
[2022-08-27] MEDS: Fish Oil/Omega-3 Fatty Acids 1 Gm Cap PO SCH ×2 (09:28→17:14)
[2022-08-27] MEDS: Cyclobenzaprine 10 MG Tab PO SCH ×2 (09:28→20:04)
[2022-08-27] MEDS: Hydrocortisone 20 MG Tab PO SCH (09:28)
[2022-08-27] MEDS: Multivitamin Tab PO SCH (09:28)
[2022-08-27] MEDS: Aspirin 81 MG Tab.EC PO SCH (09:28)
[2022-08-27] MEDS: Tamsulosin 0.4 MG Cap.ER PO SCH (09:28)
[2022-08-27] MEDS: Furosemide 40 MG Tab PO SCH ×2 (09:29→17:14)
[2022-08-27] MEDS: Pantoprazole 40 MG Tab.CR PO SCH (09:29)
[2022-08-27] MEDS: amLODIPine 10 MG Tab PO SCH (09:30)
[2022-08-27] MEDS: Nicotine 21 MG/24 Hr Patch TOP SCH (09:30)
[2022-08-27] MEDS: Honey 44 ML Gel TP SCH (09:35)
[2022-08-27] MEDS: Insulin Glarg,Human.Rec.Analog 100 Unit/ML SUBCUT SCH (09:43)
[2022-08-27] MEDS: Pregabalin 25 MG Cap PO SCH (20:05)
[2022-08-28] MEDS: oxyCODONE 5 MG Tab PO PRN ×5 (01:36→20:09)
[2022-08-28] MEDS: Acetaminophen 500 MG Tab PO SCH ×3 (01:37→17:52)
[2022-08-28] MEDS: Levothyroxine 150 MCG Tab PO SCH (06:28)
[2022-08-28] MEDS: Tiotropium Bromide 4 GM Inhalation Spray (2.5mcg/1 dose; 10 doses) INH SCH (06:29)
[2022-08-28] MEDS: Hydrocortisone 20 MG Tab PO SCH (08:06)
[2022-08-28] MEDS: Pantoprazole 40 MG Tab.CR PO SCH (08:07)
[2022-08-28] MEDS: Fish Oil/Omega-3 Fatty Acids 1 Gm Cap PO SCH ×2 (08:07→17:51)
[2022-08-28] MEDS: Aspirin 81 MG Tab.EC PO SCH (08:08)
[2022-08-28] MEDS: Multivitamin Tab PO SCH (08:08)
[2022-08-28] MEDS: Tamsulosin 0.4 MG Cap.ER PO SCH (08:08)
[2022-08-28] MEDS: amLODIPine 10 MG Tab PO SCH (08:09)
[2022-08-28] MEDS: metFORMIN 500 MG Tab PO SCH ×2 (08:09→17:51)
[2022-08-28] MEDS: Furosemide 40 MG Tab PO SCH ×2 (08:09→17:52)
[2022-08-28] MEDS: Cyclobenzaprine 10 MG Tab PO SCH ×2 (08:13→20:10)
[2022-08-28] MEDS: Nicotine 21 MG/24 Hr Patch TOP SCH (08:15)
[2022-08-28] MEDS: Insulin Glarg,Human.Rec.Analog 100 Unit/ML SUBCUT SCH (08:16)
[2022-08-28] MEDS: Honey 44 ML Gel TP SCH (09:00)
[2022-08-28] MEDS: Diclofenac Sodium 1% Gel 100 GM Tube TOP SCH ×4 (10:48→20:11)
[2022-08-28] MEDS: Pregabalin 25 MG Cap PO SCH (20:09)
[2022-08-29] MEDS: Acetaminophen 500 MG Tab PO SCH ×3 (00:24→17:12)
[2022-08-29] MEDS: oxyCODONE 5 MG Tab PO PRN ×5 (00:25→21:41)
[2022-08-29] MEDS: Tiotropium Bromide 4 GM Inhalation Spray (2.5mcg/1 dose; 10 doses) INH SCH (06:23)
[2022-08-29] MEDS: Levothyroxine 150 MCG Tab PO SCH (06:23)
[2022-08-29 06:56] LABS: ANION GAP 10.6 mmol/L (5-15)
[2022-08-29] MEDS: Nicotine 21 MG/24 Hr Patch TOP SCH (08:27)
[2022-08-29] MEDS: Cyclobenzaprine 10 MG Tab PO SCH ×2 (08:28→20:01)
[2022-08-29] MEDS: Multivitamin Tab PO SCH (08:28)
[2022-08-29] MEDS: Pantoprazole 40 MG Tab.CR PO SCH (08:28)
[2022-08-29] MEDS: Aspirin 81 MG Tab.EC PO SCH (08:28)
[2022-08-29] MEDS: Fish Oil/Omega-3 Fatty Acids 1 Gm Cap PO SCH ×2 (08:29→17:12)
[2022-08-29] MEDS: Furosemide 40 MG Tab PO SCH ×2 (08:29→17:13)
[2022-08-29] MEDS: metFORMIN 500 MG Tab PO SCH ×2 (08:29→17:12)
[2022-08-29] MEDS: Tamsulosin 0.4 MG Cap.ER PO SCH (08:29)
[2022-08-29] MEDS: Honey 44 ML Gel TP SCH (08:30)
[2022-08-29] MEDS: Diclofenac Sodium 1% Gel 100 GM Tube TOP SCH ×4 (08:30→20:08)
[2022-08-29] MEDS: Hydrocortisone 20 MG Tab PO SCH (08:30)
[2022-08-29] MEDS: Insulin Glarg,Human.Rec.Analog 100 Unit/ML SUBCUT SCH (08:31)
[2022-08-29] MEDS: amLODIPine 10 MG Tab PO SCH (08:33)
[2022-08-29] MEDS: Pregabalin 25 MG Cap PO SCH (20:04)
[2022-08-30] MEDS: Acetaminophen 500 MG Tab PO SCH ×3 (00:59→17:21)
[2022-08-30] MEDS: oxyCODONE 5 MG Tab PO PRN ×5 (02:03→21:58)
[2022-08-30] MEDS: Levothyroxine 150 MCG Tab PO SCH (06:14)
[2022-08-30] MEDS: Tiotropium Bromide 4 GM Inhalation Spray (2.5mcg/1 dose; 10 doses) INH SCH (06:16)
[2022-08-30] MEDS: Hydrocortisone 20 MG Tab PO SCH (08:12)
[2022-08-30] MEDS: Furosemide 40 MG Tab PO SCH ×2 (08:13→17:20)
[2022-08-30] MEDS: Cyclobenzaprine 10 MG Tab PO SCH ×2 (08:13→20:39)
[2022-08-30] MEDS: Multivitamin Tab PO SCH (08:13)
[2022-08-30] MEDS: Aspirin 81 MG Tab.EC PO SCH (08:13)
[2022-08-30] MEDS: amLODIPine 10 MG Tab PO SCH (08:13)
[2022-08-30] MEDS: Fish Oil/Omega-3 Fatty Acids 1 Gm Cap PO SCH ×2 (08:13→17:21)
[2022-08-30] MEDS: Tamsulosin 0.4 MG Cap.ER PO SCH (08:13)
[2022-08-30] MEDS: Pantoprazole 40 MG Tab.CR PO SCH (08:13)
[2022-08-30] MEDS: metFORMIN 500 MG Tab PO SCH ×2 (08:13→17:21)
[2022-08-30] MEDS: Nicotine 21 MG/24 Hr Patch TOP SCH (08:15)
[2022-08-30] MEDS: Insulin Glarg,Human.Rec.Analog 100 Unit/ML SUBCUT SCH (08:16)
[2022-08-30] MEDS: Honey 44 ML Gel TP SCH (08:16)
[2022-08-30] MEDS: Diclofenac Sodium 1% Gel 100 GM Tube TOP SCH ×4 (08:16→21:57)
[2022-08-30] MEDS: Pregabalin 25 MG Cap PO SCH (20:41)
[2022-08-31] MEDS: Acetaminophen 500 MG Tab PO SCH ×3 (02:00→18:59)
[2022-08-31] MEDS: oxyCODONE 5 MG Tab PO PRN ×5 (02:13→22:28)
[2022-08-31] MEDS: Levothyroxine 150 MCG Tab PO SCH (06:25)
[2022-08-31] MEDS: Tiotropium Bromide 4 GM Inhalation Spray (2.5mcg/1 dose; 10 doses) INH SCH (06:25)
[2022-08-31] MEDS: Cyclobenzaprine 10 MG Tab PO SCH ×2 (09:28→21:14)
[2022-08-31] MEDS: Pantoprazole 40 MG Tab.CR PO SCH (09:30)
[2022-08-31] MEDS: Multivitamin Tab PO SCH (09:30)
[2022-08-31] MEDS: Aspirin 81 MG Tab.EC PO SCH (09:30)
[2022-08-31] MEDS: Fish Oil/Omega-3 Fatty Acids 1 Gm Cap PO SCH ×2 (09:30→18:59)
[2022-08-31] MEDS: amLODIPine 10 MG Tab PO SCH (09:30)
[2022-08-31] MEDS: Furosemide 40 MG Tab PO SCH ×2 (09:30→19:00)
[2022-08-31] MEDS: metFORMIN 500 MG Tab PO SCH ×2 (09:30→18:59)
[2022-08-31] MEDS: Hydrocortisone 20 MG Tab PO SCH (09:30)
[2022-08-31] MEDS: Tamsulosin 0.4 MG Cap.ER PO SCH (09:31)
[2022-08-31] MEDS: Nicotine 21 MG/24 Hr Patch TOP SCH (09:31)
[2022-08-31] MEDS: Diclofenac Sodium 1% Gel 100 GM Tube TOP SCH ×3 (09:36→21:13)
[2022-08-31] MEDS: Insulin Glarg,Human.Rec.Analog 100 Unit/ML SUBCUT SCH (09:37)
[2022-08-31] MEDS: Honey 44 ML Gel TP SCH (09:37)
[2022-08-31] MEDS: Polyethylene Glycol 3350 Powder 17 GM Packet PO PRN (14:39)
[2022-08-31] MEDS: Pregabalin 25 MG Cap PO SCH (21:14)
[2022-09-01] MEDS: Acetaminophen 500 MG Tab PO SCH ×3 (01:08→17:29)
[2022-09-01] MEDS: oxyCODONE 5 MG Tab PO PRN ×4 (05:17→22:04)
[2022-09-01] MEDS: Levothyroxine 150 MCG Tab PO SCH (06:34)
[2022-09-01] MEDS: Tiotropium Bromide 4 GM Inhalation Spray (2.5mcg/1 dose; 10 doses) INH SCH (06:34)
[2022-09-01] MEDS: Hydrocortisone 20 MG Tab PO SCH (09:18)
[2022-09-01] MEDS: Tamsulosin 0.4 MG Cap.ER PO SCH (09:18)
[2022-09-01] MEDS: Pantoprazole 40 MG Tab.CR PO SCH (09:19)
[2022-09-01] MEDS: Aspirin 81 MG Tab.EC PO SCH (09:19)
[2022-09-01] MEDS: Multivitamin Tab PO SCH (09:19)
[2022-09-01] MEDS: Fish Oil/Omega-3 Fatty Acids 1 Gm Cap PO SCH ×2 (09:19→17:28)
[2022-09-01] MEDS: Furosemide 40 MG Tab PO SCH ×2 (09:19→17:29)
[2022-09-01] MEDS: Nicotine 21 MG/24 Hr Patch TOP SCH (09:23)
[2022-09-01] MEDS: metFORMIN 500 MG Tab PO SCH ×2 (09:23→17:29)
[2022-09-01] MEDS: amLODIPine 10 MG Tab PO SCH (09:24)
[2022-09-01] MEDS: Insulin Glarg,Human.Rec.Analog 100 Unit/ML SUBCUT SCH (09:25)
[2022-09-01] MEDS: Cyclobenzaprine 10 MG Tab PO SCH ×2 (09:27→20:30)
[2022-09-01] MEDS: Honey 44 ML Gel TP SCH (09:31)
[2022-09-01] MEDS: Diclofenac Sodium 1% Gel 100 GM Tube TOP SCH ×4 (09:32→20:31)
[2022-09-01] MEDS: Polyethylene Glycol 3350 Powder 17 GM Packet PO PRN (09:51)
[2022-09-01] MEDS ORDERED: oxyCODONE 5 MG Tab PO PRN (11:20)
[2022-09-01] MEDS: Pregabalin 25 MG Cap PO SCH (20:31)
[2022-09-02] MEDS: Acetaminophen 500 MG Tab PO SCH ×3 (01:08→18:13)
[2022-09-02] MEDS: oxyCODONE 5 MG Tab PO PRN ×3 (05:41→20:25)
[2022-09-02] MEDS: Levothyroxine 150 MCG Tab PO SCH (06:11)
[2022-09-02] MEDS: Tiotropium Bromide 4 GM Inhalation Spray (2.5mcg/1 dose; 10 doses) INH SCH (06:14)
[2022-09-02] MEDS: Nicotine 21 MG/24 Hr Patch TOP SCH (08:30)
[2022-09-02] MEDS: Furosemide 40 MG Tab PO SCH ×2 (08:33→18:13)
[2022-09-02] MEDS: metFORMIN 500 MG Tab PO SCH ×2 (08:33→18:11)
[2022-09-02] MEDS: Multivitamin Tab PO SCH (08:34)
[2022-09-02] MEDS: Fish Oil/Omega-3 Fatty Acids 1 Gm Cap PO SCH ×2 (08:34→18:12)
[2022-09-02] MEDS: Pantoprazole 40 MG Tab.CR PO SCH (08:34)
[2022-09-02] MEDS: amLODIPine 10 MG Tab PO SCH (08:34)
[2022-09-02] MEDS: Tamsulosin 0.4 MG Cap.ER PO SCH (08:34)
[2022-09-02] MEDS: Aspirin 81 MG Tab.EC PO SCH (08:34)
[2022-09-02] MEDS: Hydrocortisone 20 MG Tab PO SCH (08:34)
[2022-09-02] MEDS: Cyclobenzaprine 10 MG Tab PO SCH ×2 (08:35→20:27)
[2022-09-02] MEDS: Insulin Glarg,Human.Rec.Analog 100 Unit/ML SUBCUT SCH (08:36)
[2022-09-02] MEDS: Honey 44 ML Gel TP SCH (08:43)
[2022-09-02] MEDS: Diclofenac Sodium 1% Gel 100 GM Tube TOP SCH ×4 (08:43→20:28)
[2022-09-02] MEDS: Pregabalin 25 MG Cap PO SCH (20:26)
[2022-09-03] MEDS: Acetaminophen 500 MG Tab PO SCH ×3 (00:35→17:32)
[2022-09-03] MEDS: oxyCODONE 5 MG Tab PO PRN ×3 (06:00→20:22)
[2022-09-03] MEDS: Levothyroxine 150 MCG Tab PO SCH (06:01)
[2022-09-03] MEDS: Tiotropium Bromide 4 GM Inhalation Spray (2.5mcg/1 dose; 10 doses) INH SCH (06:02)
[2022-09-03] MEDS: Nicotine 21 MG/24 Hr Patch TOP SCH (08:14)
[2022-09-03] MEDS: metFORMIN 500 MG Tab PO SCH ×2 (08:16→17:32)
[2022-09-03] MEDS: amLODIPine 10 MG Tab PO SCH (08:16)
[2022-09-03] MEDS: Furosemide 40 MG Tab PO SCH ×2 (08:17→17:33)
[2022-09-03] MEDS: Pantoprazole 40 MG Tab.CR PO SCH (08:17)
[2022-09-03] MEDS: Multivitamin Tab PO SCH (08:17)
[2022-09-03] MEDS: Cyclobenzaprine 10 MG Tab PO SCH ×2 (08:17→20:19)
[2022-09-03] MEDS: Tamsulosin 0.4 MG Cap.ER PO SCH (08:18)
[2022-09-03] MEDS: Hydrocortisone 20 MG Tab PO SCH (08:18)
[2022-09-03] MEDS: Aspirin 81 MG Tab.EC PO SCH (08:18)
[2022-09-03] MEDS: Fish Oil/Omega-3 Fatty Acids 1 Gm Cap PO SCH ×2 (08:18→17:33)
[2022-09-03] MEDS: Insulin Glarg,Human.Rec.Analog 100 Unit/ML SUBCUT SCH (08:19)
[2022-09-03] MEDS: Honey 44 ML Gel TP SCH (08:21)
[2022-09-03] MEDS: Diclofenac Sodium 1% Gel 100 GM Tube TOP SCH ×4 (08:22→20:20)
[2022-09-03] MEDS: Pregabalin 25 MG Cap PO SCH (20:18)
[2022-09-04] MEDS: Acetaminophen 500 MG Tab PO SCH ×3 (00:23→17:29)
[2022-09-04] MEDS: oxyCODONE 5 MG Tab PO PRN ×5 (00:24→22:26)
[2022-09-04] MEDS: Tiotropium Bromide 4 GM Inhalation Spray (2.5mcg/1 dose; 10 doses) INH SCH (06:26)
[2022-09-04] MEDS: Levothyroxine 150 MCG Tab PO SCH (06:27)
[2022-09-04] MEDS: Insulin Glarg,Human.Rec.Analog 100 Unit/ML SUBCUT SCH (08:23)
[2022-09-04] MEDS: metFORMIN 500 MG Tab PO SCH ×2 (08:25→17:29)
[2022-09-04] MEDS: Nicotine 21 MG/24 Hr Patch TOP SCH (08:25)
[2022-09-04] MEDS: Pantoprazole 40 MG Tab.CR PO SCH (08:25)
[2022-09-04] MEDS: Fish Oil/Omega-3 Fatty Acids 1 Gm Cap PO SCH ×2 (08:25→17:30)
[2022-09-04] MEDS: Hydrocortisone 20 MG Tab PO SCH (08:26)
[2022-09-04] MEDS: Multivitamin Tab PO SCH (08:26)
[2022-09-04] MEDS: Aspirin 81 MG Tab.EC PO SCH (08:26)
[2022-09-04] MEDS: Honey 44 ML Gel TP SCH (08:26)
[2022-09-04] MEDS: Tamsulosin 0.4 MG Cap.ER PO SCH (08:26)
[2022-09-04] MEDS: amLODIPine 10 MG Tab PO SCH (08:26)
[2022-09-04] MEDS: Furosemide 40 MG Tab PO SCH ×2 (08:26→17:30)
[2022-09-04] MEDS: Diclofenac Sodium 1% Gel 100 GM Tube TOP SCH ×4 (08:27→20:26)
[2022-09-04] MEDS: Cyclobenzaprine 10 MG Tab PO SCH ×2 (08:27→20:24)
[2022-09-04] MEDS: Pregabalin 25 MG Cap PO SCH (20:24)
[2022-09-05] MEDS: Acetaminophen 500 MG Tab PO SCH ×3 (04:30→18:14)
[2022-09-05] MEDS: Levothyroxine 150 MCG Tab PO SCH ×2 (05:23→06:03)
[2022-09-05] MEDS: oxyCODONE 5 MG Tab PO PRN ×4 (05:23→22:05)
[2022-09-05] MEDS: Tiotropium Bromide 4 GM Inhalation Spray (2.5mcg/1 dose; 10 doses) INH SCH ×2 (05:24→06:03)
[2022-09-05] MEDS: Nicotine 21 MG/24 Hr Patch TOP SCH (08:06)
[2022-09-05] MEDS: Insulin Glarg,Human.Rec.Analog 100 Unit/ML SUBCUT SCH (08:07)
[2022-09-05] MEDS: Aspirin 81 MG Tab.EC PO SCH (08:10)
[2022-09-05] MEDS: Cyclobenzaprine 10 MG Tab PO SCH ×2 (08:10→22:03)
[2022-09-05] MEDS: Pantoprazole 40 MG Tab.CR PO SCH (08:11)
[2022-09-05] MEDS: metFORMIN 500 MG Tab PO SCH ×2 (08:12→18:15)
[2022-09-05] MEDS: Fish Oil/Omega-3 Fatty Acids 1 Gm Cap PO SCH ×2 (08:12→18:15)
[2022-09-05] MEDS: Diclofenac Sodium 1% Gel 100 GM Tube TOP SCH ×4 (08:13→22:09)
[2022-09-05] MEDS: Furosemide 40 MG Tab PO SCH ×2 (08:13→18:16)
[2022-09-05] MEDS: Tamsulosin 0.4 MG Cap.ER PO SCH (08:13)
[2022-09-05] MEDS: Multivitamin Tab PO SCH (08:13)
[2022-09-05] MEDS: amLODIPine 10 MG Tab PO SCH (08:13)
[2022-09-05] MEDS: Hydrocortisone 20 MG Tab PO SCH (08:13)
[2022-09-05] MEDS: Honey 44 ML Gel TP SCH (08:14)
[2022-09-05] MEDS: Pregabalin 25 MG Cap PO SCH (22:05)
[2022-09-06] MEDS: Acetaminophen 500 MG Tab PO SCH ×3 (02:35→18:05)
[2022-09-06] MEDS: oxyCODONE 5 MG Tab PO PRN ×5 (02:36→22:13)
[2022-09-06] MEDS: Levothyroxine 150 MCG Tab PO SCH (06:28)
[2022-09-06] MEDS: Tiotropium Bromide 4 GM Inhalation Spray (2.5mcg/1 dose; 10 doses) INH SCH (08:14)
[2022-09-06] MEDS: Insulin Glarg,Human.Rec.Analog 100 Unit/ML SUBCUT SCH (08:16)
[2022-09-06] MEDS: metFORMIN 500 MG Tab PO SCH ×2 (08:18→18:04)
[2022-09-06] MEDS: Cyclobenzaprine 10 MG Tab PO SCH ×2 (08:19→22:14)
[2022-09-06] MEDS: Hydrocortisone 20 MG Tab PO SCH (08:19)
[2022-09-06] MEDS: Tamsulosin 0.4 MG Cap.ER PO SCH (08:20)
[2022-09-06] MEDS: Aspirin 81 MG Tab.EC PO SCH (08:20)
[2022-09-06] MEDS: amLODIPine 10 MG Tab PO SCH (08:21)
[2022-09-06] MEDS: Furosemide 40 MG Tab PO SCH ×2 (08:21→18:04)
[2022-09-06] MEDS: Multivitamin Tab PO SCH (08:21)
[2022-09-06] MEDS: Fish Oil/Omega-3 Fatty Acids 1 Gm Cap PO SCH ×2 (08:21→18:05)
[2022-09-06] MEDS: Pantoprazole 40 MG Tab.CR PO SCH (08:21)
[2022-09-06] MEDS: Nicotine 21 MG/24 Hr Patch TOP SCH (08:22)
[2022-09-06] MEDS: Diclofenac Sodium 1% Gel 100 GM Tube TOP SCH ×4 (08:23→22:16)
[2022-09-06] MEDS: Honey 44 ML Gel TP SCH (08:24)
[2022-09-06] MEDS: Pregabalin 25 MG Cap PO SCH (22:14)
[2022-09-07] MEDS: Acetaminophen 500 MG Tab PO SCH ×3 (02:04→17:18)
[2022-09-07] MEDS: oxyCODONE 5 MG Tab PO PRN ×5 (02:05→21:38)
[2022-09-07] MEDS: Levothyroxine 150 MCG Tab PO SCH (06:34)
[2022-09-07] MEDS: Tiotropium Bromide 4 GM Inhalation Spray (2.5mcg/1 dose; 10 doses) INH SCH (06:35)
[2022-09-07] MEDS: Diclofenac Sodium 1% Gel 100 GM Tube TOP SCH ×4 (08:05→21:40)
[2022-09-07] MEDS: Honey 44 ML Gel TP SCH (08:05)
[2022-09-07] MEDS: Insulin Glarg,Human.Rec.Analog 100 Unit/ML SUBCUT SCH (08:06)
[2022-09-07] MEDS: Nicotine 21 MG/24 Hr Patch TOP SCH (08:09)
[2022-09-07] MEDS: Multivitamin Tab PO SCH (08:10)
[2022-09-07] MEDS: Tamsulosin 0.4 MG Cap.ER PO SCH (08:10)
[2022-09-07] MEDS: Aspirin 81 MG Tab.EC PO SCH (08:10)
[2022-09-07] MEDS: Furosemide 40 MG Tab PO SCH ×2 (08:10→17:20)
[2022-09-07] MEDS: Fish Oil/Omega-3 Fatty Acids 1 Gm Cap PO SCH ×2 (08:11→17:19)
[2022-09-07] MEDS: Pantoprazole 40 MG Tab.CR PO SCH (08:11)
[2022-09-07] MEDS: Hydrocortisone 20 MG Tab PO SCH (08:11)
[2022-09-07] MEDS: metFORMIN 500 MG Tab PO SCH ×2 (08:11→17:19)
[2022-09-07] MEDS: amLODIPine 10 MG Tab PO SCH (08:11)
[2022-09-07] MEDS: Cyclobenzaprine 10 MG Tab PO SCH ×2 (08:12→21:37)
[2022-09-07] MEDS: Pregabalin 25 MG Cap PO SCH (21:37)
[2022-09-08] MEDS: Acetaminophen 500 MG Tab PO SCH ×4 (01:22→18:10)
[2022-09-08] MEDS: oxyCODONE 5 MG Tab PO PRN ×5 (01:22→22:58)
[2022-09-08] MEDS: Levothyroxine 150 MCG Tab PO SCH (06:31)
[2022-09-08] MEDS: Tiotropium Bromide 4 GM Inhalation Spray (2.5mcg/1 dose; 10 doses) INH SCH (06:42)
[2022-09-08] MEDS: Nicotine 21 MG/24 Hr Patch TOP SCH ×2 (07:31→14:55)
[2022-09-08] MEDS: Insulin Glarg,Human.Rec.Analog 100 Unit/ML SUBCUT SCH ×2 (07:32→14:54)
[2022-09-08] MEDS: Aspirin 81 MG Tab.EC PO SCH ×2 (07:34→14:54)
[2022-09-08] MEDS: Furosemide 40 MG Tab PO SCH ×3 (07:34→18:10)
[2022-09-08] MEDS: Fish Oil/Omega-3 Fatty Acids 1 Gm Cap PO SCH ×3 (07:34→18:10)
[2022-09-08] MEDS: Multivitamin Tab PO SCH ×2 (07:34→14:51)
[2022-09-08] MEDS: Tamsulosin 0.4 MG Cap.ER PO SCH ×2 (07:34→14:58)
[2022-09-08] MEDS: metFORMIN 500 MG Tab PO SCH ×4 (07:35→18:10)
[2022-09-08] MEDS: Hydrocortisone 20 MG Tab PO SCH ×2 (07:35→14:46)
[2022-09-08] MEDS: amLODIPine 10 MG Tab PO SCH ×2 (07:35→14:54)
[2022-09-08] MEDS: Pantoprazole 40 MG Tab.CR PO SCH ×2 (07:35→14:55)
[2022-09-08] MEDS: Cyclobenzaprine 10 MG Tab PO SCH ×3 (07:37→22:57)
[2022-09-08] MEDS: Honey 44 ML Gel TP SCH ×2 (07:43→14:55)
[2022-09-08] MEDS: Diclofenac Sodium 1% Gel 100 GM Tube TOP SCH ×6 (07:44→23:05)
[2022-09-08] MEDS: Pregabalin 25 MG Cap PO SCH (22:56)
[2022-09-09] MEDS: Acetaminophen 500 MG Tab PO SCH ×3 (03:02→17:14)
[2022-09-09] MEDS: oxyCODONE 5 MG Tab PO PRN ×5 (03:03→21:14)
[2022-09-09] MEDS: Levothyroxine 150 MCG Tab PO SCH (07:05)
[2022-09-09] MEDS: Tiotropium Bromide 4 GM Inhalation Spray (2.5mcg/1 dose; 10 doses) INH SCH (07:07)
[2022-09-09] MEDS: Furosemide 40 MG Tab PO SCH ×2 (09:33→17:13)
[2022-09-09] MEDS: metFORMIN 500 MG Tab PO SCH ×2 (09:33→17:13)
[2022-09-09] MEDS: Hydrocortisone 20 MG Tab PO SCH (09:33)
[2022-09-09] MEDS: Fish Oil/Omega-3 Fatty Acids 1 Gm Cap PO SCH ×2 (09:33→17:13)
[2022-09-09] MEDS: amLODIPine 10 MG Tab PO SCH (09:34)
[2022-09-09] MEDS: Aspirin 81 MG Tab.EC PO SCH (09:34)
[2022-09-09] MEDS: Multivitamin Tab PO SCH (09:34)
[2022-09-09] MEDS: Tamsulosin 0.4 MG Cap.ER PO SCH (09:34)
[2022-09-09] MEDS: Pantoprazole 40 MG Tab.CR PO SCH (09:34)
[2022-09-09] MEDS: Nicotine 21 MG/24 Hr Patch TOP SCH (09:38)
[2022-09-09] MEDS: Insulin Glarg,Human.Rec.Analog 100 Unit/ML SUBCUT SCH (09:41)
[2022-09-09] MEDS: Diclofenac Sodium 1% Gel 100 GM Tube TOP SCH ×4 (09:41→21:11)
[2022-09-09] MEDS: Honey 44 ML Gel TP SCH (09:41)
[2022-09-09] MEDS: Cyclobenzaprine 10 MG Tab PO SCH ×2 (09:42→21:11)
[2022-09-09] MEDS: Pregabalin 25 MG Cap PO SCH (21:14)
[2022-09-10] MEDS: Acetaminophen 500 MG Tab PO SCH ×3 (01:44→17:30)
[2022-09-10] MEDS: oxyCODONE 5 MG Tab PO PRN ×5 (01:46→21:48)
[2022-09-10] MEDS: Tiotropium Bromide 4 GM Inhalation Spray (2.5mcg/1 dose; 10 doses) INH SCH (06:44)
[2022-09-10] MEDS: Levothyroxine 150 MCG Tab PO SCH (06:44)
[2022-09-10] MEDS: Aspirin 81 MG Tab.EC PO SCH (09:01)
[2022-09-10] MEDS: Nicotine 21 MG/24 Hr Patch TOP SCH (09:01)
[2022-09-10] MEDS: Furosemide 40 MG Tab PO SCH ×2 (09:01→17:30)
[2022-09-10] MEDS: Hydrocortisone 20 MG Tab PO SCH (09:01)
[2022-09-10] MEDS: Cyclobenzaprine 10 MG Tab PO SCH ×2 (09:02→21:47)
[2022-09-10] MEDS: Fish Oil/Omega-3 Fatty Acids 1 Gm Cap PO SCH ×2 (09:02→17:30)
[2022-09-10] MEDS: Tamsulosin 0.4 MG Cap.ER PO SCH (09:03)
[2022-09-10] MEDS: Multivitamin Tab PO SCH (09:03)
[2022-09-10] MEDS: Pantoprazole 40 MG Tab.CR PO SCH (09:03)
[2022-09-10] MEDS: metFORMIN 500 MG Tab PO SCH ×2 (09:04→17:30)
[2022-09-10] MEDS: Diclofenac Sodium 1% Gel 100 GM Tube TOP SCH ×4 (09:04→21:50)
[2022-09-10] MEDS: Insulin Glarg,Human.Rec.Analog 100 Unit/ML SUBCUT SCH (09:05)
[2022-09-10] MEDS: Honey 44 ML Gel TP SCH (09:05)
[2022-09-10] MEDS: amLODIPine 10 MG Tab PO SCH (09:07)
[2022-09-10] MEDS: Pregabalin 25 MG Cap PO SCH (21:48)
[2022-09-11] MEDS: Acetaminophen 500 MG Tab PO SCH ×3 (01:54→17:31)
[2022-09-11] MEDS: oxyCODONE 5 MG Tab PO PRN ×5 (01:56→21:45)
[2022-09-11] MEDS: Levothyroxine 150 MCG Tab PO SCH (06:01)
[2022-09-11] MEDS: Tiotropium Bromide 4 GM Inhalation Spray (2.5mcg/1 dose; 10 doses) INH SCH (06:02)
[2022-09-11] MEDS: Diclofenac Sodium 1% Gel 100 GM Tube TOP SCH ×4 (09:13→21:48)
[2022-09-11] MEDS: Tamsulosin 0.4 MG Cap.ER PO SCH (09:13)
[2022-09-11] MEDS: amLODIPine 10 MG Tab PO SCH (09:13)
[2022-09-11] MEDS: Nicotine 21 MG/24 Hr Patch TOP SCH (09:13)
[2022-09-11] MEDS: Honey 44 ML Gel TP SCH (09:13)
[2022-09-11] MEDS: Furosemide 40 MG Tab PO SCH ×2 (09:14→17:32)
[2022-09-11] MEDS: Hydrocortisone 20 MG Tab PO SCH (09:14)
[2022-09-11] MEDS: metFORMIN 500 MG Tab PO SCH ×2 (09:14→17:32)
[2022-09-11] MEDS: Cyclobenzaprine 10 MG Tab PO SCH ×2 (09:14→21:44)
[2022-09-11] MEDS: Pantoprazole 40 MG Tab.CR PO SCH (09:14)
[2022-09-11] MEDS: Aspirin 81 MG Tab.EC PO SCH (09:16)
[2022-09-11] MEDS: Multivitamin Tab PO SCH (09:16)
[2022-09-11] MEDS: Fish Oil/Omega-3 Fatty Acids 1 Gm Cap PO SCH ×2 (09:16→17:31)
[2022-09-11] MEDS: Insulin Glarg,Human.Rec.Analog 100 Unit/ML SUBCUT SCH (09:20)
[2022-09-11] MEDS: Pregabalin 25 MG Cap PO SCH (21:43)
[2022-09-12] MEDS: oxyCODONE 5 MG Tab PO PRN ×5 (01:55→23:16)
[2022-09-12] MEDS: Acetaminophen 500 MG Tab PO SCH ×4 (01:55→23:17)
[2022-09-12] MEDS: Tiotropium Bromide 4 GM Inhalation Spray (2.5mcg/1 dose; 10 doses) INH SCH (06:01)
[2022-09-12] MEDS: Levothyroxine 150 MCG Tab PO SCH (06:02)
[2022-09-12 07:10] LABS: ANION GAP 10.5 mmol/L (5-15)
[2022-09-12] MEDS: metFORMIN 500 MG Tab PO SCH ×2 (08:01→18:36)
[2022-09-12] MEDS: Aspirin 81 MG Tab.EC PO SCH (08:01)
[2022-09-12] MEDS: Hydrocortisone 20 MG Tab PO SCH (08:01)
[2022-09-12] MEDS: Fish Oil/Omega-3 Fatty Acids 1 Gm Cap PO SCH ×2 (08:02→18:35)
[2022-09-12] MEDS: Tamsulosin 0.4 MG Cap.ER PO SCH (08:03)
[2022-09-12] MEDS: Multivitamin Tab PO SCH (08:03)
[2022-09-12] MEDS: Pantoprazole 40 MG Tab.CR PO SCH (08:05)
[2022-09-12] MEDS: Nicotine 21 MG/24 Hr Patch TOP SCH (08:05)
[2022-09-12] MEDS: amLODIPine 10 MG Tab PO SCH (08:05)
[2022-09-12] MEDS: Furosemide 40 MG Tab PO SCH ×2 (08:05→18:35)
[2022-09-12] MEDS: Cyclobenzaprine 10 MG Tab PO SCH ×2 (08:06→20:12)
[2022-09-12] MEDS: Insulin Glarg,Human.Rec.Analog 100 Unit/ML SUBCUT SCH (08:08)
[2022-09-12] MEDS: Diclofenac Sodium 1% Gel 100 GM Tube TOP SCH ×4 (08:11→20:14)
[2022-09-12] MEDS: Honey 44 ML Gel TP SCH (08:12)
[2022-09-12] MEDS: Pregabalin 25 MG Cap PO SCH (20:13)
[2022-09-13] MEDS: Acetaminophen 500 MG Tab PO SCH ×3 (02:32→17:36)
[2022-09-13] MEDS: Tiotropium Bromide 4 GM Inhalation Spray (2.5mcg/1 dose; 10 doses) INH SCH (06:22)
[2022-09-13] MEDS: Levothyroxine 150 MCG Tab PO SCH (06:23)
[2022-09-13] MEDS: oxyCODONE 5 MG Tab PO PRN (06:23)
[2022-09-13] MEDS: Nicotine 21 MG/24 Hr Patch TOP SCH (09:36)
[2022-09-13] MEDS: Honey 44 ML Gel TP SCH (09:37)
[2022-09-13] MEDS: Diclofenac Sodium 1% Gel 100 GM Tube TOP SCH ×4 (09:37→21:02)
[2022-09-13] MEDS: Aspirin 81 MG Tab.EC PO SCH (09:37)
[2022-09-13] MEDS: Cyclobenzaprine 10 MG Tab PO SCH ×2 (09:38→20:55)
[2022-09-13] MEDS: Tamsulosin 0.4 MG Cap.ER PO SCH (09:38)
[2022-09-13] MEDS: Hydrocortisone 20 MG Tab PO SCH (09:38)
[2022-09-13] MEDS: Furosemide 40 MG Tab PO SCH ×2 (09:39→17:35)
[2022-09-13] MEDS: Multivitamin Tab PO SCH (09:39)
[2022-09-13] MEDS: Pantoprazole 40 MG Tab.CR PO SCH (09:39)
[2022-09-13] MEDS: metFORMIN 500 MG Tab PO SCH ×2 (09:39→17:35)
[2022-09-13] MEDS: Fish Oil/Omega-3 Fatty Acids 1 Gm Cap PO SCH ×2 (09:39→17:35)
[2022-09-13] MEDS: amLODIPine 10 MG Tab PO SCH (09:40)
[2022-09-13] MEDS: Insulin Glarg,Human.Rec.Analog 100 Unit/ML SUBCUT SCH (09:40)
[2022-09-13] MEDS: Acetaminophen/HYDROcodone 325-10 MG Tab PO PRN ×3 (10:27→19:28)
[2022-09-13] MEDS: AMLACTIN 12% TOP SCH ×2 (14:41→20:56)
[2022-09-13] MEDS: Pregabalin 25 MG Cap PO SCH (20:56)
[2022-09-14] MEDS: Acetaminophen/HYDROcodone 325-10 MG Tab PO PRN ×5 (03:27→21:34)
[2022-09-14] MEDS: Acetaminophen 500 MG Tab PO SCH ×3 (03:29→17:33)
[2022-09-14] MEDS: Tiotropium Bromide 4 GM Inhalation Spray (2.5mcg/1 dose; 10 doses) INH SCH (06:47)
[2022-09-14] MEDS: Levothyroxine 150 MCG Tab PO SCH (06:49)
[2022-09-14] MEDS: Insulin Glarg,Human.Rec.Analog 100 Unit/ML SUBCUT SCH (08:10)
[2022-09-14] MEDS: Furosemide 40 MG Tab PO SCH ×2 (08:11→17:33)
[2022-09-14] MEDS: Cyclobenzaprine 10 MG Tab PO SCH ×2 (08:11→21:31)
[2022-09-14] MEDS: metFORMIN 500 MG Tab PO SCH ×2 (08:12→17:32)
[2022-09-14] MEDS: amLODIPine 10 MG Tab PO SCH (08:12)
[2022-09-14] MEDS: Aspirin 81 MG Tab.EC PO SCH (08:13)
[2022-09-14] MEDS: Tamsulosin 0.4 MG Cap.ER PO SCH (08:13)
[2022-09-14] MEDS: Multivitamin Tab PO SCH (08:13)
[2022-09-14] MEDS: Pantoprazole 40 MG Tab.CR PO SCH (08:13)
[2022-09-14] MEDS: Hydrocortisone 20 MG Tab PO SCH (08:13)
[2022-09-14] MEDS: Honey 44 ML Gel TP SCH (08:14)
[2022-09-14] MEDS: Nicotine 21 MG/24 Hr Patch TOP SCH (08:14)
[2022-09-14] MEDS: Fish Oil/Omega-3 Fatty Acids 1 Gm Cap PO SCH ×2 (08:14→17:33)
[2022-09-14] MEDS: AMLACTIN 12% TOP SCH ×2 (08:15→21:33)
[2022-09-14] MEDS: Diclofenac Sodium 1% Gel 100 GM Tube TOP SCH ×4 (08:16→21:39)
[2022-09-14] MEDS: Pregabalin 25 MG Cap PO SCH (21:33)
[2022-09-15] MEDS: Acetaminophen/HYDROcodone 325-10 MG Tab PO PRN ×3 (01:41→09:13)
[2022-09-15] MEDS: Acetaminophen 500 MG Tab PO SCH ×2 (01:44→08:34)
[2022-09-15] MEDS: Tiotropium Bromide 4 GM Inhalation Spray (2.5mcg/1 dose; 10 doses) INH SCH ×2 (05:51→06:11)
[2022-09-15 05:59] VITALS: PULSE 70
[2022-09-15] MEDS: Hydrocortisone 20 MG Tab PO SCH (08:32)
[2022-09-15] MEDS: Pantoprazole 40 MG Tab.CR PO SCH (08:32)
[2022-09-15] MEDS: metFORMIN 500 MG Tab PO SCH (08:32)
[2022-09-15] MEDS: Fish Oil/Omega-3 Fatty Acids 1 Gm Cap PO SCH (08:32)
[2022-09-15] MEDS: Cyclobenzaprine 10 MG Tab PO SCH (08:33)
[2022-09-15] MEDS: Aspirin 81 MG Tab.EC PO SCH (08:33)
[2022-09-15] MEDS: Tamsulosin 0.4 MG Cap.ER PO SCH (08:33)
[2022-09-15] MEDS: Furosemide 40 MG Tab PO SCH (08:34)
[2022-09-15] MEDS: Multivitamin Tab PO SCH (08:34)
[2022-09-15] MEDS: Nicotine 21 MG/24 Hr Patch TOP SCH (08:35)
[2022-09-15] MEDS: Insulin Glarg,Human.Rec.Analog 100 Unit/ML SUBCUT SCH (08:40)
[2022-09-15] MEDS: Honey 44 ML Gel TP SCH (08:42)
[2022-09-15] MEDS: Diclofenac Sodium 1% Gel 100 GM Tube TOP SCH (08:42)
[2022-09-15] MEDS: AMLACTIN 12% TOP SCH (08:44)
[2022-09-15] MEDS: amLODIPine 10 MG Tab PO SCH (08:46)
[2022-09-15 08:47] VITALS: BP 134/84
== END 2022-09-15 09:20 | disposition home health service (06) | DRG 560 ==
LOC: VM.MS 13:46
PROVIDERS: ADMIT Internal Medicine; ATTEND Internal Medicine
DX: Z47.81 Encounter for orthopedic aftercare following surgical amputation (principal); E23.0 Hypopituitarism; E27.40 Unspecified adrenocortical insufficiency; I13.0 Hypertensive heart and chronic kidney disease with heart failure and stage 1 through stage 4 chronic kidney disease, or unspecified chronic kidney disease; I50.32 Chronic diastolic (congestive) heart failure; L97.419 Non-pressure chronic ulcer of right heel and midfoot with unspecified severity; M86.9 Osteomyelitis, unspecified; Z89.512 Acquired absence of left leg below knee; E11.621 Type 2 diabetes mellitus with foot ulcer; E11.22 Type 2 diabetes mellitus with diabetic chronic kidney disease; I25.10 Atherosclerotic heart disease of native coronary artery without angina pectoris; J44.9 Chronic obstructive pulmonary disease, unspecified; E11.51 Type 2 diabetes mellitus with diabetic peripheral angiopathy without gangrene; N18.9 Chronic kidney disease, unspecified; E11.69 Type 2 diabetes mellitus with other specified complication; E11.65 Type 2 diabetes mellitus with hyperglycemia; N40.1 Benign prostatic hyperplasia with lower urinary tract symptoms; R33.8 Other retention of urine; E66.9 Obesity, unspecified; K21.9 Gastro-esophageal reflux disease without esophagitis; F41.9 Anxiety disorder, unspecified; F32.A Depression, unspecified; E78.5 Hyperlipidemia, unspecified; E03.9 Hypothyroidism, unspecified; F17.210 Nicotine dependence, cigarettes, uncomplicated; Z95.5 Presence of coronary angioplasty implant and graft; Z91.040 Latex allergy status; Z88.1 Allergy status to other antibiotic agents; Z79.899 Other long term (current) drug therapy; Z79.82 Long term (current) use of aspirin; Z90.49 Acquired absence of other specified parts of digestive tract; Z86.14 Personal history of Methicillin resistant Staphylococcus aureus infection; Z98.1 Arthrodesis status
CPT/HCPCS: 36415; 51798; 80048; 82947; 85025; 95851-GO; 97110-GP; 97116-GP; 97162-GP; 97166-GO; 97530-GP; 97535-GO; A9270-GY; J1815-GY

== ENCOUNTER 2023-02-25 23:15 | Emergency (ER) | payer OTHER, MEDICARE ==
[2023-02-25 23:30] VITALS: BP 126/64; PULSE 76
[2023-02-25] MEDS ORDERED: STERILE IM ONE (23:30)
[2023-02-25] MEDS ORDERED: CEFAZOLIN IM ONE (23:30)
[2023-02-25] MEDS ORDERED: WATER FOR INJECTION IM ONE (23:30)
[2023-02-25] MEDS ORDERED: Take Home: Sulfamethoxazole/Trimethoprim 800-160 MG Tab, 6 Tab Pack PO ONE (23:34)
[2023-02-25] MEDS ORDERED: ceFAZolin 1 GM Vial IM ONE (23:36)
== END 2023-02-25 23:57 | disposition home or self-care (01) ==
LOC: VM.ED 23:15
DX: L03.115 Cellulitis of right lower limb (principal); I25.119 Atherosclerotic heart disease of native coronary artery with unspecified angina pectoris; I11.0 Hypertensive heart disease with heart failure; I50.9 Heart failure, unspecified; I25.2 Old myocardial infarction; J44.9 Chronic obstructive pulmonary disease, unspecified; K21.9 Gastro-esophageal reflux disease without esophagitis; E11.21 Type 2 diabetes mellitus with diabetic nephropathy; E11.40 Type 2 diabetes mellitus with diabetic neuropathy, unspecified; E03.9 Hypothyroidism, unspecified; E66.9 Obesity, unspecified; F17.210 Nicotine dependence, cigarettes, uncomplicated; Z68.32 Body mass index [BMI] 32.0-32.9, adult; Z91.040 Latex allergy status; Z88.8 Allergy status to other drugs, medicaments and biological substances; Z88.1 Allergy status to other antibiotic agents; Z79.84 Long term (current) use of oral hypoglycemic drugs; Z79.82 Long term (current) use of aspirin; Z79.899 Other long term (current) drug therapy
CPT/HCPCS: 87070; 87077; 99283; 99284; A9270-GY; J0690

== ENCOUNTER 2023-11-05 12:38 | Emergency (ER) | payer OTHER, MEDICARE ==
[2023-11-05 13:17] LABS: BASOPHILS ABSOLUTE AUTO 0.1 x10^3/uL (0.0-0.2); BASOPHILS PERCENT AUTO 0.9 % (0.2-1.2); EOSINOPHILS ABSOLUTE AUTO 0.2 x10^3/uL (0.0-0.5); EOSINOPHILS PERCENT AUTO 2.1 % (0.0-4.0); HEMATOCRIT 40.8 % (40.0-52.0); HEMOGLOBIN 12.4 g/dL (14.0-18.0); IMMATURE GRAN ABSOLUTE AUTO 0.05 x10^3/uL (0.00-0.07); LYMPHOCYTES ABSOLUTE AUTO 1.4 x10^3/uL (1.0-4.8); MEAN CORPUSCULAR HEMOGLOBIN 25.3 pg (26.0-32.0); MEAN CORPUSCULAR HGB CONC 30.4 g/dL (32.0-36.0); MEAN CORPUSCULAR VOLUME 83.3 fL (78.0-93.0); MONOCYTES ABSOLUTE AUTO 0.5 x10^3/uL (0.0-0.8); MONOCYTES PERCENT AUTO 4.9 % (2.0-11.0); NEUTROPHILS ABSOLUTE AUTO 7.7 x10^3/uL (1.8-7.7); NEUTROPHILS PERCENT AUTO 77.6 % (50.0-80.0); PLATELET COUNT,PLT 273 x10^3/uL (130-400); WHITE BLOOD CELL COUNT,WBC 9.9 x10^3/uL (4.0-10.0)
[2023-11-05] MEDS: Alum Hydrox/Mag Hydrox/Simeth 30 ML, Lidocaine 2% 15 ML, Promethazine 12.5 MG PO ONE (13:19)
[2023-11-05] MEDS: LORazepam 1 MG Tab PO ONE (13:20)
[2023-11-05 13:33] LABS: ALANINE AMINOTRANSFERASE,ALT 20 U/L (16-63); ALBUMIN 3.5 g/dL (3.4-5.0); ALKALINE PHOSPHATASE 81 U/L (46-116); ASPARTATE AMNIOTRANSFERASE,AST 17 U/L (15-37); BILIRUBIN TOTAL 0.3 mg/dL (0.2-1.0); BLOOD UREA NITROGEN,BUN 29 mg/dL (7-18); CALCIUM 8.9 mg/dL (8.5-10.1); CARBON DIOXIDE,CO2 29 mmol/L (21-32); CHLORIDE,CL 98 mmol/L (98-107); CREATININE 1.8 mg/dL (0.70-1.30); GLUCOSE RANDOM 188 mg/dL (70-99); MAGNESIUM 2.1 mg/dL (1.8-2.4); POTASSIUM,K 4.6 mmol/L (3.5-5.1); PROTEIN TOTAL,TP 7.9 g/dL (6.4-8.2); SODIUM,NA 137 mmol/L (136-145)
[2023-11-05 13:36] LABS: ANION GAP 14.6 mmol/L (5-15); ESTIMATED GFR 39 mL/min (>=60)
[2023-11-05] MEDS: Take Home: LORazepam 0.5 MG Tab, 2 Tab Pack PO ONE (13:52)
[2023-11-05 15:17] VITALS: BP 132/48; PULSE 80
== END 2023-11-05 14:04 | disposition home or self-care (01) ==
LOC: VM.ED 12:38
DX: K21.9 Gastro-esophageal reflux disease without esophagitis (principal); F41.9 Anxiety disorder, unspecified; I11.0 Hypertensive heart disease with heart failure; I50.9 Heart failure, unspecified; I25.10 Atherosclerotic heart disease of native coronary artery without angina pectoris; J44.9 Chronic obstructive pulmonary disease, unspecified; E11.40 Type 2 diabetes mellitus with diabetic neuropathy, unspecified; E03.9 Hypothyroidism, unspecified; F17.210 Nicotine dependence, cigarettes, uncomplicated; E66.9 Obesity, unspecified; Z90.49 Acquired absence of other specified parts of digestive tract; Z79.84 Long term (current) use of oral hypoglycemic drugs; Z79.899 Other long term (current) drug therapy; Z79.82 Long term (current) use of aspirin; Z91.040 Latex allergy status; Z88.8 Allergy status to other drugs, medicaments and biological substances; Z88.1 Allergy status to other antibiotic agents; Z88.5 Allergy status to narcotic agent; Z68.34 Body mass index [BMI] 34.0-34.9, adult
CPT/HCPCS: 36415; 80053; 83735; 85025; 99284; A9270-GY

== ENCOUNTER 2023-12-17 12:35 | Emergency (ER) | payer OTHER, MEDICARE ==
[2023-12-17 12:52] VITALS: BP 155/70; PULSE 74
[2023-12-17] MEDS: Alum Hydrox/Mag Hydrox/Simeth 30 ML, Lidocaine 2% 15 ML, Promethazine 12.5 MG PO ONE (13:09)
[2023-12-17] MEDS: LORazepam 1 MG Tab PO ONE (13:09)
== END 2023-12-17 13:14 | disposition home or self-care (01) ==
LOC: VM.ED 12:35
DX: F41.9 Anxiety disorder, unspecified (principal); K21.9 Gastro-esophageal reflux disease without esophagitis; I11.0 Hypertensive heart disease with heart failure; I50.9 Heart failure, unspecified; I25.2 Old myocardial infarction; I25.10 Atherosclerotic heart disease of native coronary artery without angina pectoris; J44.9 Chronic obstructive pulmonary disease, unspecified; E11.21 Type 2 diabetes mellitus with diabetic nephropathy; E03.9 Hypothyroidism, unspecified; E66.9 Obesity, unspecified; F17.210 Nicotine dependence, cigarettes, uncomplicated; Z95.5 Presence of coronary angioplasty implant and graft; Z79.899 Other long term (current) drug therapy; Z79.84 Long term (current) use of oral hypoglycemic drugs; Z79.4 Long term (current) use of insulin; Z79.82 Long term (current) use of aspirin; Z88.8 Allergy status to other drugs, medicaments and biological substances; Z88.1 Allergy status to other antibiotic agents; Z91.040 Latex allergy status
CPT/HCPCS: 99283; 99284; A9270

== ENCOUNTER 2023-12-27 09:45 | Inpatient (IN) | payer MEDICARE, OTHER ==
[2023-12-27] MEDS ORDERED: Sodium Chloride 0.9% 10 ML Syringe FLUSH PRN (13:34)
[2023-12-27] MEDS ORDERED: 50% Dextrose in Water 50 ML Syringe IVPUSH PRN (13:34)
[2023-12-27] MEDS ORDERED: Glucagon,Human Recombinant 1 MG Vial IM PRN ×2 (13:34)
[2023-12-27] MEDS ORDERED: Albuterol HFA 18 Gm Inhaler INH PRN (13:34)
[2023-12-27] MEDS ORDERED: Sodium Chloride 0.65% Nasal Spray 45 ML Bottle NASBOTH PRN (13:34)
[2023-12-27] MEDS ORDERED: Ondansetron 4 MG/2 ML SDV IV PRN (13:34)
[2023-12-27] MEDS: Furosemide 40 MG Tab PO SCH (14:14)
[2023-12-27] MEDS: Acetaminophen/HYDROcodone 325-10 MG Tab PO PRN (16:46)
[2023-12-27] MEDS: Fish Oil/Omega-3 Fatty Acids 1 Gm Cap PO SCH (17:57)
[2023-12-27] MEDS: Sulfamethoxazole/Trimethoprim 400-80 MG Tab PO SCH (20:57)
[2023-12-27] MEDS: Pregabalin 25 MG Cap PO SCH (20:58)
[2023-12-27] MEDS: VANCOmycin 1.25 GM/250 ML 1.25 GM in Premix Bag 1 BAG IV SCH (20:59)
[2023-12-28] MEDS: LORazepam 0.5 MG Tab PO PRN (02:43)
[2023-12-28] MEDS: Pantoprazole 40 MG Tab.CR PO SCH (06:39)
[2023-12-28] MEDS: Levothyroxine 150 MCG Tab PO SCH (06:40)
[2023-12-28 07:04] LABS: HEMATOCRIT 36.3 % (40.0-52.0); HEMOGLOBIN 11.4 g/dL (14.0-18.0); MEAN CORPUSCULAR HEMOGLOBIN 25.2 pg (26.0-32.0); MEAN CORPUSCULAR HGB CONC 31.4 g/dL (32.0-36.0); MEAN CORPUSCULAR VOLUME 80.1 fL (78.0-93.0); RED BLOOD CELL COUNT 4.53 x10^6/uL (4.5-6.0)
[2023-12-28 07:16] LABS: ANION GAP 16.9 mmol/L (5-15); CALCIUM 8.6 mg/dL (8.5-10.1); CREATININE 1.8 mg/dL (0.70-1.30); EST CRCL DRUG DOSING (CG) 56.28 mL/min; POTASSIUM,K 3.9 mmol/L (3.5-5.1)
[2023-12-28] MEDS: Metoprolol Succinate 50 MG Tab.ER PO SCH (08:29)
[2023-12-28] MEDS: Aspirin 81 MG Tab.EC PO SCH (08:29)
[2023-12-28] MEDS: Tamsulosin 0.4 MG Cap.ER PO SCH (08:30)
[2023-12-28] MEDS: amLODIPine 10 MG Tab PO SCH (08:30)
[2023-12-28] MEDS: Hydrocortisone 20 MG Tab PO SCH (08:31)
[2023-12-28] MEDS: Multivitamin Tab PO SCH (08:31)
[2023-12-28] MEDS: Enoxaparin 30 MG/0.3 ML Syringe SUBCUT SCH (08:32)
[2023-12-28] MEDS: Insulin Glarg,Human.Rec.Analog 100 Unit/ML 10 ML Vial SUBCUT SCH (08:33)
[2023-12-28] MEDS: Tiotropium Bromide 4 GM Inhalation Spray (2.5mcg/1 dose; 10 doses) INH SCH (08:46)
[2023-12-28] MEDS: Nicotine 21 MG/24 Hr Patch TRDERM SCH ×2 (17:37→20:05)
[2023-12-28] MEDS: Albuterol 0.083% 2.5 MG/3 ML Neb Soln NEB PRN (20:04)
[2023-12-28] MEDS: Codeine/guaiFENesin 10-100 MG/5 ML Syrup 5 ML Cup PO PRN (20:05)
[2023-12-29] MEDS: Sodium Chloride 0.9% 10 ML Syringe FLUSH PRN (13:59)
[2023-12-29] MEDS: Sodium Chloride 0.9% 10 ML Syringe IV SCH (20:35)
[2023-12-31] MEDS: Acetaminophen 500 MG Tab PO PRN (06:22)
[2023-12-31 07:58] LABS: HEMATOCRIT 36.3 % (40.0-52.0); HEMOGLOBIN 11.2 g/dL (14.0-18.0); MEAN CORPUSCULAR HEMOGLOBIN 25.2 pg (26.0-32.0); MEAN CORPUSCULAR HGB CONC 30.9 g/dL (32.0-36.0); MEAN CORPUSCULAR VOLUME 81.8 fL (78.0-93.0); RED BLOOD CELL COUNT 4.44 x10^6/uL (4.5-6.0); WHITE BLOOD CELL COUNT,WBC 9.9 x10^3/uL (4.0-10.0)
[2023-12-31 08:08] LABS: ANION GAP 16.1 mmol/L (5-15); CALCIUM 8.7 mg/dL (8.5-10.1); CREATININE 1.9 mg/dL (0.70-1.30); EST CRCL DRUG DOSING (CG) 34.63 mL/min; POTASSIUM,K 4.1 mmol/L (3.5-5.1)
[2023-12-31] MEDS: Calcium Carbonate 750 MG Tab.Chew PO PRN (09:16)
[2024-01-01 05:39] VITALS: PULSE 70
[2024-01-01] MEDS: VANCOmycin 1.25 GM/250 ML 1.25 GM in Premix Bag 1 BAG IV SCH (16:52)
[2024-01-02 08:17] VITALS: BP 150/72
== END 2024-01-02 13:50 | disposition home or self-care (01) | DRG 565 ==
LOC: VM.MS 12:17
PROVIDERS: ADMIT Internal Medicine; ATTEND Internal Medicine
DX: T87.44 Infection of amputation stump, left lower extremity (principal); E23.0 Hypopituitarism; L03.115 Cellulitis of right lower limb; M86.9 Osteomyelitis, unspecified; I13.0 Hypertensive heart and chronic kidney disease with heart failure and stage 1 through stage 4 chronic kidney disease, or unspecified chronic kidney disease; I50.32 Chronic diastolic (congestive) heart failure; E11.51 Type 2 diabetes mellitus with diabetic peripheral angiopathy without gangrene; E11.42 Type 2 diabetes mellitus with diabetic polyneuropathy; F41.9 Anxiety disorder, unspecified; F32.A Depression, unspecified; M54.9 Dorsalgia, unspecified; G89.29 Other chronic pain; E11.22 Type 2 diabetes mellitus with diabetic chronic kidney disease; I25.10 Atherosclerotic heart disease of native coronary artery without angina pectoris; J44.89 Other specified chronic obstructive pulmonary disease; E66.9 Obesity, unspecified; E03.9 Hypothyroidism, unspecified; E11.21 Type 2 diabetes mellitus with diabetic nephropathy; F17.210 Nicotine dependence, cigarettes, uncomplicated; N18.30 Chronic kidney disease, stage 3 unspecified; K21.9 Gastro-esophageal reflux disease without esophagitis; F43.10 Post-traumatic stress disorder, unspecified; G47.00 Insomnia, unspecified; Z98.890 Other specified postprocedural states; Z79.4 Long term (current) use of insulin; Z91.040 Latex allergy status; Z88.8 Allergy status to other drugs, medicaments and biological substances; Z88.2 Allergy status to sulfonamides; Z79.899 Other long term (current) drug therapy; Z79.82 Long term (current) use of aspirin; Z79.51 Long term (current) use of inhaled steroids; I25.2 Old myocardial infarction; Z95.5 Presence of coronary angioplasty implant and graft; Z68.35 Body mass index [BMI] 35.0-35.9, adult; Z90.89 Acquired absence of other organs; Z90.49 Acquired absence of other specified parts of digestive tract; Z98.1 Arthrodesis status
CPT/HCPCS: 36415; 80048; 80202; 82947; 85027; 86140; 94640; 95851-GO; 97110-GP; 97116-GP; 97530-GP; 97535-GO; A9270-GY; J1650; J3370; J3490; J7613-GY

== ENCOUNTER 2024-01-15 13:07 | Inpatient (IN) | payer MEDICARE, OTHER ==
[2024-01-15] MEDS: Acetaminophen/HYDROcodone 325-10 MG Tab PO PRN (15:46)
[2024-01-15] MEDS ORDERED: Glucagon,Human Recombinant 1 MG Vial IM PRN (16:22)
[2024-01-15] MEDS ORDERED: Codeine/guaiFENesin 10-100 MG/5 ML Syrup 5 ML Cup PO PRN (16:22)
[2024-01-15] MEDS ORDERED: Calcium Carbonate 750 MG Tab.Chew PO PRN (16:22)
[2024-01-15] MEDS ORDERED: 50% Dextrose in Water 50 ML Syringe IVPUSH PRN (16:22)
[2024-01-15] MEDS ORDERED: Albuterol HFA 18 Gm Inhaler INH PRN (16:22)
[2024-01-15] MEDS ORDERED: Sodium Chloride 0.65% Nasal Spray 45 ML Bottle NASBOTH PRN (16:22)
[2024-01-15] MEDS ORDERED: [UNRECOGNIZED DRUG - OTHER] IV SCH (16:30)
[2024-01-15] MEDS ORDERED: VANCOMYCIN IV SCH (16:30)
[2024-01-15] MEDS: Furosemide 40 MG Tab PO SCH (17:00)
[2024-01-15] MEDS: VANCOmycin 1.25 GM/250 ML 250 ML IV SCH (18:11)
[2024-01-15] MEDS: Pregabalin 25 MG Cap PO SCH (20:05)
[2024-01-15] MEDS: Polyethylene Glycol 3350 Powder 17 GM Packet PO SCH (20:06)
[2024-01-16] MEDS: Acetaminophen 500 MG Tab PO PRN (03:04)
[2024-01-16] MEDS: LORazepam 0.5 MG Tab PO PRN (04:31)
[2024-01-16] MEDS: Levothyroxine 150 MCG Tab PO SCH (06:37)
[2024-01-16] MEDS: Tiotropium Bromide 4 GM Inhalation Spray (2.5mcg/1 dose; 10 doses) INH SCH (06:37)
[2024-01-16] MEDS: Nicotine 21 MG/24 Hr Patch TRDERM SCH (08:41)
[2024-01-16] MEDS: Pantoprazole 40 MG Tab.CR PO SCH (08:42)
[2024-01-16] MEDS: amLODIPine 10 MG Tab PO SCH (08:42)
[2024-01-16] MEDS: Metoprolol Succinate 50 MG Tab.ER PO SCH (08:43)
[2024-01-16] MEDS: Fish Oil/Omega-3 Fatty Acids 1 Gm Cap PO SCH ×2 (08:44→20:29)
[2024-01-16] MEDS: Tamsulosin 0.4 MG Cap.ER PO SCH (08:44)
[2024-01-16] MEDS: Aspirin 81 MG Tab.EC PO SCH (08:44)
[2024-01-16] MEDS: Pregabalin 25 MG Cap PO SCH (08:45)
[2024-01-16] MEDS: Multivitamin Tab PO SCH (08:45)
[2024-01-16] MEDS: Sennosides/Docusate Sodium 50-8.6 MG Tab PO SCH (08:45)
[2024-01-16] MEDS: Hydrocortisone 20 MG Tab PO SCH (08:45)
[2024-01-16] MEDS: Alteplase 2 MG Vial IVPUSH ONE (08:46)
[2024-01-16] MEDS: Insulin Glarg,Human.Rec.Analog 100 Unit/ML 10 ML Vial SUBCUT SCH (10:43)
[2024-01-16] MEDS: Remove Patch NICOTINE PATCH TRDERM SCH (10:55)
[2024-01-16] MEDS: Omega-3 Acid Ethyl Esters [Lovaza] 1 GM Capsule PO SCH (10:56)
[2024-01-16] MEDS: Heparin Sodium 100 Units/ML 3 ML Syringe IVPUSH SCH ×2 (11:00→18:30)
[2024-01-17] MEDS: Sodium Chloride 0.9% 10 ML Syringe FLUSH PRN (06:27)
[2024-01-17 06:56] LABS: BASOPHILS ABSOLUTE AUTO 0.1 x10^3/uL (0.0-0.2); BASOPHILS PERCENT AUTO 1.1 % (0.2-1.2); EOSINOPHILS ABSOLUTE AUTO 0.5 x10^3/uL (0.0-0.5); EOSINOPHILS PERCENT AUTO 6.4 % (0.0-4.0); HEMATOCRIT 37.5 % (40.0-52.0); HEMOGLOBIN 11.3 g/dL (14.0-18.0); IMMATURE GRAN ABSOLUTE AUTO 0.02 x10^3/uL (0.00-0.07); LYMPHOCYTES ABSOLUTE AUTO 2.8 x10^3/uL (1.0-4.8); MEAN CORPUSCULAR HEMOGLOBIN 25.5 pg (26.0-32.0); MEAN CORPUSCULAR HGB CONC 30.1 g/dL (32.0-36.0); MEAN CORPUSCULAR VOLUME 84.7 fL (78.0-93.0); MONOCYTES ABSOLUTE AUTO 0.7 x10^3/uL (0.0-0.8); MONOCYTES PERCENT AUTO 8.4 % (2.0-11.0); NEUTROPHILS ABSOLUTE AUTO 4.1 x10^3/uL (1.8-7.7); NEUTROPHILS PERCENT AUTO 49.9 % (50.0-80.0); RED BLOOD CELL COUNT 4.43 x10^6/uL (4.5-6.0); WHITE BLOOD CELL COUNT,WBC 8.2 x10^3/uL (4.0-10.0)
[2024-01-17 07:20] LABS: CREATININE 1.7 mg/dL (0.70-1.30)
[2024-01-17 07:22] LABS: ESTIMATED GFR 42 mL/min (>=60)
[2024-01-17 07:38] LABS: PLATELET COUNT,PLT 214 x10^3/uL (130-400)
[2024-01-17] MEDS ORDERED: Albuterol/Ipratropium 3.0-0.5 MG/3 ML Neb Soln NEB PRN (07:53)
[2024-01-17] MEDS: Insulin Glarg,Human.Rec.Analog 100 Unit/ML 10 ML Vial SUBCUT SCH (08:42)
[2024-01-17] MEDS ORDERED: Glucagon,Human Recombinant 1 MG Vial IM PRN ×2 (16:53→17:11)
[2024-01-17] MEDS ORDERED: 50% Dextrose in Water 50 ML Syringe IVPUSH PRN ×2 (16:53→17:11)
[2024-01-17] MEDS: Insulin Lispro 100 Units/ML 3 ML Vial SUBCUT SCH (17:56)
[2024-01-17] MEDS: Insulin Lispro 100 Units/ML 3 ML Vial SUBCUT ONE (17:58)
[2024-01-18] MEDS: Testosterone Cypionate 200 MG/ML MDV IM SCH (13:07)
[2024-01-18] MEDS: Cyanocobalamin (Vitamin B12) 1,000 MCG/ML SDV IM SCH (13:07)
[2024-01-18] MEDS: ESCITALOPRAM 5 MG PO SCH (13:09)
[2024-01-20] MEDS: Escitalopram 10 MG Tab PO SCH (08:36)
[2024-01-24 07:09] LABS: HEMATOCRIT 37.3 % (40.0-52.0); HEMOGLOBIN 11.5 g/dL (14.0-18.0); MEAN CORPUSCULAR HEMOGLOBIN 25.6 pg (26.0-32.0); MEAN CORPUSCULAR HGB CONC 30.8 g/dL (32.0-36.0); MEAN CORPUSCULAR VOLUME 82.9 fL (78.0-93.0); RED BLOOD CELL COUNT 4.5 x10^6/uL (4.5-6.0); WHITE BLOOD CELL COUNT,WBC 9.4 x10^3/uL (4.0-10.0)
[2024-01-24 07:14] LABS: CREATININE 1.6 mg/dL (0.70-1.30); EST CRCL DRUG DOSING (CG) 40.51 mL/min
[2024-01-25] MEDS: Tamsulosin 0.4 MG Cap.ER PO SCH (08:02)
[2024-01-25] MEDS: Insulin Glarg,Human.Rec.Analog 100 Unit/ML 10 ML Vial SUBCUT SCH (08:05)
[2024-01-26 08:55] VITALS: BP 170/84; PULSE 72
== END 2024-01-26 11:30 | DRG 560 ==
LOC: VM.MS 14:50
PROVIDERS: ADMIT Internal Medicine; ATTEND Internal Medicine
DX: Z47.81 Encounter for orthopedic aftercare following surgical amputation (principal); E23.0 Hypopituitarism; I50.30 Unspecified diastolic (congestive) heart failure; E11.40 Type 2 diabetes mellitus with diabetic neuropathy, unspecified; E11.51 Type 2 diabetes mellitus with diabetic peripheral angiopathy without gangrene; F17.200 Nicotine dependence, unspecified, uncomplicated; J44.9 Chronic obstructive pulmonary disease, unspecified; N18.30 Chronic kidney disease, stage 3 unspecified; E66.9 Obesity, unspecified; E11.22 Type 2 diabetes mellitus with diabetic chronic kidney disease; E03.8 Other specified hypothyroidism; F43.10 Post-traumatic stress disorder, unspecified; M54.9 Dorsalgia, unspecified; G89.29 Other chronic pain; F41.9 Anxiety disorder, unspecified; F32.A Depression, unspecified; I25.10 Atherosclerotic heart disease of native coronary artery without angina pectoris; K29.50 Unspecified chronic gastritis without bleeding; E11.65 Type 2 diabetes mellitus with hyperglycemia; F43.20 Adjustment disorder, unspecified; Z98.890 Other specified postprocedural states; Z68.35 Body mass index [BMI] 35.0-35.9, adult; Z95.5 Presence of coronary angioplasty implant and graft; Z79.899 Other long term (current) drug therapy; Z98.1 Arthrodesis status; Z90.49 Acquired absence of other specified parts of digestive tract; Z90.89 Acquired absence of other organs; Z89.512 Acquired absence of left leg below knee
CPT/HCPCS: 36415; 80202; 82565; 82947; 84460; 85025; 85027; 95851-GO; 97110-GP; 97161-GP; 97165-GO; 97530-GP; 97535-GO; A9270-GY; J1071; J1642; J1815-GY; J2997; J3370; J3420; J3490

== ENCOUNTER 2025-03-06 07:11 | Day surgery (SDC) | payer MEDICARE, OTHER ==
[2025-03-06] MEDS: Lactated Ringers 1,000 ML IV SCH (07:48)
[2025-03-06] MEDS ORDERED: fentaNYL 100 MCG/2 ML SDV ONE (08:04)
[2025-03-06] MEDS ORDERED: Midazolam 1 MG/ML 2 ML SDV ONE (08:04)
[2025-03-06] MEDS ORDERED: Propofol 200 MG/20 ML SDV ONE ×2 (08:05→08:50)
[2025-03-06 09:41] VITALS: BP 131/69; PULSE 80
== END 2025-03-06 13:48 | disposition home or self-care (01) ==
LOC: VM.SDS 07:11
PROVIDERS: ATTEND Family Medicine
DX: Z12.11 Encounter for screening for malignant neoplasm of colon (principal); D12.6 Benign neoplasm of colon, unspecified; E11.40 Type 2 diabetes mellitus with diabetic neuropathy, unspecified; I10 Essential (primary) hypertension; I25.10 Atherosclerotic heart disease of native coronary artery without angina pectoris; Z86.0100 Personal history of colon polyps, unspecified; Z79.4 Long term (current) use of insulin; Z79.899 Other long term (current) drug therapy
CPT/HCPCS: 82947; 88305; J2250; J2704; J3010; J7120

== ENCOUNTER 2025-05-04 16:49 | Emergency (ER) | payer OTHER, MEDICARE ==
[2025-05-04 17:24] LABS: BASOPHILS ABSOLUTE AUTO 0.1 x10^3/uL (0.0-0.2); BASOPHILS PERCENT AUTO 0.8 % (0.2-1.2); EOSINOPHILS ABSOLUTE AUTO 0.2 x10^3/uL (0.0-0.5); EOSINOPHILS PERCENT AUTO 2.2 % (0.0-4.0); IMMATURE GRAN ABSOLUTE AUTO 0.10 x10^3/uL (0.00-0.07); IMMATURE GRAN PERCENT AUTO 1.00 % (0.00-0.43); LYMPHOCYTES ABSOLUTE AUTO 1.8 x10^3/uL (1.0-4.8); LYMPHOCYTES PERCENT AUTO 18.2 % (25.0-50.0); MONOCYTES ABSOLUTE AUTO 0.6 x10^3/uL (0.0-0.8); MONOCYTES PERCENT AUTO 6.2 % (2.0-11.0); NEUTROPHILS ABSOLUTE AUTO 7.1 x10^3/uL (1.8-7.7); NEUTROPHILS PERCENT AUTO 71.6 % (50.0-80.0); PLATELET COUNT,PLT 191 x10^3/uL (130-400); RED BLOOD CELL COUNT 5.39 x10^6/uL (4.5-6.0); WHITE BLOOD CELL COUNT,WBC 9.9 x10^3/uL (4.0-10.0)
[2025-05-04 17:51] VITALS: BP 162/77; PULSE 78
[2025-05-04 18:01] LABS: A/G RATIO 0.71; BILIRUBIN TOTAL 0.4 mg/dL (0.2-1.0); BLOOD UREA NITROGEN,BUN 18.0 mg/dL (7-18); CARBON DIOXIDE,CO2 31.0 mmol/L (21-32); CHLORIDE,CL 100.0 mmol/L (98-107); CREATINE KINASE,CK 61.0 U/L (39-308); CREATININE 1.8 mg/dL (0.70-1.30); EST CRCL DRUG DOSING (CG) 35.46 mL/min; ESTIMATED GFR 39.0 mL/min (>=60); GLUCOSE RANDOM 263.0 mg/dL (70-99); POTASSIUM,K 4.7 mmol/L (3.5-5.1); PRO B-TYPE NATRIUR PEPT,BNPPRO 1525.0 pg/mL (<=450); PROTEIN TOTAL,TP 7.2 g/dL (6.4-8.2); SODIUM,NA 139.0 mmol/L (136-145)
[2025-05-04 18:08] LABS: ALANINE AMINOTRANSFERASE,ALT 8.0 U/L (16-63); ASPARTATE AMNIOTRANSFERASE,AST 13.0 U/L (15-37)
[2025-05-04] MEDS: methylPREDNISolone Sodium Succinate 125 MG/2 ML SDV IM ONE (19:00)
== END 2025-05-04 18:59 | disposition swing bed (61) ==
LOC: VM.ED 16:49
DX: J44.1 Chronic obstructive pulmonary disease with (acute) exacerbation (principal); I13.0 Hypertensive heart and chronic kidney disease with heart failure and stage 1 through stage 4 chronic kidney disease, or unspecified chronic kidney disease; I50.9 Heart failure, unspecified; N18.9 Chronic kidney disease, unspecified; K21.9 Gastro-esophageal reflux disease without esophagitis; E78.00 Pure hypercholesterolemia, unspecified; E66.9 Obesity, unspecified; E11.22 Type 2 diabetes mellitus with diabetic chronic kidney disease; E03.9 Hypothyroidism, unspecified; Z88.1 Allergy status to other antibiotic agents; Z88.8 Allergy status to other drugs, medicaments and biological substances; Z91.040 Latex allergy status; Z79.82 Long term (current) use of aspirin; Z79.4 Long term (current) use of insulin; Z79.899 Other long term (current) drug therapy; Z90.49 Acquired absence of other specified parts of digestive tract; Z68.36 Body mass index [BMI] 36.0-36.9, adult
CPT/HCPCS: 36415; 71045; 80053; 82550; 83605; 83880; 84484; 85025; 86140; 94640; 99284; 99285; A9270-GY; J2919